=== PATIENT | female | born 1945 | race Caucasian/White ===

== ENCOUNTER 2018-11-01 23:31 | Emergency (ER) | payer MEDICARE, OTHER ==
[~2018-11-01] VITALS: Ht 154.9 cm; Wt 44.5 kg
[~2018-11-01 23:31] MED LIST: AMLO10TA6 PO; AMLO5TAB7 PO; ASPI-630 PO; ATEN25TA PO; ATOR20TA58 PO; CYAN10005 PO; HYDR-3164 PO; HYDR12.58 PO; LEVO75TA5 PO; LISI-130 PO; LISI10TA2 PO; MAGN400C PO; PANT40TA3 PO; PANT40TA5 PO; POTA10TA12 PO
[2018-11-01] MEDS ORDERED: METH4TAB2 PO (23:49)
--- NOTE | 2018-11-01 23:51 | PHYS DOC ---
Past Medical History Past Medical History: Hypertension Additional Past Medical Histor: "poor circulation" Past Surgical History: Other Additional Past Surgical Histo: stents placed in legs, knee surgery Alcohol Use: Occasionally Drug Use: None Adult General Chief Complaint Chief Complaint: SKIN RASH/ABSCESS [facility] Patient is a 73 year old female who presents with extremely itchy rash to her back, abdomen, arms and bilateral breasts. She states the rash has been ongoing for approximately 3 days. She has tried Benadryl with no relief. She states that she was seen in emergency department a week ago for a cough. She was given a codeine cough medicine and thinks that she might be having an allergic reaction to that medication. Review of Systems Review of Systems Constitutional: Denies fever or chills [] Eyes: Denies change in visual acuity, redness, or eye pain [] HENT: Denies nasal congestion or sore throat [] Respiratory: Denies cough or shortness of breath [] Cardiovascular: No additional information not addressed in HPI [] GI: Denies abdominal pain, nausea, vomiting, bloody stools or diarrhea [] : Denies dysuria or hematuria [] Musculoskeletal: Denies back pain or joint pain [] Integument: See history of present illness Neurologic: Denies headache, focal weakness or sensory changes [] Endocrine: Denies polyuria or polydipsia [] All other systems were reviewed and found to be within normal limits, except as documented in this note. Current Medications Current Medications Current Medications Medications (Trade) Dose Ordered Sig/Mathieu Start Time Stop Time Status Last Admin Dose Admin Clonidine HCl (Catapres) 0.1 mg 1X ONCE 11/02/18 00:30 11/02/18 00:31 DC 11/02/18 00:07 0.1 MG Prednisone (Prednisone) 50 mg 1X ONCE 11/02/18 00:00 11/02/18 00:01 DC 11/01/18 23:53 50 MG Allergies Allergies Allergies Coded Allergies Type Severity Reaction Last Updated Verified acetaminophen Allergy Intermediate 11/01/18 No codeine Allergy Intermediate hives 12/15/14 Yes ezetimibe Allergy Intermediate Rash 03/06/15 Yes hydrocodone Allergy Intermediate 11/01/18 No Physical Exam Physical Exam Constitutional: Well developed, well nourished, no acute distress, non-toxic appearance. [] HENT: Normocephalic, atraumatic, bilateral external ears normal, oropharynx moist, no oral exudates, nose normal. [] Eyes: PERRLA, EOMI, conjunctiva normal, no discharge. [] Neck: Normal range of motion, no tenderness, supple, no stridor. [] Cardiovascular:Heart rate regular rhythm, no murmur [] Lungs & Thorax: Bilateral breath sounds clear to auscultation [] Abdomen: Bowel sounds normal, soft, no tenderness, no masses, no pulsatile masses. [] Skin: Patient has an erythematous widespread rash to her back, bilateral arms, bilateral breasts and trunk. There is excoriation noted but no sign of secondary infection. Back: No tenderness, no CVA tenderness. [] Extremities: No tenderness, no cyanosis, no clubbing, ROM intact, no edema. [] Neurologic: Alert and oriented X 3, normal motor function, normal sensory function, no focal deficits noted. [] Psychologic: Affect normal, judgement normal, mood normal. [] Current Patient Data Vital Signs Vital Signs Date Time Temp Pulse Resp B/P (MAP) Pulse Ox O2 Delivery O2 Flow Rate FiO2 11/02/18 00:07 215 91/96 11/01/18 23:35 97.8 19 Room Air 97.8 EKG EKG [] Radiology/Procedures Radiology/Procedures [] Course & Med Decision Making Course & Med Decision Making Pertinent Labs and Imaging studies reviewed. (See chart for details) []The patient was given a dose of prednisone in the emergency department tonight. She is to start a Medrol Dosepak tomorrow. She is in agreement with this plan. Dragon Disclaimer Dragon Disclaimer This electronic medical record was generated, in whole or in part, using a voice recognition dictation system. Departure Departure Impression: Primary Impression: Skin rash Disposition: HOME, SELF-CARE Condition: STABLE Referrals: PARIS CASTILLO MD (PCP) Patient Instructions: Rash Additional Instructions: The medication as directed with food on your stomach. You're given a dose of prednisone in the emergency department for this evening so he will not need to start your medication until tomorrow. Follow-up with your primary care provider in 4 days if not improving or return to the emergency department if worsening. Scripts Methylprednisolone (MEDROL) 4 Mg Tab.ds.pk 1 PKG PO UD for rash, #1 PKG Prov: LUIS MCKINNON APRN 11/01/18 LUIS MCKINNON APRN Nov 01, 2018 23:51
[2018-11-01] MEDS: predniSONE 20 MG TABLET PO ONE (23:53)
[2018-11-02 00:07] VITALS: BP 91/96
[2018-11-02] MEDS: cloNIDine HCL 0.1 MG TABLET PO ONE (00:07)
== END 2018-11-02 | disposition home or self-care (01) ==
LOC: ER 23:31
DX: R21 Rash and other nonspecific skin eruption (principal); I10 Essential (primary) hypertension; Z88.6 Allergy status to analgesic agent; Z88.5 Allergy status to narcotic agent; Z88.8 Allergy status to other drugs, medicaments and biological substances
CPT/HCPCS: 99283; J7512

== ENCOUNTER 2019-01-07 15:13 | Inpatient (IN) | payer MEDICARE, OTHER ==
[~2019-01-07] VITALS: Ht 154.9 cm; Wt 44.5 kg
[~2019-01-07 15:13] MED LIST changes: -AMLO10TA6 PO; +AMLO10TA8 PO; +AMLO5TAB10 PO; -AMLO5TAB7 PO; +METH4TAB2 PO
[2019-01-07] MEDS ORDERED: KETOROLAC 30 MG/ML VIAL. IV ONE (16:00)
[2019-01-07] MEDS ORDERED: IV NORMAL SALINE 1000ML BAG 1,000 ML IV ONE (16:00)
[2019-01-07 16:04] LABS: BILIRUBIN,URINE NEGATIVE (NEG); CLARITY,URINE CLOUDY; COLOR,URINE YELLOW; NITRITE,URINE NEGATIVE (NEG); PROTEIN,URINE 100 mg/dL (NEG-TRACE); UROBILINOGEN,URINE 0.2 mg/dL (0.2 mg/dL)
--- NOTE | 2019-01-07 16:12 | PHYS DOC ---
Past Medical History Past Medical History: Hypertension Additional Past Medical Histor: "poor circulation" Past Surgical History: Other Additional Past Surgical Histo: stents placed in legs, knee surgery Additional Information: "I quit" when asked when she quit pt. adds, "I smoke one once in a while." Alcohol Use: Occasionally Drug Use: None Adult General Chief Complaint Chief Complaint: ABDOMINAL PAIN HPI HPI 73-year-old female presents with 3-4 day history of abdominal discomfort. The pain is partly in the left lower quadrant. She denies any fever chills or sweats. She's had no nausea or vomiting. She denies any radiation of the pain. She denies any dysuria or gross hematuria. She states there is nothing that will alleviate the pain at this point.] Review of Systems Review of Systems Constitutional: Denies fever or chills [] Eyes: Denies change in visual acuity, redness, or eye pain [] HENT: Denies nasal congestion or sore throat [] Respiratory: Denies cough or shortness of breath [] Cardiovascular: No additional information not addressed in HPI [] GI: Per history of present illness[] : Denies dysuria or hematuria [] Musculoskeletal: Denies back pain or joint pain [] Integument: Denies rash or skin lesions [] Neurologic: Denies headache, focal weakness or sensory changes [] Endocrine: Denies polyuria or polydipsia [] All other systems were reviewed and found to be within normal limits, except as documented in this note. Current Medications Current Medications Current Medications Medications (Trade) Dose Ordered Sig/Mathieu Start Time Stop Time Status Last Admin Dose Admin Ceftriaxone Sodium (Rocephin) 1 gm 1X ONCE 01/07/19 17:00 01/07/19 17:01 DC 01/07/19 18:23 1 GM Ketorolac Tromethamine (Toradol 30mg Vial) 15 mg 1X ONCE 01/07/19 16:00 01/07/19 16:01 DC 01/07/19 16:40 15 MG Sodium Chloride 1,000 ml @ 1,000 mls/hr 1X ONCE 01/07/19 16:00 01/07/19 16:59 DC 01/07/19 16:39 1,000 MLS/HR Allergies Allergies Allergies Coded Allergies Type Severity Reaction Last Updated Verified acetaminophen Allergy Intermediate 11/01/18 No codeine Allergy Intermediate hives 12/15/14 Yes ezetimibe Allergy Intermediate Rash 03/06/15 Yes hydrocodone Allergy Intermediate 11/01/18 No Physical Exam Physical Exam Constitutional: Well developed, well nourished, no acute distress, non-toxic appearance. [] HENT: Normocephalic, atraumatic, bilateral external ears normal, oropharynx moist, no oral exudates, nose normal. [] Eyes: PERRLA, EOMI, conjunctiva normal, no discharge. [] Neck: Normal range of motion, no tenderness, supple, no stridor. [] Cardiovascular:Heart rate regular rhythm, no murmur [] Lungs & Thorax: Bilateral breath sounds clear to auscultation [] Abdomen: Bowel sounds normal, soft, no tenderness, no masses, no pulsatile masses, her abdomen is really pretty benign. [] Skin: Warm, dry, no erythema, no rash. [] Back: No tenderness, no CVA tenderness. [] Extremities: No tenderness, no cyanosis, no clubbing, ROM intact, no edema. [] Neurologic: Alert and oriented X 3, normal motor function, normal sensory function, no focal deficits noted. [] Psychologic: Anxious. [] Current Patient Data Vital Signs Vital Signs Date Time Temp Pulse Resp B/P (MAP) Pulse Ox O2 Delivery O2 Flow Rate FiO2 01/07/19 17:00 64 18 192/84 (120) 91 Room Air 01/07/19 15:48 97.3 97.3 Lab Values Laboratory Tests Test 01/07/19 15:38 01/07/19 16:35 Urine Collection Type Unknown Urine Color Yellow Urine Clarity Cloudy Urine pH 8.0 Urine Specific Mitchell 1.010 Urine Protein 100 mg/dL (NEG-TRACE) Urine Glucose (UA) Negative mg/dL (NEG) Urine Ketones (Stick) Negative mg/dL (NEG) Urine Blood Moderate (NEG) Urine Nitrite Negative (NEG) Urine Bilirubin Negative (NEG) Urine Urobilinogen Dipstick 0.2 mg/dL (0.2 mg/dL) Urine Leukocyte Esterase Large (NEG) Urine RBC 6-10 /HPF (0-2) Urine WBC Tntc /HPF (0-4) Urine Bacteria Moderate /HPF (0-FEW) White Blood Count 10.0 x10^3/uL (4.0-11.0) Red Blood Count 3.32 x10^6/uL (3.50-5.40) L Hemoglobin 9.7 g/dL (12.0-15.5) L Hematocrit 29.6 % (36.0-47.0) L Mean Corpuscular Volume 89 fL (79-100) Mean Corpuscular Hemoglobin 29 pg (25-35) Mean Corpuscular Hemoglobin Concent 33 g/dL (31-37) Red Cell Distribution Width 13.8 % (11.5-14.5) Platelet Count 252 x10^3/uL (140-400) Neutrophils (%) (Auto) 76 % (31-73) H Lymphocytes (%) (Auto) 14 % (24-48) L Monocytes (%) (Auto) 7 % (0-9) Eosinophils (%) (Auto) 2 % (0-3) Basophils (%) (Auto) 1 % (0-3) Neutrophils # (Auto) 7.6 x10^3uL (1.8-7.7) Lymphocytes # (Auto) 1.4 x10^3/uL (1.0-4.8) Monocytes # (Auto) 0.7 x10^3/uL (0.0-1.1) Eosinophils # (Auto) 0.2 x10^3/uL (0.0-0.7) Basophils # (Auto) 0.1 x10^3/uL (0.0-0.2) Sodium Level 145 mmol/L (136-145) Potassium Level 3.8 mmol/L (3.5-5.1) Chloride Level 103 mmol/L (98-107) Carbon Dioxide Level 33 mmol/L (21-32) H Anion Gap 9 (6-14) Blood Urea Nitrogen 53 mg/dL (7-20) H Creatinine 7.1 mg/dL (0.6-1.0) H Estimated GFR (Cockcroft-Gault) 5.7 BUN/Creatinine Ratio 7 (6-20) Glucose Level 97 mg/dL (70-99) Calcium Level 6.4 mg/dL (8.5-10.1) L Total Bilirubin 0.2 mg/dL (0.2-1.0) Aspartate Amino Transferase (AST) 14 U/L (15-37) L Alanine Aminotransferase (ALT) 8 U/L (14-59) L Alkaline Phosphatase 120 U/L (46-116) H Total Protein 6.6 g/dL (6.4-8.2) Albumin 2.5 g/dL (3.4-5.0) L Albumin/Globulin Ratio 0.6 (1.0-1.7) L Lipase 138 U/L (73-393) Laboratory Tests 01/07/19 16:35 Laboratory Tests 01/07/19 16:35 EKG EKG [] Radiology/Procedures Radiology/Procedures [] Impressions: REASON: abd pain PROCEDURE: CT ABDOMEN PELVIS WO CONTRAST CT ABDOMEN PELVIS WO CONTRAST Indication: LLQ ABD PAIN, HX CERVICAL CA Exposure: One or more of the following individualized dose reduction techniques were utilized for this examination: 1. Automated exposure control 2. Adjustment of the mA and/or kV according to patient size 3. Use of iterative reconstruction technique. Comparison: July 20, 2013. Technique: No intravenous contrast given. No oral contrast per request. Findings: Evaluation of solid viscera, bowel and vasculature is compromised by the noncontrast technique. Atelectasis or infiltrate in the left lung base, mild. Small pericardial effusion. Coronary artery calcifications. Liver appears grossly unremarkable. Spleen not enlarged. Pancreatic head is difficult to distinguish from adjacent unopacified bowel. Pancreas otherwise appears grossly unremarkable. There are mild pancreatic calcifications, could indicate chronic pancreatitis. Adrenals are poorly defined, no definite mass. Severe atrophy and volume loss of the right kidney. No evidence of right renal calculus. There is dilatation of the right renal pelvis and proximal ureter with gradual tapering. Distal ureters are difficult to visualize. No definite ureteric calculus. Left kidney appears swollen with perinephric stranding. There is severe left hydronephrosis. Dilatation of the proximal left ureter. Ureteric stent extends from the left renal pelvis to the urinary bladder. Calcification and appears to be within the gallbladder neck, compatible with gallstone or gallstones. Aorta is calcified and ectatic. Aortoiliac stent is identified. No definite pathologic lymph node enlargement is identified. No evidence of pneumoperitoneum. Mild pelvic ascites. Gastric wall thickening likely due to nondistention. No evidence of small bowel dilatation. There is some density within the colon may be contrast from prior radiology procedure. Mild wall thickening of the sigmoid colon. Mild wall thickening of the rectum. The urinary bladder is not distended. Severe degenerative spondylosis of the lumbar spine with stenosis. Sagittal reconstructions are not available from the prior study for comparison. Degenerative changes at the skeletal pelvis. IMPRESSION: 1. Severe left hydronephrosis and dilatation of the proximal ureter, despite ureteric stent. There is also left renal swelling and perinephric stranding, could be postobstructive or due to pyelonephritis. 2. Small atrophic right kidney is again seen. Mild right hydronephrosis without definite obstructive calculus. 3. Mild atelectasis or infiltrate in the left lung base. Small pericardial effusion. 4. Limited evaluation of the pancreas. Calcifications likely due to chronic pancreatitis. 5. Cholelithiasis. 6. Mild rectosigmoid wall thickening, at least raising the question of mild colitis. 7. Lumbar spondylosis with stenosis. Electronically signed by: Luca Ness MD (01/07/2019 4:38 PM) [id number] Course & Med Decision Making Course & Med Decision Making Pertinent Labs and Imaging studies reviewed. (See chart for details) [ED course: Evaluation reveals 73-year-old female with some left flank and left lower quadrant pain. CT scan revealed a dilated proximal ureter consistent with an obstruction despite a stent in place. Her urine was infected. The patient was treated with IV fluids and Rocephin. I spoke with Dr. Castillo who agreed to accept the patient for admission. Patient was in agreement with this plan of action. Patient remained afebrile during her course she did not have an elevated white blood cell count and her pain did improve after fluids and Toradol.] Dragon Disclaimer Dragon Disclaimer This electronic medical record was generated, in whole or in part, using a voice recognition dictation system. Departure Departure Impression: Primary Impression: Ureteral obstruction Additional Impression: UTI (urinary tract infection) Disposition: 09 ADMITTED INPATIENT Admitting Physician: Paris Castillo Referrals: PARIS CASTILLO MD (PCP) Problem Qualifiers Primary Impression: Ureteral obstruction Laterality: left Qualified Codes: N13.5 - Crossing vessel and stricture of ureter without hydronephrosis Additional Impression: UTI (urinary tract infection) Urinary tract infection type: acute pyelonephritis Qualified Codes: N10 - Acute pyelonephritis KALYN DOMINGUEZ DO Jan 07, 2019 16:12
[2019-01-07 16:15] LABS: BACTERIA,URINE MODERATE /HPF (0-FEW); WBC,URINE TNTC /HPF (0-4)
--- NOTE | 2019-01-07 16:42 | RAD ---
CT ABDOMEN PELVIS WO CONTRAST Indication: LLQ ABD PAIN, HX CERVICAL CA Exposure: One or more of the following individualized dose reduction techniques were utilized for this examination: 1. Automated exposure control 2. Adjustment of the mA and/or kV according to patient size 3. Use of iterative reconstruction technique. Comparison: July 20, 2013. Technique: No intravenous contrast given. No oral contrast per request. Findings: Evaluation of solid viscera, bowel and vasculature is compromised by the noncontrast technique. Atelectasis or infiltrate in the left lung base, mild. Small pericardial effusion. Coronary artery calcifications. Liver appears grossly unremarkable. Spleen not enlarged. Pancreatic head is difficult to distinguish from adjacent unopacified bowel. Pancreas otherwise appears grossly unremarkable. There are mild pancreatic calcifications, could indicate chronic pancreatitis. Adrenals are poorly defined, no definite mass. Severe atrophy and volume loss of the right kidney. No evidence of right renal calculus. There is dilatation of the right renal pelvis and proximal ureter with gradual tapering. Distal ureters are difficult to visualize. No definite ureteric calculus. Left kidney appears swollen with perinephric stranding. There is severe left hydronephrosis. Dilatation of the proximal left ureter. Ureteric stent extends from the left renal pelvis to the urinary bladder. Calcification and appears to be within the gallbladder neck, compatible with gallstone or gallstones. Aorta is calcified and ectatic. Aortoiliac stent is identified. No definite pathologic lymph node enlargement is identified. No evidence of pneumoperitoneum. Mild pelvic ascites. Gastric wall thickening likely due to nondistention. No evidence of small bowel dilatation. There is some density within the colon may be contrast from prior radiology procedure. Mild wall thickening of the sigmoid colon. Mild wall thickening of the rectum. The urinary bladder is not distended. Severe degenerative spondylosis of the lumbar spine with stenosis. Sagittal reconstructions are not available from the prior study for comparison. Degenerative changes at the skeletal pelvis. IMPRESSION: 1. Severe left hydronephrosis and dilatation of the proximal ureter, despite ureteric stent. There is also left renal swelling and perinephric stranding, could be postobstructive or due to pyelonephritis. 2. Small atrophic right kidney is again seen. Mild right hydronephrosis without definite obstructive calculus. 3. Mild atelectasis or infiltrate in the left lung base. Small pericardial effusion. 4. Limited evaluation of the pancreas. Calcifications likely due to chronic pancreatitis. 5. Cholelithiasis. 6. Mild rectosigmoid wall thickening, at least raising the question of mild colitis. 7. Lumbar spondylosis with stenosis. Electronically signed by: Luca Ness MD (01/07/2019 4:38 PM) [facility]
[2019-01-07 16:51] LABS: BASO # 0.1 x10^3/uL (0.0-0.2); BASO % 1 % (0-3); EOS # 0.2 x10^3/uL (0.0-0.7); EOS % 2 % (0-3); HEMATOCRIT 29.6 % (36.0-47.0); HEMOGLOBIN 9.7 g/dL (12.0-15.5); LYMPH # 1.4 x10^3/uL (1.0-4.8); LYMPH % 14 % (24-48); MEAN CORPUSCULAR HEMOGLOBIN 29 pg (25-35); MEAN CORPUSCULAR HGB CONC 33 g/dL (31-37); MEAN CORPUSCULAR VOLUME 89 fL (79-100); MONO # 0.7 x10^3/uL (0.0-1.1); MONO % 7 % (0-9); NEUT # 7.6 x10^3uL (1.8-7.7); NEUT % 76 % (31-73); PLATELET COUNT 252 x10^3/uL (140-400); RED BLOOD COUNT 3.32 x10^6/uL (3.50-5.40); RED CELL DISTRIBUTION WIDTH 13.8 % (11.5-14.5)
[2019-01-07] MEDS ORDERED: cefTRIAXone IV Push 1 GM VIAL. IVP ONE (17:00)
[2019-01-07] MEDS: IV NORMAL SALINE 1000ML BAG 1,000 ML IV SCH ×2 (17:02→20:46)
[2019-01-07] MEDS ORDERED: ONDANSETRON PF 4 MG/2 ML VIAL. IV PRN (17:15)
[2019-01-07] MEDS ORDERED: fentaNYL PF VIAL 100 MCG/2 ML VIAL IV PRN (17:15)
[2019-01-07 17:17] LABS: CALCIUM 6.4 mg/dL (8.5-10.1); CREATININE 7.1 mg/dL (0.6-1.0); GFR 5.7; POTASSIUM 3.8 mmol/L (3.5-5.1)
[2019-01-07 17:23] LABS: ALBUMIN 2.5 g/dL (3.4-5.0); ALBUMIN/GLOBULIN RATIO 0.6 (1.0-1.7); TOTAL BILIRUBIN 0.2 mg/dL (0.2-1.0); TOTAL PROTEIN 6.6 g/dL (6.4-8.2)
[2019-01-07 19:00] VITALS: BP 205/89
[2019-01-07] MEDS: MAGNESIUM OXIDE 400 MG TABLET PO SCH (20:48)
[2019-01-07] MEDS: amLODIPine BESYLATE 10 MG TABLET PO SCH (20:48)
[2019-01-07] MEDS: ATENOLOL 25 MG TABLET. PO SCH (20:49)
[2019-01-07] MEDS: ATORVASTATIN CALCIUM 20 MG TABLET PO SCH (20:49)
--- NOTE | 2019-01-07 21:30 | NUR ---
The patient, EVIN GARCIA, 73 y/o, F admitted by PARIS CASTILLO MD, was given written information regarding hospital policies, unit procedures and contact persons. Belongings were checked and left in room with pt, admission assessment complete, admit packet reviewed, and plan of care discussed. Pt A&O, no c/o pain, afebrile, w/ elevated BP and lab values; MD notified and orders rcvd. Per MD, urinary catheter placed for obstruction and pt tolerated procedure well. Pt now resting, bed in lowest/locked position, and call light within reach, will continue to monitor.
[2019-01-07 23:00] VITALS: BP 185/85
[2019-01-08] MEDS: IV NORMAL SALINE 1000ML BAG 1,000 ML IV SCH ×4 (01:02→15:02)
[2019-01-08 03:00] VITALS: BP 162/77
[2019-01-08] MEDS: LEVOTHYROXINE 75 MCG TABLET PO SCH (06:31)
[2019-01-08] MEDS: PANTOPRAZOLE 40 MG TABLET.DR. PO SCH (06:31)
[2019-01-08 07:00] VITALS: BP 173/71
[2019-01-08 07:49] LABS: BASO # 0.1 x10^3/uL (0.0-0.2); BASO % 1 % (0-3); EOS # 0.3 x10^3/uL (0.0-0.7); EOS % 3 % (0-3); HEMATOCRIT 30.2 % (36.0-47.0); LYMPH # 1.5 x10^3/uL (1.0-4.8); LYMPH % 17 % (24-48); MEAN CORPUSCULAR HEMOGLOBIN 30 pg (25-35); MEAN CORPUSCULAR HGB CONC 33 g/dL (31-37); MEAN CORPUSCULAR VOLUME 89 fL (79-100); MONO # 0.6 x10^3/uL (0.0-1.1); MONO % 7 % (0-9); NEUT # 6.6 x10^3uL (1.8-7.7); NEUT % 72 % (31-73); PLATELET COUNT 237 x10^3/uL (140-400); RED BLOOD COUNT 3.39 x10^6/uL (3.50-5.40); WHITE BLOOD COUNT 9.1 x10^3/uL (4.0-11.0)
[2019-01-08] MEDS ORDERED: POTASSIUM CHLORIDE 10 MEQ TABLET.ER. PO SCH (08:00)
[2019-01-08 08:15] LABS: ALBUMIN 2.3 g/dL (3.4-5.0); ALBUMIN/GLOBULIN RATIO 0.6 (1.0-1.7); CALCIUM 6.3 mg/dL (8.5-10.1); CREATININE 6.8 mg/dL (0.6-1.0); POTASSIUM 4.3 mmol/L (3.5-5.1); TOTAL BILIRUBIN 0.2 mg/dL (0.2-1.0); TOTAL PROTEIN 6.4 g/dL (6.4-8.2)
[2019-01-08] MEDS: CYANOCOBALAMIN (VITAMIN B-12) 1,000 MCG TABLET. PO SCH (09:26)
[2019-01-08] MEDS: MAGNESIUM OXIDE 400 MG TABLET PO SCH ×3 (09:26→20:48)
[2019-01-08] MEDS: amLODIPine BESYLATE 10 MG TABLET PO SCH (09:27)
[2019-01-08] MEDS: ATENOLOL 25 MG TABLET. PO SCH (09:28)
[2019-01-08] MEDS: ASPIRIN CHEWABLE 81 MG TABLET. PO SCH (09:28)
[2019-01-08] MEDS: cloNIDine HCL 0.1 MG TABLET PO PRN (09:56)
[2019-01-08] MEDS ORDERED: ACETAMINOPHEN 325 MG TABLET. PO PRN (10:30)
[2019-01-08] MEDS ORDERED: traMADol 50 MG TABLET PO PRN (10:30)
[2019-01-08] MEDS ORDERED: fentaNYL PF VIAL 100 MCG/2 ML VIAL IV PRN (10:30)
--- NOTE | 2019-01-08 10:30 | PDOC ---
Provider Note Provider Note Patient seen. History and Physical dictated. See dictation#[id number] PARIS CASTILLO MD Jan 08, 2019 10:30
--- NOTE | 2019-01-08 10:40 | PDOC2 ---
UROLOGY CONSULT Date of Consult Date of Consult DATE: 01/08/19 TIME: 10:35 Identification/Chief Complaint Chief Complaint Hydronephrosis, indwelling left ureteral stent Source Source: Chart review, Patient History of Present Illness Reason for Visit: Patient is a 73 year old female who presented in through the ER last night with 3-4 day history of abdominal discomfort in the left lower quadrant. She had a stent inserted by Dr. Bryson last year, 05/18/19 at [facility] for a previous stent four months prior to hydronephrosis, but was unsure of the exact date during the interview; we got this information from [facility]'s clinic records system. She denies N/V, hematuria or dysuria and is actually in no pain this am. Past Medical History Cardiovascular: CHF, HTN, Hyperlipidemia, Pulmonary hypertension, Other Pulmonary: COPD, Other GI: Diverticulosis Heme/Onc: Anemia NOS, B12 deficiency Hepatobiliary: No pertinent hx Psych: No pertinent hx Musculoskeletal: No pain Rheumatologic: No pertinent hx Infectious disease: No pertinent hx Renal/: Chronic renal insuff Endocrine: Hyperthyroidism Past Surgical History Past Surgical History: Other Family History Family History: Heart Disease, Stroke Social History ALCOHOL: none Drugs: None Lives: with Family Domestic Violence: Neg Current Problem List Problems: (1) Ureteral obstruction Current Medications Current Medications Current Medications Acetaminophen (Tylenol) 650 mg PRN Q6HRS PRN PO MILD PAIN / TEMP; Start at 10:30; Status UNV Amlodipine Besylate (Norvasc) 10 mg DAILY PO Last administered on 01/08/19at 09: 27; Start 01/07/19 at 21:00 Aspirin (Children'S Aspirin) 81 mg DAILYWBKFT PO Last administered on at 09:28; Start 01/08/19 at 08:00 Atenolol (Tenormin) 25 mg DAILY PO Last administered on 01/08/19at 09:28; Start 01/07/19 at 21:00 Atorvastatin Calcium (Lipitor) 20 mg QHS PO Last administered on 01/07/19at 20: 49; Start 01/07/19 at 21:00 Ceftriaxone Sodium (Rocephin) 1 gm 1X ONCE IVP Last administered on 01/07/19at 18:23; Start 01/07/19 at 17:00; Stop 01/07/19 at 17:01; Status DC Ceftriaxone Sodium (Rocephin) 1 gm Q24H IVP ; Start 01/08/19 at 18:00 Clonidine HCl (Catapres) 0.1 mg PRN Q6HRS PRN PO HYPERTENSION, SEE COMMENTS Last administered on 01/08/19at 09:56; Start 01/07/19 at 19:30 Cyanocobalamin (Vitamin B-12) 1,000 mcg DAILY PO Last administered on at 09:26; Start 01/08/19 at 09:00 Fentanyl Citrate (Fentanyl 2ml Vial) 50 mcg PRN Q1HR PRN IV PAIN; Start at 17:15; Stop 01/08/19 at 17:14 Fentanyl Citrate (Fentanyl 2ml Vial) 50 mcg PRN Q4HRS PRN IV PAIN; Start at 10:30; Status UNV Ketorolac Tromethamine (Toradol 30mg Vial) 15 mg 1X ONCE IV Last administered on 01/07/19at 16:40; Start 01/07/19 at 16:00; Stop 01/07/19 at 16:01; Status DC Levothyroxine Sodium (Synthroid) 75 mcg DAILY06 PO Last administered on at 06:31; Start 01/08/19 at 06:00 Magnesium Oxide (Magnesium Oxide) 400 mg TID PO Last administered on 01/08/19 09:26; Start 01/07/19 at 21:00 Ondansetron HCl (Zofran) 4 mg PRN Q8HRS PRN IV NAUSEA/VOMITING; Start 01/07/19 at 17:15; Stop 01/08/19 at 17:14 Pantoprazole Sodium (Protonix) 40 mg DAILYAC PO Last administered on 01/08/19at 06:31; Start 01/08/19 at 07:30 Potassium Chloride (Klor-Con) 10 meq DAILYWBKFT PO Last administered on at 09:26; Start 01/08/19 at 08:00; Stop 01/08/19 at 10:33; Status DC Sodium Chloride 1,000 ml @ 100 mls/hr Q10H IV Last administered on 01/08/19at 06:31; Start 01/07/19 at 20:00 Sodium Chloride 1,000 ml @ 125 mls/hr Q8H IV ; Start 01/07/19 at 17:02; Stop at 17:01 Sodium Chloride 1,000 ml @ 1,000 mls/hr 1X ONCE IV Last administered on at 16:39; Start 01/07/19 at 16:00; Stop 01/07/19 at 16:59; Status DC Tramadol HCl (Ultram) 50 mg PRN Q6HRS PRN PO PAIN; Start 01/08/19 at 10:30; Status UNV Allergies Allergies: Coded Allergies: acetaminophen (Unverified Allergy, Intermediate, 11/01/18) codeine (Verified Allergy, Intermediate, hives, 12/15/14) ezetimibe (Verified Allergy, Intermediate, Rash, 03/06/15) hydrocodone (Unverified Allergy, Intermediate, 11/01/18) ROS Review Of Systems: CONSTITUTIONAL: No fever or chills EYES: No recent changes SKIN: No rash or itching CARDIOVASCULAR: No chest pain, syncope, palpitations, or edema RESPIRATORY: No SOB or cough GASTROINTESTINAL: No nausea, vomiting or abdominal pain NEUROLOGICAL: No headaches or weakness ENDOCRINE: No cold or heat intolerance GENITOURINARY: No urgency or frequency of urination MUSCULOSKELETAL: No back pain or joint pain LYMPHATICS: No enlarged lymph nodes PSYCHIATRIC: No anxiety or depression Physical Exam Physical Exam: General: Pleasant, no acute distress, well groomed Eyes: conjunctiva anicteric, eyes full range of motion ENT: moist oral mucosa, normal dentition Neck: Trachea midline, no masses Respiratory: unlabored breathing, not using accessory muscles Skin: no rashes or skin lesions on visualized skin Psych: normal mood, affect. Alert and oriented x 3. Vitals VITALS Vital Signs Date Time Temp Pulse Resp B/P (MAP) Pulse Ox O2 Delivery O2 Flow Rate FiO2 01/08/19 09:56 66 173/71 01/08/19 07:00 97.9 16 90 Room Air 97.9 Labs Labs Laboratory Tests Test 01/07/19 15:38 01/07/19 16:35 01/08/19 07:05 Urine Collection Type Unknown Urine Color Yellow Urine Clarity Cloudy Urine pH 8.0 Urine Specific [place] 1.010 Urine Protein 100 mg/dL (NEG-TRACE) Urine Glucose (UA) Negative mg/dL (NEG) Urine Ketones (Stick) Negative mg/dL (NEG) Urine Blood Moderate (NEG) Urine Nitrite Negative (NEG) Urine Bilirubin Negative (NEG) Urine Urobilinogen Dipstick 0.2 mg/dL (0.2 mg/dL) Urine Leukocyte Esterase Large (NEG) Urine RBC 6-10 /HPF (0-2) Urine WBC Tntc /HPF (0-4) Urine Bacteria Moderate /HPF (0-FEW) White Blood Count 10.0 x10^3/uL (4.0-11.0) 9.1 x10^3/uL (4.0-11.0) Red Blood Count 3.32 x10^6/uL (3.50-5.40) 3.39 x10^6/uL (3.50-5.40) Hemoglobin 9.7 g/dL (12.0-15.5) 10.0 g/dL (12.0-15.5) Hematocrit 29.6 % (36.0-47.0) 30.2 % (36.0-47.0) Mean Corpuscular Volume 89 fL (79-100) 89 fL (79-100) Mean Corpuscular Hemoglobin 29 pg (25-35) 30 pg (25-35) Mean Corpuscular Hemoglobin Concent 33 g/dL (31-37) 33 g/dL (31-37) Red Cell Distribution Width 13.8 % (11.5-14.5) 14.0 % (11.5-14.5) Platelet Count 252 x10^3/uL (140-400) 237 x10^3/uL (140-400) Neutrophils (%) (Auto) 76 % (31-73) 72 % (31-73) Lymphocytes (%) (Auto) 14 % (24-48) 17 % (24-48) Monocytes (%) (Auto) 7 % (0-9) 7 % (0-9) Eosinophils (%) (Auto) 2 % (0-3) 3 % (0-3) Basophils (%) (Auto) 1 % (0-3) 1 % (0-3) Neutrophils # (Auto) 7.6 x10^3uL (1.8-7.7) 6.6 x10^3uL (1.8-7.7) Lymphocytes # (Auto) 1.4 x10^3/uL (1.0-4.8) 1.5 x10^3/uL (1.0-4.8) Monocytes # (Auto) 0.7 x10^3/uL (0.0-1.1) 0.6 x10^3/uL (0.0-1.1) Eosinophils # (Auto) 0.2 x10^3/uL (0.0-0.7) 0.3 x10^3/uL (0.0-0.7) Basophils # (Auto) 0.1 x10^3/uL (0.0-0.2) 0.1 x10^3/uL (0.0-0.2) Sodium Level 145 mmol/L (136-145) 146 mmol/L (136-145) Potassium Level 3.8 mmol/L (3.5-5.1) 4.3 mmol/L (3.5-5.1) Chloride Level 103 mmol/L (98-107) 105 mmol/L (98-107) Carbon Dioxide Level 33 mmol/L (21-32) 29 mmol/L (21-32) Anion Gap 9 (6-14) 12 (6-14) Blood Urea Nitrogen 53 mg/dL (7-20) 48 mg/dL (7-20) Creatinine 7.1 mg/dL (0.6-1.0) 6.8 mg/dL (0.6-1.0) Estimated GFR (Cockcroft-Gault) 5.7 6.0 BUN/Creatinine Ratio 7 (6-20) 7 (6-20) Glucose Level 97 mg/dL (70-99) 82 mg/dL (70-99) Calcium Level 6.4 mg/dL (8.5-10.1) 6.3 mg/dL (8.5-10.1) Total Bilirubin 0.2 mg/dL (0.2-1.0) 0.2 mg/dL (0.2-1.0) Aspartate Amino Transf (AST/SGOT) 14 U/L (15-37) 16 U/L (15-37) Alanine Aminotransferase (ALT/SGPT) 8 U/L (14-59) 7 U/L (14-59) Alkaline Phosphatase 120 U/L (46-116) 117 U/L (46-116) Total Protein 6.6 g/dL (6.4-8.2) 6.4 g/dL (6.4-8.2) Albumin 2.5 g/dL (3.4-5.0) 2.3 g/dL (3.4-5.0) Albumin/Globulin Ratio 0.6 (1.0-1.7) 0.6 (1.0-1.7) Lipase 138 U/L (73-393) Laboratory Tests Test 01/07/19 15:38 01/07/19 16:35 01/08/19 07:05 Urine Collection Type Unknown Urine Color Yellow Urine Clarity Cloudy Urine pH 8.0 Urine Specific [place] 1.010 Urine Protein 100 mg/dL (NEG-TRACE) Urine Glucose (UA) Negative mg/dL (NEG) Urine Ketones (Stick) Negative mg/dL (NEG) Urine Blood Moderate (NEG) Urine Nitrite Negative (NEG) Urine Bilirubin Negative (NEG) Urine Urobilinogen Dipstick 0.2 mg/dL (0.2 mg/dL) Urine Leukocyte Esterase Large (NEG) Urine RBC 6-10 /HPF (0-2) Urine WBC Tntc /HPF (0-4) Urine Bacteria Moderate /HPF (0-FEW) White Blood Count 10.0 x10^3/uL (4.0-11.0) 9.1 x10^3/uL (4.0-11.0) Red Blood Count 3.32 x10^6/uL (3.50-5.40) 3.39 x10^6/uL (3.50-5.40) Hemoglobin 9.7 g/dL (12.0-15.5) 10.0 g/dL (12.0-15.5) Hematocrit 29.6 % (36.0-47.0) 30.2 % (36.0-47.0) Mean Corpuscular Volume 89 fL (79-100) 89 fL (79-100) Mean Corpuscular Hemoglobin 29 pg (25-35) 30 pg (25-35) Mean Corpuscular Hemoglobin Concent 33 g/dL (31-37) 33 g/dL (31-37) Red Cell Distribution Width 13.8 % (11.5-14.5) 14.0 % (11.5-14.5) Platelet Count 252 x10^3/uL (140-400) 237 x10^3/uL (140-400) Neutrophils (%) (Auto) 76 % (31-73) 72 % (31-73) Lymphocytes (%) (Auto) 14 % (24-48) 17 % (24-48) Monocytes (%) (Auto) 7 % (0-9) 7 % (0-9) Eosinophils (%) (Auto) 2 % (0-3) 3 % (0-3) Basophils (%) (Auto) 1 % (0-3) 1 % (0-3) Neutrophils # (Auto) 7.6 x10^3uL (1.8-7.7) 6.6 x10^3uL (1.8-7.7) Lymphocytes # (Auto) 1.4 x10^3/uL (1.0-4.8) 1.5 x10^3/uL (1.0-4.8) Monocytes # (Auto) 0.7 x10^3/uL (0.0-1.1) 0.6 x10^3/uL (0.0-1.1) Eosinophils # (Auto) 0.2 x10^3/uL (0.0-0.7) 0.3 x10^3/uL (0.0-0.7) Basophils # (Auto) 0.1 x10^3/uL (0.0-0.2) 0.1 x10^3/uL (0.0-0.2) Sodium Level 145 mmol/L (136-145) 146 mmol/L (136-145) Potassium Level 3.8 mmol/L (3.5-5.1) 4.3 mmol/L (3.5-5.1) Chloride Level 103 mmol/L (98-107) 105 mmol/L (98-107) Carbon Dioxide Level 33 mmol/L (21-32) 29 mmol/L (21-32) Anion Gap 9 (6-14) 12 (6-14) Blood Urea Nitrogen 53 mg/dL (7-20) 48 mg/dL (7-20) Creatinine 7.1 mg/dL (0.6-1.0) 6.8 mg/dL (0.6-1.0) Estimated GFR (Cockcroft-Gault) 5.7 6.0 BUN/Creatinine Ratio 7 (6-20) 7 (6-20) Glucose Level 97 mg/dL (70-99) 82 mg/dL (70-99) Calcium Level 6.4 mg/dL (8.5-10.1) 6.3 mg/dL (8.5-10.1) Total Bilirubin 0.2 mg/dL (0.2-1.0) 0.2 mg/dL (0.2-1.0) Aspartate Amino Transf (AST/SGOT) 14 U/L (15-37) 16 U/L (15-37) Alanine Aminotransferase (ALT/SGPT) 8 U/L (14-59) 7 U/L (14-59) Alkaline Phosphatase 120 U/L (46-116) 117 U/L (46-116) Total Protein 6.6 g/dL (6.4-8.2) 6.4 g/dL (6.4-8.2) Albumin 2.5 g/dL (3.4-5.0) 2.3 g/dL (3.4-5.0) Albumin/Globulin Ratio 0.6 (1.0-1.7) 0.6 (1.0-1.7) Lipase 138 U/L (73-393) Assessment/Plan Assessment/Plan Patient will be NPO at midnight for stent exchange in the morning with Dr. Bryson of [facility]. Consents entered, all questions answered. Discussed with nursing staff Will follow PROSPER MORALES APRN Jan 08, 2019 10:40
[2019-01-08 11:00] VITALS: BP 153/67
--- NOTE | 2019-01-08 11:43 | HP ---
ADMIT DATE: 01/07/2019 ADMITTING PHYSICIAN: Paris Henderson MD. HISTORY OF PRESENT ILLNESS: This 73-year-old female started having pain in the left flank 3-4 days ago. The pain continued to gradually get worse. She has had some nausea, but no vomiting. She denied any fevers, chills, diarrhea, but because the pain continued to increase in severity, she came to the Emergency Room. In the Emergency Room, the patient was noted to have an obstructive uropathy with severe left hydronephrosis and dilatation of the proximal ureter despite stenting the ureter. There is also a left renal swelling and perinephric stranding and could be postobstructive or due to pyelonephritis on the CT of the abdomen and pelvis. The patient also has a small atrophic right kidney since 2008 and also had mild right hydronephrosis without definite obstructing calculus. The patient also had chronic calcifications of the pancreas, cholelithiasis and mild rectosigmoid wall thickening and lumbar spondylosis with stenosis on CT scan. The patient's creatinine was noted to be 7.1, her baseline is 1.4-2. LABORATORY DATA: Sodium was 145, potassium 3.8, CO2 of 33, BUN 53, creatinine 7.1. Yesterday, calcium 6.4, albumin was 2.5 yesterday, albumin is 2.3 today and calcium is 6.3 today. Lipase 138. Glucose is 82. WBC count yesterday was 10, with hemoglobin of 9.7. Today, WBC count is 9.1, hemoglobin 10. Urinalysis shows large leukocyte esterase, 6-10 rbc's, and wbc's too numerous to count, moderate bacteria. Because of the obstructive uropathy and possible urinary tract infection and acute renal failure with chronic kidney disease, the patient was admitted for further evaluation and management. PAST MEDICAL HISTORY: The patient was last admitted here in 02/2015 for near syncope and SVT and left-sided ischemic colitis. She also has systolic congestive heart failure with ejection fraction of 30%, hypertension, hyperlipidemia, valve insufficiency, moderate aortic regurgitation, pulmonary hypertension, peripheral vascular disease with history of multiple stents, COPD, has a history of 1.5 cm right upper lung nodule, has diverticulosis, hemorrhoids, anemia, B12 deficiency, cholelithiasis, chronic renal insufficiency with right atrophic kidney since 2008 CKD 3. Left adrenal fullness, suspect adenoma. Hypothyroidism. PAST SURGICAL HISTORY: PVD with multiple stent placements, cholecystectomy. PAST FAMILY HISTORY: Includes coronary artery disease and stroke in maternal grandmother. SOCIAL HISTORY: The patient is , has a history of smoking, continues to smoke. No history of alcoholism or drug abuse. ALLERGIES: THE PATIENT IS ALLERGIC TO CODEINE. MEDICATIONS: Reviewed and reconciled. PHYSICAL EXAMINATION: VITAL SIGNS: Temperature 98.1, pulse 68 per minute, blood pressure 205/89 mmHg, respirations 18 per minute, blood pressure today is 173/71 mmHg. GENERAL: The patient is alert, oriented, not in acute distress. EYES: Pupils equal, reacting to light. Conjunctivae pale. Sclerae muddy. HEENT: Unremarkable. LUNGS: Decreased breath sounds at bases. CARDIOVASCULAR: S1, S2 regular. ABDOMEN: Soft, nontender, no guarding, no rigidity. Bowel sounds present. The patient does not have any left flank or left-sided tenderness, no guarding, no rigidity. Bowel sounds present. EXTREMITIES: No edema. NERVOUS SYSTEM: Alert and oriented, moves extremities. No acute changes. LABORATORY FINDINGS: As noted earlier. IMAGING: CT scan of abdomen and pelvis as noted earlier. IMPRESSION: 1. Acute renal failure with chronic kidney disease stage 3 secondary to obstructive uropathy. The patient had a left ureteral stent that was changed in July, but since then she has not followed with the urologist. I have discussed with Dr. Lozano, and they will replace a stent tomorrow. The patient is putting out good pale yellow urine last night. Her output was 800 mL. Her baseline creatinine is 1.4-2. 2. The patient has acute hypertensive crisis that is improving. 3. Chronic obstructive pulmonary disease. 4. Systolic congestive heart failure with ejection fraction of 30%. 5. Left hydronephrosis, severe. 6. Right atrophic kidney. 7. Anemia, B12 deficiency. 8. Diverticulosis. 9. History of left-sided ischemic colitis. 10. Diverticulosis. 11. Chronic obstructive pulmonary disease. 12. Peripheral vascular disease with history of multiple stents. 13. Right upper lobe nodule 1.5 cm. 14. Hyperlipidemia. 15. Moderate aortic regurgitation. 16. Pulmonary hypertension. 17. Chronic hypomagnesemia. 18. Hypothyroidism. PLAN: Continue IV fluids, hold lisinopril and also hold potassium chloride today. Consult Dr. Bryson for urology evaluation and management and Dr. Jacome for nephrology evaluation and management. We will recheck labs in a.m. For details, please refer to the orders. Condition and treatment options discussed with the patient. PARIS HENDERSON MD DR: KALANI/deepika JOB#: [id number] / [id number] GORDO
--- NOTE | 2019-01-08 12:26 | NUR ---
SW following. Discussed with RN, pt from home with . Pt having a procedure tomorrow, and having stent replaced. No SW needs at this time. SW will continue to follow.
--- NOTE | 2019-01-08 12:44 | PDOC2 ---
CONSULT Date of Consult Date of Consult DATE: 01/08/19 TIME: 12:36 Reason for Consult Reason for Consult: ALESSIA Referring Physician Referring Physician: JONATHAN Identification/Chief Complaint Chief Complaint ABD PAIN Source Source: Chart review, Patient History of Present Illness Reason for Visit: THIS IS A 73 YR OLD WITH ABD PAIN. IMAGING POS FOR SEVERE LEFT SIDED HYDRONEPHROSIS. HX OF THIS FOR WHICH SHE HAS HAD A LEFT URETERAL STENT IN THE PAST. SHE ALSO HAS A CR OF 7.1 WITH STABLE LYTES AND ACID BASE BALANCE. HER BASELINE CR IS ABOUT 1.4-2.0 C/W STAGE 3 CKD. 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 NO HX OTHER HX. HAS OCC PROBLEMS WITH BLADDER EMPTYING BUT THIS IS NOT NEW. BLADDER SCAN HERE WAS NEG. NO NEPHROTOXINS NOTED AT HOME. ALSO NOTED SOME ANEMIA WITH NO LEUCOCYTOSIS BUT UA IS POS FOR AN UTI Past Medical History Cardiovascular: CHF, HTN, Hyperlipidemia, Pulmonary hypertension, Other Pulmonary: COPD, Other GI: Diverticulosis Heme/Onc: Anemia NOS, B12 deficiency Hepatobiliary: No pertinent hx Psych: No pertinent hx Musculoskeletal: No pain Rheumatologic: No pertinent hx Infectious disease: No pertinent hx Renal/: Chronic renal insuff Endocrine: Hyperthyroidism Past Surgical History Past Surgical History: Other Family History Family History: Heart Disease, Stroke Social History ALCOHOL: none Drugs: None Lives: with Family Domestic Violence: Neg Current Problem List Problem List Problems Medical Problems: (1) Pyelonephritis Status: Acute (2) Ureteral obstruction Status: Acute (3) UTI (urinary tract infection) Status: Acute Current Medications Current Medications Current Medications Sodium Chloride 1,000 ml @ 1,000 mls/hr 1X ONCE IV Last administered on at 16:39; Start 01/07/19 at 16:00; Stop 01/07/19 at 16:59; Status DC Ketorolac Tromethamine (Toradol 30mg Vial) 15 mg 1X ONCE IV Last administered on 01/07/19at 16:40; Start 01/07/19 at 16:00; Stop 01/07/19 at 16:01; Status DC Ceftriaxone Sodium (Rocephin) 1 gm 1X ONCE IVP Last administered on 01/07/19at 18:23; Start 01/07/19 at 17:00; Stop 01/07/19 at 17:01; Status DC Ondansetron HCl (Zofran) 4 mg PRN Q8HRS PRN IV NAUSEA/VOMITING; Start 01/07/19 at 17:15; Stop 01/08/19 at 17:14 Fentanyl Citrate (Fentanyl 2ml Vial) 50 mcg PRN Q1HR PRN IV PAIN; Start at 17:15; Stop 01/08/19 at 17:14 Sodium Chloride 1,000 ml @ 125 mls/hr Q8H IV ; Start 01/07/19 at 17:02; Stop at 17:01 Clonidine HCl (Catapres) 0.1 mg PRN Q6HRS PRN PO HYPERTENSION, SEE COMMENTS Last administered on 01/08/19 09:56; Start 01/07/19 at 19:30 Atorvastatin Calcium (Lipitor) 20 mg QHS PO Last administered on 01/07/19 20: 49; Start 01/07/19 at 21:00 Atenolol (Tenormin) 25 mg DAILY PO Last administered on 01/08/19 09:28; Start 01/07/19 at 21:00 Amlodipine Besylate (Norvasc) 10 mg DAILY PO Last administered on 01/08/19 09: 27; Start 01/07/19 at 21:00 Aspirin (Children'S Aspirin) 81 mg DAILYWBKFT PO Last administered on 09:28; Start 01/08/19 at 08:00 Potassium Chloride (Klor-Con) 10 meq DAILYWBKFT PO Last administered on 09:26; Start 01/08/19 at 08:00; Stop 01/08/19 at 10:33; Status DC Magnesium Oxide (Magnesium Oxide) 400 mg TID PO Last administered on 01/08/19 09:26; Start 01/07/19 at 21:00 Pantoprazole Sodium (Protonix) 40 mg DAILYAC PO Last administered on 01/08/19 06:31; Start 01/08/19 at 07:30 Levothyroxine Sodium (Synthroid) 75 mcg DAILY06 PO Last administered on 06:31; Start 01/08/19 at 06:00 Cyanocobalamin (Vitamin B-12) 1,000 mcg DAILY PO Last administered on 3/26/ 19at 09:26; Start 01/08/19 at 09:00 Sodium Chloride 1,000 ml @ 100 mls/hr Q10H IV Last administered on 01/08/19at 06:31; Start 01/07/19 at 20:00 Ceftriaxone Sodium (Rocephin) 1 gm Q24H IVP ; Start 01/08/19 at 18:00 Acetaminophen (Tylenol) 650 mg PRN Q6HRS PRN PO MILD PAIN / TEMP; Start at 10:30 Fentanyl Citrate (Fentanyl 2ml Vial) 50 mcg PRN Q4HRS PRN IV PAIN; Start at 10:30 Tramadol HCl (Ultram) 50 mg PRN Q6HRS PRN PO MODERATE PAIN; Start 01/08/19 at 10:30 Active Scripts Active Medrol (Methylprednisolone) 4 Mg Tab.ds.pk 1 Pkg PO UD [place] 5-325 Tablet (Acetaminophen/Hydrocodone Bitart) 1 Each Tablet 1 Tab PO PRN Q6HRS PRN Reported Protonix (Pantoprazole Sodium) 40 Mg Tablet.dr 40 Mg PO DAILY Atorvastatin Calcium 20 Mg Tablet 20 Mg PO HS Aspirin 81 Mg Tab.chew 1 Tab PO DAILY Klor-Con 10 (Potassium Chloride) 10 Meq Tablet.er 1 Tab PO BID Magnesium (Magnesium Oxide) 400 Mg Capsule 1 Cap PO TID Amlodipine Besylate 10 Mg Tablet 1 Tab PO DAILY Vitamin B-12 (Cyanocobalamin (Vitamin B-12)) 1,000 Mcg Tablet 1 Tab PO DAILY Atenolol 25 Mg Tablet 1 Tab PO DAILY Levothyroxine Sodium 75 Mcg Tablet 1 Tab PO DAILY Lisinopril 40 Mg Tablet 40 Mg PO BID Allergies Allergies: Coded Allergies: acetaminophen (Unverified Allergy, Intermediate, 11/01/18) codeine (Verified Allergy, Intermediate, hives, 12/15/14) ezetimibe (Verified Allergy, Intermediate, Rash, 03/06/15) hydrocodone (Unverified Allergy, Intermediate, 11/01/18) ROS General: YES: Fatigue, Appetite PSYCHOLOGICAL ROS: YES: Anxiety, Depression Eyes: Yes Decreased vision HEENT: YES: Heacaches ALLERGY AND IMMUNOLOGY: YES: Seasonal Allergies Cardiovascular: yes Lt [place]ness Gastrointestinal: Yes Nausea, Yes Constipation Genitourinary: YES Retention Musculoskeletal: Yes Muscular Weakness Neurological: Yes Weakness Skin: Yes Dry Skin Physical Exam General: Alert, Oriented X3, Cooperative, No acute distress HEENT: Atraumatic, PERRLA, EOMI, Mucous membr. moist/pink Lungs: Clear to auscultation, Normal air movement Heart: Regular rate, Normal S1 Abdomen: Normal bowel sounds, Soft, No tenderness, No hepatosplenomegaly Extremities: No clubbing, No cyanosis, No edema Skin: No rashes, No breakdown Neuro: Normal speech, Sensation intact Psych/Mental Status: Mental status NL, Mood NL MUSCULOSKELETAL: No joint tenderness, No deformity, No swelling Vitals VITALS Vital Signs Date Time Temp Pulse Resp B/P (MAP) Pulse Ox O2 Delivery O2 Flow Rate FiO2 01/08/19 11:00 98.1 60 16 153/67 (95) 90 Room Air 98.1 Labs Labs Laboratory Tests Test 01/07/19 15:38 01/07/19 16:35 01/08/19 07:05 Urine Collection Type Unknown Urine Color Yellow Urine Clarity Cloudy Urine pH 8.0 Urine Specific [place] 1.010 Urine Protein 100 mg/dL (NEG-TRACE) Urine Glucose (UA) Negative mg/dL (NEG) Urine Ketones (Stick) Negative mg/dL (NEG) Urine Blood Moderate (NEG) Urine Nitrite Negative (NEG) Urine Bilirubin Negative (NEG) Urine Urobilinogen Dipstick 0.2 mg/dL (0.2 mg/dL) Urine Leukocyte Esterase Large (NEG) Urine RBC 6-10 /HPF (0-2) Urine WBC Tntc /HPF (0-4) Urine Bacteria Moderate /HPF (0-FEW) White Blood Count 10.0 x10^3/uL (4.0-11.0) 9.1 x10^3/uL (4.0-11.0) Red Blood Count 3.32 x10^6/uL (3.50-5.40) 3.39 x10^6/uL (3.50-5.40) Hemoglobin 9.7 g/dL (12.0-15.5) 10.0 g/dL (12.0-15.5) Hematocrit 29.6 % (36.0-47.0) 30.2 % (36.0-47.0) Mean Corpuscular Volume 89 fL (79-100) 89 fL (79-100) Mean Corpuscular Hemoglobin 29 pg (25-35) 30 pg (25-35) Mean Corpuscular Hemoglobin Concent 33 g/dL (31-37) 33 g/dL (31-37) Red Cell Distribution Width 13.8 % (11.5-14.5) 14.0 % (11.5-14.5) Platelet Count 252 x10^3/uL (140-400) 237 x10^3/uL (140-400) Neutrophils (%) (Auto) 76 % (31-73) 72 % (31-73) Lymphocytes (%) (Auto) 14 % (24-48) 17 % (24-48) Monocytes (%) (Auto) 7 % (0-9) 7 % (0-9) Eosinophils (%) (Auto) 2 % (0-3) 3 % (0-3) Basophils (%) (Auto) 1 % (0-3) 1 % (0-3) Neutrophils # (Auto) 7.6 x10^3uL (1.8-7.7) 6.6 x10^3uL (1.8-7.7) Lymphocytes # (Auto) 1.4 x10^3/uL (1.0-4.8) 1.5 x10^3/uL (1.0-4.8) Monocytes # (Auto) 0.7 x10^3/uL (0.0-1.1) 0.6 x10^3/uL (0.0-1.1) Eosinophils # (Auto) 0.2 x10^3/uL (0.0-0.7) 0.3 x10^3/uL (0.0-0.7) Basophils # (Auto) 0.1 x10^3/uL (0.0-0.2) 0.1 x10^3/uL (0.0-0.2) Sodium Level 145 mmol/L (136-145) 146 mmol/L (136-145) Potassium Level 3.8 mmol/L (3.5-5.1) 4.3 mmol/L (3.5-5.1) Chloride Level 103 mmol/L (98-107) 105 mmol/L (98-107) Carbon Dioxide Level 33 mmol/L (21-32) 29 mmol/L (21-32) Anion Gap 9 (6-14) 12 (6-14) Blood Urea Nitrogen 53 mg/dL (7-20) 48 mg/dL (7-20) Creatinine 7.1 mg/dL (0.6-1.0) 6.8 mg/dL (0.6-1.0) Estimated GFR (Cockcroft-Gault) 5.7 6.0 BUN/Creatinine Ratio 7 (6-20) 7 (6-20) Glucose Level 97 mg/dL (70-99) 82 mg/dL (70-99) Calcium Level 6.4 mg/dL (8.5-10.1) 6.3 mg/dL (8.5-10.1) Total Bilirubin 0.2 mg/dL (0.2-1.0) 0.2 mg/dL (0.2-1.0) Aspartate Amino Transf (AST/SGOT) 14 U/L (15-37) 16 U/L (15-37) Alanine Aminotransferase (ALT/SGPT) 8 U/L (14-59) 7 U/L (14-59) Alkaline Phosphatase 120 U/L (46-116) 117 U/L (46-116) Total Protein 6.6 g/dL (6.4-8.2) 6.4 g/dL (6.4-8.2) Albumin 2.5 g/dL (3.4-5.0) 2.3 g/dL (3.4-5.0) Albumin/Globulin Ratio 0.6 (1.0-1.7) 0.6 (1.0-1.7) Lipase 138 U/L (73-393) Laboratory Tests Test 01/07/19 15:38 01/07/19 16:35 01/08/19 07:05 Urine Collection Type Unknown Urine Color Yellow Urine Clarity Cloudy Urine pH 8.0 Urine Specific [place] 1.010 Urine Protein 100 mg/dL (NEG-TRACE) Urine Glucose (UA) Negative mg/dL (NEG) Urine Ketones (Stick) Negative mg/dL (NEG) Urine Blood Moderate (NEG) Urine Nitrite Negative (NEG) Urine Bilirubin Negative (NEG) Urine Urobilinogen Dipstick 0.2 mg/dL (0.2 mg/dL) Urine Leukocyte Esterase Large (NEG) Urine RBC 6-10 /HPF (0-2) Urine WBC Tntc /HPF (0-4) Urine Bacteria Moderate /HPF (0-FEW) White Blood Count 10.0 x10^3/uL (4.0-11.0) 9.1 x10^3/uL (4.0-11.0) Red Blood Count 3.32 x10^6/uL (3.50-5.40) 3.39 x10^6/uL (3.50-5.40) Hemoglobin 9.7 g/dL (12.0-15.5) 10.0 g/dL (12.0-15.5) Hematocrit 29.6 % (36.0-47.0) 30.2 % (36.0-47.0) Mean Corpuscular Volume 89 fL (79-100) 89 fL (79-100) Mean Corpuscular Hemoglobin 29 pg (25-35) 30 pg (25-35) Mean Corpuscular Hemoglobin Concent 33 g/dL (31-37) 33 g/dL (31-37) Red Cell Distribution Width 13.8 % (11.5-14.5) 14.0 % (11.5-14.5) Platelet Count 252 x10^3/uL (140-400) 237 x10^3/uL (140-400) Neutrophils (%) (Auto) 76 % (31-73) 72 % (31-73) Lymphocytes (%) (Auto) 14 % (24-48) 17 % (24-48) Monocytes (%) (Auto) 7 % (0-9) 7 % (0-9) Eosinophils (%) (Auto) 2 % (0-3) 3 % (0-3) Basophils (%) (Auto) 1 % (0-3) 1 % (0-3) Neutrophils # (Auto) 7.6 x10^3uL (1.8-7.7) 6.6 x10^3uL (1.8-7.7) Lymphocytes # (Auto) 1.4 x10^3/uL (1.0-4.8) 1.5 x10^3/uL (1.0-4.8) Monocytes # (Auto) 0.7 x10^3/uL (0.0-1.1) 0.6 x10^3/uL (0.0-1.1) Eosinophils # (Auto) 0.2 x10^3/uL (0.0-0.7) 0.3 x10^3/uL (0.0-0.7) Basophils # (Auto) 0.1 x10^3/uL (0.0-0.2) 0.1 x10^3/uL (0.0-0.2) Sodium Level 145 mmol/L (136-145) 146 mmol/L (136-145) Potassium Level 3.8 mmol/L (3.5-5.1) 4.3 mmol/L (3.5-5.1) Chloride Level 103 mmol/L (98-107) 105 mmol/L (98-107) Carbon Dioxide Level 33 mmol/L (21-32) 29 mmol/L (21-32) Anion Gap 9 (6-14) 12 (6-14) Blood Urea Nitrogen 53 mg/dL (7-20) 48 mg/dL (7-20) Creatinine 7.1 mg/dL (0.6-1.0) 6.8 mg/dL (0.6-1.0) Estimated GFR (Cockcroft-Gault) 5.7 6.0 BUN/Creatinine Ratio 7 (6-20) 7 (6-20) Glucose Level 97 mg/dL (70-99) 82 mg/dL (70-99) Calcium Level 6.4 mg/dL (8.5-10.1) 6.3 mg/dL (8.5-10.1) Total Bilirubin 0.2 mg/dL (0.2-1.0) 0.2 mg/dL (0.2-1.0) Aspartate Amino Transf (AST/SGOT) 14 U/L (15-37) 16 U/L (15-37) Alanine Aminotransferase (ALT/SGPT) 8 U/L (14-59) 7 U/L (14-59) Alkaline Phosphatase 120 U/L (46-116) 117 U/L (46-116) Total Protein 6.6 g/dL (6.4-8.2) 6.4 g/dL (6.4-8.2) Albumin 2.5 g/dL (3.4-5.0) 2.3 g/dL (3.4-5.0) Albumin/Globulin Ratio 0.6 (1.0-1.7) 0.6 (1.0-1.7) Lipase 138 U/L (73-393) Assessment/Plan Assessment/Plan IMP ALESSIA WITH CR OF 7.1 SEVERE LEFT HYDRONEPHROSIS HX OF LEFT URETERAL STENT CKD STAGE 3 WITH CR OF 1.4-2.0 AT BASELINE NON FUNCTIONING ATROPHIED RIGHT KIDNEY HX OF CM WITH EF OF 30%-COMPENSATED HD OF HTN PLAN HYDRATION ANTIBIOTICS AVOID NEPHROTOXINS UROLOGY EVAL MAINTAIN BEDOYA WILL NEED NEW LEFT URETERAL STENT D/W ATTENDING WILL FOLLOW ALFREDITO JOHNSON MD Jan 08, 2019 12:44
[2019-01-08 15:00] VITALS: BP 125/81
[2019-01-08] MEDS: cefTRIAXone IV Push 1 GM VIAL. IVP SCH (18:40)
[2019-01-08 19:00] VITALS: BP 116/65
[2019-01-08] MEDS: ATORVASTATIN CALCIUM 20 MG TABLET PO SCH (20:48)
[2019-01-08 23:00] VITALS: BP 159/84
[2019-01-09] VITALS (13 sets, daily range): BP systolic 122–176; BP diastolic 54–84
[2019-01-09] MEDS: IV NORMAL SALINE 1000ML BAG 1,000 ML IV SCH ×3 (02:26→21:15)
[2019-01-09] MEDS: cloNIDine HCL 0.1 MG TABLET PO PRN ×2 (03:30→11:46)
[2019-01-09 04:59] LABS: BASO # 0.1 x10^3/uL (0.0-0.2); BASO % 1 % (0-3); EOS # 0.3 x10^3/uL (0.0-0.7); EOS % 4 % (0-3); HEMOGLOBIN 9.3 g/dL (12.0-15.5); LYMPH # 1.7 x10^3/uL (1.0-4.8); LYMPH % 20 % (24-48); MEAN CORPUSCULAR HEMOGLOBIN 29 pg (25-35); MEAN CORPUSCULAR HGB CONC 32 g/dL (31-37); MEAN CORPUSCULAR VOLUME 90 fL (79-100); MONO # 0.6 x10^3/uL (0.0-1.1); MONO % 7 % (0-9); NEUT # 5.9 x10^3uL (1.8-7.7); NEUT % 68 % (31-73); PLATELET COUNT 228 x10^3/uL (140-400); RED BLOOD COUNT 3.23 x10^6/uL (3.50-5.40); RED CELL DISTRIBUTION WIDTH 14.1 % (11.5-14.5); WHITE BLOOD COUNT 8.6 x10^3/uL (4.0-11.0)
[2019-01-09 05:37] LABS: ALBUMIN 2.3 g/dL (3.4-5.0); ALBUMIN/GLOBULIN RATIO 0.6 (1.0-1.7); CALCIUM 6.3 mg/dL (8.5-10.1); CREATININE 6.3 mg/dL (0.6-1.0); GFR 6.5; MAGNESIUM 1.6 mg/dL (1.8-2.4); PHOSPHORUS 3.9 mg/dL (2.6-4.7); POTASSIUM 4.5 mmol/L (3.5-5.1); TOTAL BILIRUBIN 0.2 mg/dL (0.2-1.0); TOTAL PROTEIN 6.3 g/dL (6.4-8.2)
[2019-01-09] MEDS: LEVOTHYROXINE 75 MCG TABLET PO SCH (06:00)
[2019-01-09] MEDS: PANTOPRAZOLE 40 MG TABLET.DR. PO SCH (06:30)
[2019-01-09] MEDS ORDERED: PROCHLORPERAZINE 10 MG/2 ML VIAL. IV PRN (07:00)
[2019-01-09] MEDS ORDERED: fentaNYL PF VIAL 100 MCG/2 ML VIAL IV PRN ×2 (07:00)
[2019-01-09] MEDS ORDERED: ONDANSETRON PF 4 MG/2 ML VIAL. IV PRN (07:00)
[2019-01-09] MEDS ORDERED: IV RINGERS,LACTATED 1000ML 1,000 ML IV SCH (07:00)
[2019-01-09] MEDS: ATENOLOL 25 MG TABLET. PO SCH (08:03)
[2019-01-09] MEDS ORDERED: PROPOFOL 20 ML IV ONE (08:45)
[2019-01-09] MEDS ORDERED: fentaNYL PF VIAL 100 MCG/2 ML VIAL ONE (08:45)
[2019-01-09] MEDS ORDERED: LIDOCAINE 2% PF 5 ML VIAL. ONE (08:45)
[2019-01-09] MEDS ORDERED: DEXAMETHASONE SOD PHOS 20 MG/5 ML VIAL. ONE (08:45)
[2019-01-09] MEDS ORDERED: ONDANSETRON PF 4 MG/2 ML VIAL. ONE (08:45)
[2019-01-09] MEDS: MAGNESIUM OXIDE 400 MG TABLET PO SCH ×3 (09:00→21:15)
[2019-01-09] MEDS ORDERED: ePHEDrine PF IN SALINE 50 MG/10 ML SYRINGE. IV ONE (09:11)
[2019-01-09] MEDS ORDERED: GLYCOPYRROLATE 1 MG/5 ML VIAL. ONE (09:11)
--- NOTE | 2019-01-09 09:18 | NUR ---
SW following. Discussed with RN, pt is from home with and gets around fine. Pt having a procedure this morning. RN advised no SW needs at this time. SW will continue to follow.
--- NOTE | 2019-01-09 09:59 | PDOC4 ---
OPERATIVE NOTE Date: Date: Jan 09, 2019 Pre-Op Diagnosis: L hydro Post-Op Diagnosis: same Procedure Performed: cysto, re-placemt of L dbl J stent Anesthesia Type: Gen Blood Loss: min Specimans Obtained: none Findings: nl bladder, encrusted stent Complications: none Operative Note: pt admin'd GA, placed in lithotomy pos'n, prepped and draped in usual fashion cysto performed and end of stent grasped and pulled through the urethral meatus. A Zip wire was placed with the rigid end first through the end of stent and pushed into the regin of the renal pelvis under fluoroscopic cx. The stent was then removed. The wire was backloaded thru the scope working port in usual fashion. A fresh 6 x 24 cm stent (Percuflex) was then passed over the wire into the renal maria alejandra system. The wire was removed and both ends of stent coiled in good pos'n. Efflux of urine was seen exiting the distal side-ports of stent. The scope was removed. A 14-Fr whitley was placed and left to drainage. The patient was then awakened and transferred to . There were no complications. PATRICIA MERIDA MD Jan 09, 2019 09:59
--- NOTE | 2019-01-09 10:13 | PDOC ---
IM PROGRESS NOTES- Subjective Subjective Patient is sedated after exchange of the ureteral stent Objective Vitals Vital Signs Date Time Temp Pulse Resp B/P (MAP) Pulse Ox O2 Delivery O2 Flow Rate FiO2 01/09/19 08:26 97.7 62 15 203/95 90 Room Air 97.7 Input & Output Intake and Output 01/09/19 07:00 Intake Total 500 ml Output Total 3050 ml Balance -2550 ml Intake Oral 500 ml Output Urine Total 3050 ml # Bowel Movements 4 Physical Exam Physical Exam General appearance -sedated in the recovery room. Mental Status -sedated Head - normal Chest -decreased breath sounds at bases Heart - S1 and S2 normal Abdomen - soft Musculoskeletal - no muscular tenderness noted Extremities - no pedal edema Skin - warm and dry Labs Laboratory Tests Test 01/07/19 15:38 01/07/19 16:35 01/08/19 07:05 01/09/19 03:55 Urine Collection Type Unknown Urine Color Yellow Urine Clarity Cloudy Urine pH 8.0 Urine Specific [place] 1.010 Urine Protein 100 mg/dL (NEG-TRACE) Urine Glucose (UA) Negative mg/dL (NEG) Urine Ketones (Stick) Negative mg/dL (NEG) Urine Blood Moderate (NEG) Urine Nitrite Negative (NEG) Urine Bilirubin Negative (NEG) Urine Urobilinogen Dipstick 0.2 mg/dL (0.2 mg/dL) Urine Leukocyte Esterase Large (NEG) Urine RBC 6-10 /HPF (0-2) Urine WBC Tntc /HPF (0-4) Urine Bacteria Moderate /HPF (0-FEW) White Blood Count 10.0 x10^3/uL (4.0-11.0) 9.1 x10^3/uL (4.0-11.0) 8.6 x10^3/uL (4.0-11.0) Red Blood Count 3.32 x10^6/uL (3.50-5.40) 3.39 x10^6/uL (3.50-5.40) 3.23 x10^6/uL (3.50-5.40) Hemoglobin 9.7 g/dL (12.0-15.5) 10.0 g/dL (12.0-15.5) 9.3 g/dL (12.0-15.5) Hematocrit 29.6 % (36.0-47.0) 30.2 % (36.0-47.0) 29.0 % (36.0-47.0) Mean Corpuscular Volume 89 fL (79-100) 89 fL (79-100) 90 fL (79-100) Mean Corpuscular Hemoglobin 29 pg (25-35) 30 pg (25-35) 29 pg (25-35) Mean Corpuscular Hemoglobin Concent 33 g/dL (31-37) 33 g/dL (31-37) 32 g/dL (31-37) Red Cell Distribution Width 13.8 % (11.5-14.5) 14.0 % (11.5-14.5) 14.1 % (11.5-14.5) Platelet Count 252 x10^3/uL (140-400) 237 x10^3/uL (140-400) 228 x10^3/uL (140-400) Neutrophils (%) (Auto) 76 % (31-73) 72 % (31-73) 68 % (31-73) Lymphocytes (%) (Auto) 14 % (24-48) 17 % (24-48) 20 % (24-48) Monocytes (%) (Auto) 7 % (0-9) 7 % (0-9) 7 % (0-9) Eosinophils (%) (Auto) 2 % (0-3) 3 % (0-3) 4 % (0-3) Basophils (%) (Auto) 1 % (0-3) 1 % (0-3) 1 % (0-3) Neutrophils # (Auto) 7.6 x10^3uL (1.8-7.7) 6.6 x10^3uL (1.8-7.7) 5.9 x10^3uL (1.8-7.7) Lymphocytes # (Auto) 1.4 x10^3/uL (1.0-4.8) 1.5 x10^3/uL (1.0-4.8) 1.7 x10^3/uL (1.0-4.8) Monocytes # (Auto) 0.7 x10^3/uL (0.0-1.1) 0.6 x10^3/uL (0.0-1.1) 0.6 x10^3/uL (0.0-1.1) Eosinophils # (Auto) 0.2 x10^3/uL (0.0-0.7) 0.3 x10^3/uL (0.0-0.7) 0.3 x10^3/uL (0.0-0.7) Basophils # (Auto) 0.1 x10^3/uL (0.0-0.2) 0.1 x10^3/uL (0.0-0.2) 0.1 x10^3/uL (0.0-0.2) Sodium Level 145 mmol/L (136-145) 146 mmol/L (136-145) 146 mmol/L (136-145) Potassium Level 3.8 mmol/L (3.5-5.1) 4.3 mmol/L (3.5-5.1) 4.5 mmol/L (3.5-5.1) Chloride Level 103 mmol/L (98-107) 105 mmol/L (98-107) 108 mmol/L (98-107) Carbon Dioxide Level 33 mmol/L (21-32) 29 mmol/L (21-32) 27 mmol/L (21-32) Anion Gap 9 (6-14) 12 (6-14) 11 (6-14) Blood Urea Nitrogen 53 mg/dL (7-20) 48 mg/dL (7-20) 45 mg/dL (7-20) Creatinine 7.1 mg/dL (0.6-1.0) 6.8 mg/dL (0.6-1.0) 6.3 mg/dL (0.6-1.0) Estimated GFR (Cockcroft-Gault) 5.7 6.0 6.5 BUN/Creatinine Ratio 7 (6-20) 7 (6-20) 7 (6-20) Glucose Level 97 mg/dL (70-99) 82 mg/dL (70-99) 79 mg/dL (70-99) Calcium Level 6.4 mg/dL (8.5-10.1) 6.3 mg/dL (8.5-10.1) 6.3 mg/dL (8.5-10.1) Total Bilirubin 0.2 mg/dL (0.2-1.0) 0.2 mg/dL (0.2-1.0) 0.2 mg/dL (0.2-1.0) Aspartate Amino Transf (AST/SGOT) 14 U/L (15-37) 16 U/L (15-37) 12 U/L (15-37) Alanine Aminotransferase (ALT/SGPT) 8 U/L (14-59) 7 U/L (14-59) 8 U/L (14-59) Alkaline Phosphatase 120 U/L (46-116) 117 U/L (46-116) 116 U/L (46-116) Total Protein 6.6 g/dL (6.4-8.2) 6.4 g/dL (6.4-8.2) 6.3 g/dL (6.4-8.2) Albumin 2.5 g/dL (3.4-5.0) 2.3 g/dL (3.4-5.0) 2.3 g/dL (3.4-5.0) Albumin/Globulin Ratio 0.6 (1.0-1.7) 0.6 (1.0-1.7) 0.6 (1.0-1.7) Lipase 138 U/L (73-393) Phosphorus Level 3.9 mg/dL (2.6-4.7) Magnesium Level 1.6 mg/dL (1.8-2.4) Laboratory Tests Test 01/09/19 03:55 White Blood Count 8.6 x10^3/uL (4.0-11.0) Red Blood Count 3.23 x10^6/uL (3.50-5.40) Hemoglobin 9.3 g/dL (12.0-15.5) Hematocrit 29.0 % (36.0-47.0) Mean Corpuscular Volume 90 fL (79-100) Mean Corpuscular Hemoglobin 29 pg (25-35) Mean Corpuscular Hemoglobin Concent 32 g/dL (31-37) Red Cell Distribution Width 14.1 % (11.5-14.5) Platelet Count 228 x10^3/uL (140-400) Neutrophils (%) (Auto) 68 % (31-73) Lymphocytes (%) (Auto) 20 % (24-48) Monocytes (%) (Auto) 7 % (0-9) Eosinophils (%) (Auto) 4 % (0-3) Basophils (%) (Auto) 1 % (0-3) Neutrophils # (Auto) 5.9 x10^3uL (1.8-7.7) Lymphocytes # (Auto) 1.7 x10^3/uL (1.0-4.8) Monocytes # (Auto) 0.6 x10^3/uL (0.0-1.1) Eosinophils # (Auto) 0.3 x10^3/uL (0.0-0.7) Basophils # (Auto) 0.1 x10^3/uL (0.0-0.2) Sodium Level 146 mmol/L (136-145) Potassium Level 4.5 mmol/L (3.5-5.1) Chloride Level 108 mmol/L (98-107) Carbon Dioxide Level 27 mmol/L (21-32) Anion Gap 11 (6-14) Blood Urea Nitrogen 45 mg/dL (7-20) Creatinine 6.3 mg/dL (0.6-1.0) Estimated GFR (Cockcroft-Gault) 6.5 BUN/Creatinine Ratio 7 (6-20) Glucose Level 79 mg/dL (70-99) Calcium Level 6.3 mg/dL (8.5-10.1) Phosphorus Level 3.9 mg/dL (2.6-4.7) Magnesium Level 1.6 mg/dL (1.8-2.4) Total Bilirubin 0.2 mg/dL (0.2-1.0) Aspartate Amino Transf (AST/SGOT) 12 U/L (15-37) Alanine Aminotransferase (ALT/SGPT) 8 U/L (14-59) Alkaline Phosphatase 116 U/L (46-116) Total Protein 6.3 g/dL (6.4-8.2) Albumin 2.3 g/dL (3.4-5.0) Albumin/Globulin Ratio 0.6 (1.0-1.7) Meds Current Medications Acetaminophen (Tylenol) 650 mg PRN Q6HRS PRN PO MILD PAIN / TEMP; Start at 10:30 Ceftriaxone Sodium (Rocephin) 1 gm Q24H IVP Last administered on 01/08/19at 18: 40; Start 01/08/19 at 18:00 Dexamethasone Sodium Phosphate (Decadron) 20 mg STK-MED ONCE .ROUTE ; Start at 08:45; Stop 01/09/19 at 08:46; Status DC Ephedrine Sulfate (ePHEDrine PF IN SALINE SYRINGE) 50 mg STK-MED ONCE IV ; Start 01/09/19 at 09:11; Stop 01/09/19 at 09:12; Status DC Fentanyl Citrate (Fentanyl 2ml Vial) 25 mcg PRN Q5MIN PRN IV MILD PAIN; Start 01/09/19 at 07:00; Stop 01/09/19 at 19:00 Fentanyl Citrate (Fentanyl 2ml Vial) 50 mcg PRN Q4HRS PRN IV PAIN; Start at 10:30 Fentanyl Citrate (Fentanyl 2ml Vial) 50 mcg PRN Q5MIN PRN IV MODERATE TO SEVERE PAIN; Start 01/09/19 at 07:00; Stop 01/09/19 at 19:00 Fentanyl Citrate (Fentanyl 2ml Vial) 100 mcg STK-MED ONCE .ROUTE ; Start at 08:45; Stop 01/09/19 at 08:46; Status DC Glycopyrrolate (Robinul) 1 mg STK-MED ONCE .ROUTE ; Start 01/09/19 at 09:11; Stop 01/09/19 at 09:12; Status DC Lidocaine HCl (Lidocaine Pf 2% Vial) 5 ml STK-MED ONCE .ROUTE ; Start 01/09/19 at 08:45; Stop 01/09/19 at 08:46; Status DC Ondansetron HCl (Zofran) 4 mg PRN Q6HRS PRN IV NAUSEA/VOMITING; Start 01/09/19 at 07:00; Stop 01/09/19 at 19:00 Ondansetron HCl (Zofran) 4 mg STK-MED ONCE .ROUTE ; Start 01/09/19 at 08:45; Stop 01/09/19 at 08:46; Status DC Prochlorperazine Edisylate (Compazine) 5 mg PACU PRN PRN IV NAUSEA, MRX1; Start 01/09/19 at 07:00; Stop 01/09/19 at 19:00 Propofol 20 ml @ As Directed STK-MED ONCE IV ; Start 01/09/19 at 08:45; Stop at 08:46; Status DC Ringer's Solution 1,000 ml @ 30 mls/hr Q24H IV ; Start 01/09/19 at 07:00; Stop 01/09/19 at 18:59 Tramadol HCl (Ultram) 50 mg PRN Q6HRS PRN PO MODERATE PAIN; Start 01/08/19 at 10:30 Assessment Assessment 1. Acute renal failure with chronic kidney disease stage 3 secondary to obstructive uropathy. The patient had a left ureteral stent that was changed in July, but since then she has not followed with the urologist. I have discussed with Dr. Lozano, and they will replace a stent tomorrow. The patient is putting out good pale yellow urine last night. Her output was 800 mL. Her baseline creatinine is 1.4-2. 2. The patient has acute hypertensive crisis that is improving. 3. Chronic obstructive pulmonary disease. 4. Systolic congestive heart failure with ejection fraction of 30%. 5. Left hydronephrosis, severe. 6. Right atrophic kidney. 7. Anemia, B12 deficiency. 8. Diverticulosis. 9. History of left-sided ischemic colitis. 10. Diverticulosis. 11. Chronic obstructive pulmonary disease. 12. Peripheral vascular disease with history of multiple stents. 13. Right upper lobe nodule 1.5 cm. 14. Hyperlipidemia. 15. Moderate aortic regurgitation. 16. Pulmonary hypertension. 17. Chronic hypomagnesemia. 18. Hypothyroidism. PLAN: Continue IV fluids, hold lisinopril and also hold potassium chloride today. Consult for urology evaluation and management and Dr. Jacome for nephrology evaluation and management. We will recheck labs in a.m. For details, please refer to the orders. Condition and treatment options discussed with the patient. Accelerated hypertension- systolic blood pressure was 202 this morning and she was only given 1 dose of beta lópez prior to surgery. I'll order hydralazine 10 mg IV every 4 hours when necessary for systolic blood pressure over 160. Continue when necessary clonidine and other medications. Acute renal failure with chronic kidney disease. Creatinine is still elevated. Discussed with will see if the creatinine improves after the procedure. Plan Plan For more details regarding further plans, please refer to the orders. PARIS CASTILLO MD Jan 09, 2019 10:13
[2019-01-09] MEDS ORDERED: hydrALAZINE 20 MG/ML VIAL. IVP PRN (10:15)
[2019-01-09] MEDS ORDERED: SEVOFLURANE 31 TO 60 MINUTES. IH ONE (10:18)
[2019-01-09] MEDS: ASPIRIN CHEWABLE 81 MG TABLET. PO SCH (11:38)
[2019-01-09] MEDS: CYANOCOBALAMIN (VITAMIN B-12) 1,000 MCG TABLET. PO SCH (11:39)
[2019-01-09] MEDS: amLODIPine BESYLATE 10 MG TABLET PO SCH (11:47)
--- NOTE | 2019-01-09 14:40 | PDOC ---
Renal-Progress Notes Subjective Notes Notes NONE History of Present Illness Hx of present illness STABLE Vitals Vitals Vital Signs Date Time Temp Pulse Resp B/P (MAP) Pulse Ox O2 Delivery O2 Flow Rate FiO2 01/09/19 11:47 61 147/71 01/09/19 11:15 97.7 18 98 Nasal Cannula 2.0 97.7 Weight Weight [ ] I.O. Intake and Output Intake and Output 01/09/19 07:00 Intake Total 500 ml Output Total 3050 ml Balance -2550 ml Intake Oral 500 ml Output Urine Total 3050 ml # Bowel Movements 4 Labs Labs Laboratory Tests Test 01/09/19 03:55 White Blood Count 8.6 x10^3/uL (4.0-11.0) Red Blood Count 3.23 x10^6/uL (3.50-5.40) Hemoglobin 9.3 g/dL (12.0-15.5) Hematocrit 29.0 % (36.0-47.0) Mean Corpuscular Volume 90 fL (79-100) Mean Corpuscular Hemoglobin 29 pg (25-35) Mean Corpuscular Hemoglobin Concent 32 g/dL (31-37) Red Cell Distribution Width 14.1 % (11.5-14.5) Platelet Count 228 x10^3/uL (140-400) Neutrophils (%) (Auto) 68 % (31-73) Lymphocytes (%) (Auto) 20 % (24-48) Monocytes (%) (Auto) 7 % (0-9) Eosinophils (%) (Auto) 4 % (0-3) Basophils (%) (Auto) 1 % (0-3) Neutrophils # (Auto) 5.9 x10^3uL (1.8-7.7) Lymphocytes # (Auto) 1.7 x10^3/uL (1.0-4.8) Monocytes # (Auto) 0.6 x10^3/uL (0.0-1.1) Eosinophils # (Auto) 0.3 x10^3/uL (0.0-0.7) Basophils # (Auto) 0.1 x10^3/uL (0.0-0.2) Sodium Level 146 mmol/L (136-145) Potassium Level 4.5 mmol/L (3.5-5.1) Chloride Level 108 mmol/L (98-107) Carbon Dioxide Level 27 mmol/L (21-32) Anion Gap 11 (6-14) Blood Urea Nitrogen 45 mg/dL (7-20) Creatinine 6.3 mg/dL (0.6-1.0) Estimated GFR (Cockcroft-Gault) 6.5 BUN/Creatinine Ratio 7 (6-20) Glucose Level 79 mg/dL (70-99) Calcium Level 6.3 mg/dL (8.5-10.1) Phosphorus Level 3.9 mg/dL (2.6-4.7) Magnesium Level 1.6 mg/dL (1.8-2.4) Total Bilirubin 0.2 mg/dL (0.2-1.0) Aspartate Amino Transf (AST/SGOT) 12 U/L (15-37) Alanine Aminotransferase (ALT/SGPT) 8 U/L (14-59) Alkaline Phosphatase 116 U/L (46-116) Total Protein 6.3 g/dL (6.4-8.2) Albumin 2.3 g/dL (3.4-5.0) Albumin/Globulin Ratio 0.6 (1.0-1.7) Micro Micro Microbiology 01/07/19 Urine Culture - Preliminary, Resulted 01/07/19 Urine Culture Result 1 (SCOTT) - Preliminary, Resulted Review of Systems Constitutional: yes: alert, oriented Ears/Nose/Throat: Yes: no symptom reported Eyes: Yes: no symptom reported Pulmonary: Yes no symptom reported Cardiovascular: Yes no symptom reported Gastrointestional: Yes: no symptom reported Genitourinary: Yes: no symptom reported Musculoskeletal: Yes: no symptom reported Skin: Yes no symptom reported Psychiatric/Neurological: Yes: no symptom reported Endocrine: Yes: no symptom reported Physical Exam General Appearance: no apparent distress Skin: warm Heart: S1S2 Abdomen: soft, bowel sounds present Genitourinary: bladder flat Extremities: pulses present Neurology: alert, oriented Musculoskeletal: No pain Assessment Assessment IMP ALESSIA WITH CR OF 6.3 SEVERE LEFT HYDRONEPHROSIS HX OF LEFT URETERAL STENT CKD STAGE 3 WITH CR OF 1.4-2.0 AT BASELINE NON FUNCTIONING ATROPHIED RIGHT KIDNEY HX OF CM WITH EF OF 30%-COMPENSATED HD OF HTN PLAN HYDRATION ANTIBIOTICS AVOID NEPHROTOXINS URETERAL STENT WITH CYSTO TODAY MAINTAIN BEDOYA START ARANESP LABS IN AM D/W ATTENDING ALFREDITO JOHNSON MD Jan 09, 2019 14:40
[2019-01-09] MEDS: cefTRIAXone IV Push 1 GM VIAL. IVP SCH (18:57)
[2019-01-09] MEDS: ATORVASTATIN CALCIUM 20 MG TABLET PO SCH (21:15)
[2019-01-10 03:00] VITALS: BP 144/64
[2019-01-10 04:28] LABS: BASO % 0 % (0-3); EOS % 0 % (0-3); HEMATOCRIT 29.1 % (36.0-47.0); HEMOGLOBIN 9.5 g/dL (12.0-15.5); LYMPH # 0.6 x10^3/uL (1.0-4.8); LYMPH % 8 % (24-48); MEAN CORPUSCULAR HEMOGLOBIN 30 pg (25-35); MEAN CORPUSCULAR HGB CONC 33 g/dL (31-37); MEAN CORPUSCULAR VOLUME 90 fL (79-100); MONO # 0.1 x10^3/uL (0.0-1.1); MONO % 1 % (0-9); NEUT # 7.1 x10^3uL (1.8-7.7); NEUT % 91 % (31-73); PLATELET COUNT 256 x10^3/uL (140-400); RED BLOOD COUNT 3.24 x10^6/uL (3.50-5.40); RED CELL DISTRIBUTION WIDTH 13.9 % (11.5-14.5); WHITE BLOOD COUNT 7.8 x10^3/uL (4.0-11.0)
[2019-01-10 05:05] LABS: ALBUMIN 2.2 g/dL (3.4-5.0); ALBUMIN/GLOBULIN RATIO 0.6 (1.0-1.7); CALCIUM 6.5 mg/dL (8.5-10.1); CREATININE 5.8 mg/dL (0.6-1.0); GFR 7.2; POTASSIUM 5.1 mmol/L (3.5-5.1); TOTAL BILIRUBIN 0.1 mg/dL (0.2-1.0); TOTAL PROTEIN 6.2 g/dL (6.4-8.2)
[2019-01-10] MEDS: PANTOPRAZOLE 40 MG TABLET.DR. PO SCH (05:59)
[2019-01-10] MEDS: LEVOTHYROXINE 75 MCG TABLET PO SCH (05:59)
[2019-01-10 07:00] VITALS: BP 146/64
[2019-01-10] MEDS: IV NORMAL SALINE 1000ML BAG 1,000 ML IV SCH ×3 (08:35→22:37)
[2019-01-10] MEDS: CYANOCOBALAMIN (VITAMIN B-12) 1,000 MCG TABLET. PO SCH (08:36)
[2019-01-10] MEDS: MAGNESIUM OXIDE 400 MG TABLET PO SCH ×3 (08:37→22:23)
[2019-01-10] MEDS: amLODIPine BESYLATE 10 MG TABLET PO SCH (08:37)
[2019-01-10] MEDS: ATENOLOL 25 MG TABLET. PO SCH (08:37)
[2019-01-10] MEDS: ASPIRIN CHEWABLE 81 MG TABLET. PO SCH (08:38)
--- NOTE | 2019-01-10 09:15 | PDOC ---
SUBJECTIVE Subjective Pt doing well this am. Catheter not bothering her. She is walking around but no BM yet. OBJECTIVE Objective Physical Exam: General appearance: Alert and Oriented Head: Normocephalic, without obvious abnormality Eyes: conjunctivae/corneas clear. PERRL, EOM's intact. Fundi benign Back: no flank pain bilaterally Lungs: Regular respirations, non labored breathing Abdomen: soft, non-tender No masses, no organomegaly Pelvic: + Blair catheter in place draining clear, yellow urine. Device in good working order. Vital Signs Vital Signs Date Time Temp Pulse Resp B/P (MAP) Pulse Ox O2 Delivery O2 Flow Rate FiO2 01/10/19 08:37 61 146/64 01/10/19 08:37 61 146/64 01/10/19 07:00 99.3 61 18 146/64 (91) 94 Room Air 99.3 01/10/19 03:00 98.6 70 18 144/64 (90) 93 Room Air 98.6 01/09/19 23:00 98.1 61 18 130/60 (83) 91 Room Air 98.1 01/09/19 20:30 Room Air 01/09/19 19:00 98.6 57 18 140/55 (83) 97 Room Air 98.6 01/09/19 15:00 60 18 122/54 (76) 99 Room Air 01/09/19 14:00 54 18 133/61 (85) 99 Room Air 01/09/19 13:31 57 18 137/59 (85) 96 Room Air 01/09/19 13:00 56 18 140/58 (85) 97 Room Air 01/09/19 12:30 58 18 153/69 (97) 98 Room Air 01/09/19 12:15 60 18 151/84 (106) 96 01/09/19 12:00 57 18 176/71 (106) 98 Room Air 01/09/19 11:47 61 147/71 01/09/19 11:46 59 172/74 01/09/19 11:45 59 18 168/67 (100) 99 Nasal Cannula 01/09/19 11:15 97.7 59 18 172/74 (106) 98 Nasal Cannula 2.0 97.7 01/09/19 11:13 98.1 61 17 147/71 96 Nasal Cannula 2 98.1 01/09/19 10:59 Nasal Cannula 2 3/27/19 10:58 98.1 58 18 155/76 96 Nasal Cannula 2 98.1 01/09/19 10:43 98.1 60 24 150/68 96 Nasal Cannula 2 98.1 01/09/19 10:28 97.9 62 24 129/57 100 Simple Mask 10 97.9 01/09/19 10:13 97.9 63 17 136/54 100 Simple Mask 10 97.9 01/09/19 09:58 97.9 67 16 140/57 100 Simple Mask 10 97.9 01/09/19 09:58 Mask 10 I & O Intake and Output 01/10/19 07:00 Intake Total 900 ml Output Total 1355 ml Balance -455 ml Intake Oral 450 ml IV Total 450 ml Output Urine Total 1350 ml Estimated Blood Loss 5 ml PHYSICAL EXAM Physical Exam General appearance: Alert and Oriented Head: Normocephalic, without obvious abnormality Eyes: conjunctivae/corneas clear. PERRL, EOM's intact. Fundi benign Back: no flank pain bilaterally Lungs: Regular respirations, non labored breathing Abdomen: soft, non-tender No masses, no organomegaly Pelvic: + Blair catheter in place draining clear, yellow urine. Device in good working order. ASSESSMENT/PLAN Assessment/Plan Encouraged movement, good bowel program. If she is having bowel movements, this will increase her chances for success with a voiding trial when it does take place. CORPORATE TRAVEL COORDINATOR does show some decrease with stent insertion, but still not down to NL at 5.8. Recommend keeping catheter for a few more days for max drainage. Will follow Computer Systems Administrator trend, if not significantly better will get renal ultrasound to evaluate further. COMMENT Lab Laboratory Tests Test 01/10/19 03:30 White Blood Count 7.8 x10^3/uL (4.0-11.0) Red Blood Count 3.24 x10^6/uL (3.50-5.40) Hemoglobin 9.5 g/dL (12.0-15.5) Hematocrit 29.1 % (36.0-47.0) Mean Corpuscular Volume 90 fL (79-100) Mean Corpuscular Hemoglobin 30 pg (25-35) Mean Corpuscular Hemoglobin Concent 33 g/dL (31-37) Red Cell Distribution Width 13.9 % (11.5-14.5) Platelet Count 256 x10^3/uL (140-400) Neutrophils (%) (Auto) 91 % (31-73) Lymphocytes (%) (Auto) 8 % (24-48) Monocytes (%) (Auto) 1 % (0-9) Eosinophils (%) (Auto) 0 % (0-3) Basophils (%) (Auto) 0 % (0-3) Neutrophils # (Auto) 7.1 x10^3uL (1.8-7.7) Lymphocytes # (Auto) 0.6 x10^3/uL (1.0-4.8) Monocytes # (Auto) 0.1 x10^3/uL (0.0-1.1) Eosinophils # (Auto) 0.0 x10^3/uL (0.0-0.7) Basophils # (Auto) 0.0 x10^3/uL (0.0-0.2) Sodium Level 140 mmol/L (136-145) Potassium Level 5.1 mmol/L (3.5-5.1) Chloride Level 106 mmol/L (98-107) Carbon Dioxide Level 22 mmol/L (21-32) Anion Gap 12 (6-14) Blood Urea Nitrogen 45 mg/dL (7-20) Creatinine 5.8 mg/dL (0.6-1.0) Estimated GFR (Cockcroft-Gault) 7.2 BUN/Creatinine Ratio 8 (6-20) Glucose Level 198 mg/dL (70-99) Calcium Level 6.5 mg/dL (8.5-10.1) Total Bilirubin 0.1 mg/dL (0.2-1.0) Aspartate Amino Transf (AST/SGOT) 14 U/L (15-37) Alanine Aminotransferase (ALT/SGPT) 7 U/L (14-59) Alkaline Phosphatase 116 U/L (46-116) Total Protein 6.2 g/dL (6.4-8.2) Albumin 2.2 g/dL (3.4-5.0) Albumin/Globulin Ratio 0.6 (1.0-1.7) PROSPER MORALES APRN Jan 10, 2019 09:15
[2019-01-10 11:00] VITALS: BP 121/55
--- NOTE | 2019-01-10 11:25 | PDOC ---
IM PROGRESS NOTES- Subjective Subjective Patient is sedated after exchange of the ureteral stent Objective Vitals Vital Signs Date Time Temp Pulse Resp B/P (MAP) Pulse Ox O2 Delivery O2 Flow Rate FiO2 01/10/19 08:37 61 146/64 01/10/19 07:00 99.3 18 94 Room Air 99.3 01/09/19 11:15 2.0 Input & Output Intake and Output 01/10/19 07:00 Intake Total 900 ml Output Total 1355 ml Balance -455 ml Intake Oral 450 ml IV Total 450 ml Output Urine Total 1350 ml Estimated Blood Loss 5 ml Physical Exam Physical Exam General appearance -sedated in the recovery room. Mental Status -sedated Head - normal Chest -decreased breath sounds at bases Heart - S1 and S2 normal Abdomen - soft Musculoskeletal - no muscular tenderness noted Extremities - no pedal edema Skin - warm and dry Labs Laboratory Tests Test 01/09/19 03:55 01/10/19 03:30 White Blood Count 8.6 x10^3/uL (4.0-11.0) 7.8 x10^3/uL (4.0-11.0) Red Blood Count 3.23 x10^6/uL (3.50-5.40) 3.24 x10^6/uL (3.50-5.40) Hemoglobin 9.3 g/dL (12.0-15.5) 9.5 g/dL (12.0-15.5) Hematocrit 29.0 % (36.0-47.0) 29.1 % (36.0-47.0) Mean Corpuscular Volume 90 fL (79-100) 90 fL (79-100) Mean Corpuscular Hemoglobin 29 pg (25-35) 30 pg (25-35) Mean Corpuscular Hemoglobin Concent 32 g/dL (31-37) 33 g/dL (31-37) Red Cell Distribution Width 14.1 % (11.5-14.5) 13.9 % (11.5-14.5) Platelet Count 228 x10^3/uL (140-400) 256 x10^3/uL (140-400) Neutrophils (%) (Auto) 68 % (31-73) 91 % (31-73) Lymphocytes (%) (Auto) 20 % (24-48) 8 % (24-48) Monocytes (%) (Auto) 7 % (0-9) 1 % (0-9) Eosinophils (%) (Auto) 4 % (0-3) 0 % (0-3) Basophils (%) (Auto) 1 % (0-3) 0 % (0-3) Neutrophils # (Auto) 5.9 x10^3uL (1.8-7.7) 7.1 x10^3uL (1.8-7.7) Lymphocytes # (Auto) 1.7 x10^3/uL (1.0-4.8) 0.6 x10^3/uL (1.0-4.8) Monocytes # (Auto) 0.6 x10^3/uL (0.0-1.1) 0.1 x10^3/uL (0.0-1.1) Eosinophils # (Auto) 0.3 x10^3/uL (0.0-0.7) 0.0 x10^3/uL (0.0-0.7) Basophils # (Auto) 0.1 x10^3/uL (0.0-0.2) 0.0 x10^3/uL (0.0-0.2) Sodium Level 146 mmol/L (136-145) 140 mmol/L (136-145) Potassium Level 4.5 mmol/L (3.5-5.1) 5.1 mmol/L (3.5-5.1) Chloride Level 108 mmol/L (98-107) 106 mmol/L (98-107) Carbon Dioxide Level 27 mmol/L (21-32) 22 mmol/L (21-32) Anion Gap 11 (6-14) 12 (6-14) Blood Urea Nitrogen 45 mg/dL (7-20) 45 mg/dL (7-20) Creatinine 6.3 mg/dL (0.6-1.0) 5.8 mg/dL (0.6-1.0) Estimated GFR (Cockcroft-Gault) 6.5 7.2 BUN/Creatinine Ratio 7 (6-20) 8 (6-20) Glucose Level 79 mg/dL (70-99) 198 mg/dL (70-99) Calcium Level 6.3 mg/dL (8.5-10.1) 6.5 mg/dL (8.5-10.1) Phosphorus Level 3.9 mg/dL (2.6-4.7) Magnesium Level 1.6 mg/dL (1.8-2.4) Total Bilirubin 0.2 mg/dL (0.2-1.0) 0.1 mg/dL (0.2-1.0) Aspartate Amino Transf (AST/SGOT) 12 U/L (15-37) 14 U/L (15-37) Alanine Aminotransferase (ALT/SGPT) 8 U/L (14-59) 7 U/L (14-59) Alkaline Phosphatase 116 U/L (46-116) 116 U/L (46-116) Total Protein 6.3 g/dL (6.4-8.2) 6.2 g/dL (6.4-8.2) Albumin 2.3 g/dL (3.4-5.0) 2.2 g/dL (3.4-5.0) Albumin/Globulin Ratio 0.6 (1.0-1.7) 0.6 (1.0-1.7) Laboratory Tests Test 01/10/19 03:30 White Blood Count 7.8 x10^3/uL (4.0-11.0) Red Blood Count 3.24 x10^6/uL (3.50-5.40) Hemoglobin 9.5 g/dL (12.0-15.5) Hematocrit 29.1 % (36.0-47.0) Mean Corpuscular Volume 90 fL (79-100) Mean Corpuscular Hemoglobin 30 pg (25-35) Mean Corpuscular Hemoglobin Concent 33 g/dL (31-37) Red Cell Distribution Width 13.9 % (11.5-14.5) Platelet Count 256 x10^3/uL (140-400) Neutrophils (%) (Auto) 91 % (31-73) Lymphocytes (%) (Auto) 8 % (24-48) Monocytes (%) (Auto) 1 % (0-9) Eosinophils (%) (Auto) 0 % (0-3) Basophils (%) (Auto) 0 % (0-3) Neutrophils # (Auto) 7.1 x10^3uL (1.8-7.7) Lymphocytes # (Auto) 0.6 x10^3/uL (1.0-4.8) Monocytes # (Auto) 0.1 x10^3/uL (0.0-1.1) Eosinophils # (Auto) 0.0 x10^3/uL (0.0-0.7) Basophils # (Auto) 0.0 x10^3/uL (0.0-0.2) Sodium Level 140 mmol/L (136-145) Potassium Level 5.1 mmol/L (3.5-5.1) Chloride Level 106 mmol/L (98-107) Carbon Dioxide Level 22 mmol/L (21-32) Anion Gap 12 (6-14) Blood Urea Nitrogen 45 mg/dL (7-20) Creatinine 5.8 mg/dL (0.6-1.0) Estimated GFR (Cockcroft-Gault) 7.2 BUN/Creatinine Ratio 8 (6-20) Glucose Level 198 mg/dL (70-99) Calcium Level 6.5 mg/dL (8.5-10.1) Total Bilirubin 0.1 mg/dL (0.2-1.0) Aspartate Amino Transf (AST/SGOT) 14 U/L (15-37) Alanine Aminotransferase (ALT/SGPT) 7 U/L (14-59) Alkaline Phosphatase 116 U/L (46-116) Total Protein 6.2 g/dL (6.4-8.2) Albumin 2.2 g/dL (3.4-5.0) Albumin/Globulin Ratio 0.6 (1.0-1.7) Assessment Assessment 1. Acute renal failure with chronic kidney disease stage 3 secondary to obstructive uropathy. The patient had a left ureteral stent that was changed in July, but since then she has not followed with the urologist. I have discussed with Dr. Lozano, and they will replace a stent tomorrow. The patient is putting out good pale yellow urine last night. Her output was 800 mL. Her baseline creatinine is 1.4-2. 2. The patient has acute hypertensive crisis that is improving. 3. Chronic obstructive pulmonary disease. 4. Systolic congestive heart failure with ejection fraction of 30%. 5. Left hydronephrosis, severe. 6. Right atrophic kidney. 7. Anemia, B12 deficiency. 8. Diverticulosis. 9. History of left-sided ischemic colitis. 10. Diverticulosis. 11. Chronic obstructive pulmonary disease. 12. Peripheral vascular disease with history of multiple stents. 13. Right upper lobe nodule 1.5 cm. 14. Hyperlipidemia. 15. Moderate aortic regurgitation. 16. Pulmonary hypertension. 17. Chronic hypomagnesemia. 18. Hypothyroidism. PLAN: Continue IV fluids, hold lisinopril and also hold potassium chloride today. Consult for urology evaluation and management and Dr. Jacome for nephrology evaluation and management. We will recheck labs in a.m. For details, please refer to the orders. Condition and treatment options discussed with the patient. Accelerated hypertension- systolic blood pressure was 202 this morning and she was only given 1 dose of beta lópez prior to surgery. I'll order hydralazine 10 mg IV every 4 hours when necessary for systolic blood pressure over 160. Continue when necessary clonidine and other medications. Acute renal failure with chronic kidney disease. Creatinine is slightly better. Plan Plan For more details regarding further plans, please refer to the orders. PARIS CASTILLO MD Jan 10, 2019 11:25
--- NOTE | 2019-01-10 12:01 | PDOC ---
Renal-Progress Notes Subjective Notes Notes FEELS SWOLLEN, WT GAIN History of Present Illness Hx of present illness BETTER Vitals Vitals Vital Signs Date Time Temp Pulse Resp B/P (MAP) Pulse Ox O2 Delivery O2 Flow Rate FiO2 01/10/19 08:37 61 146/64 01/10/19 07:00 99.3 18 94 Room Air 99.3 01/09/19 11:15 2.0 Weight Weight [ ] I.O. Intake and Output Intake and Output 01/10/19 07:00 Intake Total 900 ml Output Total 1355 ml Balance -455 ml Intake Oral 450 ml IV Total 450 ml Output Urine Total 1350 ml Estimated Blood Loss 5 ml Labs Labs Laboratory Tests Test 01/10/19 03:30 White Blood Count 7.8 x10^3/uL (4.0-11.0) Red Blood Count 3.24 x10^6/uL (3.50-5.40) Hemoglobin 9.5 g/dL (12.0-15.5) Hematocrit 29.1 % (36.0-47.0) Mean Corpuscular Volume 90 fL (79-100) Mean Corpuscular Hemoglobin 30 pg (25-35) Mean Corpuscular Hemoglobin Concent 33 g/dL (31-37) Red Cell Distribution Width 13.9 % (11.5-14.5) Platelet Count 256 x10^3/uL (140-400) Neutrophils (%) (Auto) 91 % (31-73) Lymphocytes (%) (Auto) 8 % (24-48) Monocytes (%) (Auto) 1 % (0-9) Eosinophils (%) (Auto) 0 % (0-3) Basophils (%) (Auto) 0 % (0-3) Neutrophils # (Auto) 7.1 x10^3uL (1.8-7.7) Lymphocytes # (Auto) 0.6 x10^3/uL (1.0-4.8) Monocytes # (Auto) 0.1 x10^3/uL (0.0-1.1) Eosinophils # (Auto) 0.0 x10^3/uL (0.0-0.7) Basophils # (Auto) 0.0 x10^3/uL (0.0-0.2) Sodium Level 140 mmol/L (136-145) Potassium Level 5.1 mmol/L (3.5-5.1) Chloride Level 106 mmol/L (98-107) Carbon Dioxide Level 22 mmol/L (21-32) Anion Gap 12 (6-14) Blood Urea Nitrogen 45 mg/dL (7-20) Creatinine 5.8 mg/dL (0.6-1.0) Estimated GFR (Cockcroft-Gault) 7.2 BUN/Creatinine Ratio 8 (6-20) Glucose Level 198 mg/dL (70-99) Calcium Level 6.5 mg/dL (8.5-10.1) Total Bilirubin 0.1 mg/dL (0.2-1.0) Aspartate Amino Transf (AST/SGOT) 14 U/L (15-37) Alanine Aminotransferase (ALT/SGPT) 7 U/L (14-59) Alkaline Phosphatase 116 U/L (46-116) Total Protein 6.2 g/dL (6.4-8.2) Albumin 2.2 g/dL (3.4-5.0) Albumin/Globulin Ratio 0.6 (1.0-1.7) Micro Micro Microbiology 01/07/19 Urine Culture - Preliminary, Resulted 01/07/19 Urine Culture Result 1 (SCOTT) - Preliminary, Resulted Review of Systems Constitutional: yes: alert, oriented Ears/Nose/Throat: Yes: no symptom reported Eyes: Yes: no symptom reported Pulmonary: Yes no symptom reported Cardiovascular: Yes no symptom reported Gastrointestional: Yes: no symptom reported Genitourinary: Yes: no symptom reported Musculoskeletal: Yes: no symptom reported Skin: Yes no symptom reported Psychiatric/Neurological: Yes: no symptom reported Endocrine: Yes: no symptom reported Physical Exam General Appearance: no apparent distress Skin: warm Heart: S1S2 Abdomen: soft, bowel sounds present Genitourinary: bladder flat Extremities: pulses present Neurology: alert, oriented Musculoskeletal: No pain Assessment Assessment IMP ALESSIA BETTER WITH CR OF 5.8 SEVERE LEFT HYDRONEPHROSIS HX OF LEFT URETERAL STENT CKD STAGE 3 WITH CR OF 1.4-2.0 AT BASELINE NON FUNCTIONING ATROPHIED RIGHT KIDNEY HX OF CM WITH EF OF 30%-COMPENSATED HD OF HTN PLAN DECREASE IVF RATE ANTIBIOTICS AVOID NEPHROTOXINS URETERAL STENT DONE MAINTAIN BEDOYA CONT ARANESP LABS IN AM D/W ATTENDING ALFREDITO JOHNSON MD Jan 10, 2019 12:01
--- NOTE | 2019-01-10 13:38 | NUR ---
SW following. Discussed with RN, pt is from home with . PT/OT recommending home with assistance. RN advised no SW needs at this time. SW will continue to follow.
[2019-01-10 15:00] VITALS: BP 136/54
[2019-01-10] MEDS: cefTRIAXone IV Push 1 GM VIAL. IVP SCH (15:32)
[2019-01-10 19:00] VITALS: BP 129/56
[2019-01-10] MEDS: ATORVASTATIN CALCIUM 20 MG TABLET PO SCH (22:23)
[2019-01-10] MEDS: LACTOBACILLUS RHAMNOSUS GG 1 CAPSULE. PO SCH (22:23)
[2019-01-10 23:00] VITALS: BP 133/63
[2019-01-11 03:00] VITALS: BP 135/72
[2019-01-11] MEDS: LEVOTHYROXINE 75 MCG TABLET PO SCH (05:45)
[2019-01-11] MEDS: PANTOPRAZOLE 40 MG TABLET.DR. PO SCH (05:45)
[2019-01-11] MEDS: IV NORMAL SALINE 1000ML BAG 1,000 ML IV SCH ×2 (05:46→20:55)
[2019-01-11 07:00] VITALS: BP 148/63
[2019-01-11 07:37] LABS: CALCIUM 6.2 mg/dL (8.5-10.1); CREATININE 4.8 mg/dL (0.6-1.0); GFR 8.9; MAGNESIUM 1.6 mg/dL (1.8-2.4); PHOSPHORUS 3.5 mg/dL (2.6-4.7); POTASSIUM 4.9 mmol/L (3.5-5.1)
[2019-01-11] MEDS: MAGNESIUM OXIDE 400 MG TABLET PO SCH ×3 (07:44→20:54)
[2019-01-11] MEDS: LACTOBACILLUS RHAMNOSUS GG 1 CAPSULE. PO SCH ×2 (07:44→20:54)
[2019-01-11] MEDS: amLODIPine BESYLATE 10 MG TABLET PO SCH (07:44)
[2019-01-11] MEDS: CYANOCOBALAMIN (VITAMIN B-12) 1,000 MCG TABLET. PO SCH (07:45)
[2019-01-11] MEDS: ATENOLOL 25 MG TABLET. PO SCH (07:45)
[2019-01-11] MEDS: ASPIRIN CHEWABLE 81 MG TABLET. PO SCH (07:54)
--- NOTE | 2019-01-11 09:33 | NUR ---
SW following. Discussed with RN, no PT/OT needs. Pt has a whitley still so RN not sure of discharge plan, possible discharge tomorrow (01/12/19). SW will continue to follow.
--- NOTE | 2019-01-11 09:38 | PDOC ---
PROSPER MORALES YIELD ANALYST 01/11/19 0938: SUBJECTIVE Subjective Patient doing ok today, no abd or flank pain. OBJECTIVE Objective Physical Exam: General appearance: Alert and Oriented Head: Normocephalic, without obvious abnormality Eyes: conjunctivae/corneas clear. PERRL, EOM's intact. Fundi benign Back: + CVA pain bilaterally Lungs: Regular respirations, non labored breathing. Abdomen: soft, non-tender. No masses, no organomegaly Pelvic: + Blair catheter in place draining clear yellow urine with occ white sediment. Device in good working order Vital Signs Vital Signs Date Time Temp Pulse Resp B/P (MAP) Pulse Ox O2 Delivery O2 Flow Rate FiO2 01/11/19 08:00 Room Air 01/11/19 07:45 62 148/63 01/11/19 07:44 62 148/63 01/11/19 07:00 98.4 62 18 148/63 (91) 94 Room Air 98.4 01/11/19 03:00 98.5 67 18 135/72 (93) 93 Room Air 98.5 01/10/19 23:00 98.5 63 18 133/63 (86) 90 Room Air 98.5 01/10/19 20:00 Room Air 01/10/19 19:00 98.0 67 18 129/56 (80) 91 Room Air 98.0 01/10/19 15:00 98.2 62 18 136/54 (81) 93 Room Air 98.2 01/10/19 11:00 97.5 65 17 121/55 (77) 96 Room Air 97.5 I & O Intake and Output 01/11/19 07:00 Intake Total 625 ml Output Total 2100 ml Balance -1475 ml Intake Oral 625 ml Output Urine Total 2100 ml # Voids 1 PHYSICAL EXAM Physical Exam Physical Exam: General appearance: Alert and Oriented Head: Normocephalic, without obvious abnormality Eyes: conjunctivae/corneas clear. PERRL, EOM's intact. Fundi benign Back: + CVA pain bilaterally Lungs: Regular respirations, non labored breathing. Abdomen: soft, non-tender. No masses, no organomegaly Pelvic: + Blair catheter in place draining clear yellow urine with occ white sediment. Device in good working order ASSESSMENT/PLAN Assessment/Plan Discussed with patient importance of maintaining Blair catheter to achieve max drainage for kidneys. 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 Renal US ordered for today to check on hydro progress. If she does go home this weekend, recommend she go home with Blair in place. A Follow up appointment has been secured for her with Dr. Bryson of [facility] [place] on at 250 pm. Appointment card and new patient paperwork given to patient. Problems: (1) Ureteral obstruction COMMENT Lab Laboratory Tests Test 01/11/19 06:47 Sodium Level 143 mmol/L (136-145) Potassium Level 4.9 mmol/L (3.5-5.1) Chloride Level 109 mmol/L (98-107) Carbon Dioxide Level 24 mmol/L (21-32) Anion Gap 10 (6-14) Blood Urea Nitrogen 41 mg/dL (7-20) Creatinine 4.8 mg/dL (0.6-1.0) Estimated GFR (Cockcroft-Gault) 8.9 Glucose Level 87 mg/dL (70-99) Calcium Level 6.2 mg/dL (8.5-10.1) Phosphorus Level 3.5 mg/dL (2.6-4.7) Magnesium Level 1.6 mg/dL (1.8-2.4) ROC MASON MD 01/11/19 2211: ASSESSMENT/PLAN Assessment/Plan agree w above Problem Qualifiers (1) Ureteral obstruction: Laterality: left Qualified Codes: N13.5 - Crossing vessel and stricture of ureter without hydronephrosis PROSPER MORALES APRN Jan 11, 2019 09:38 ROC MASON MD Jan 11, 2019 22:11
--- NOTE | 2019-01-11 10:17 | PDOC ---
IM PROGRESS NOTES- Subjective Subjective No pain,dyspnea. Objective Vitals Vital Signs Date Time Temp Pulse Resp B/P (MAP) Pulse Ox O2 Delivery O2 Flow Rate FiO2 01/11/19 08:00 Room Air 01/11/19 07:45 62 148/63 01/11/19 07:00 98.4 18 94 98.4 Input & Output Intake and Output 01/11/19 07:00 Intake Total 625 ml Output Total 2100 ml Balance -1475 ml Intake Oral 625 ml Output Urine Total 2100 ml # Voids 1 Physical Exam Physical Exam General appearance -sedated in the recovery room. Mental Status -sedated Head - normal Chest -decreased breath sounds at bases Heart - S1 and S2 normal Abdomen - soft Musculoskeletal - no muscular tenderness noted Extremities - no pedal edema Skin - warm and dry Labs Laboratory Tests Test 01/10/19 03:30 01/11/19 06:47 White Blood Count 7.8 x10^3/uL (4.0-11.0) Red Blood Count 3.24 x10^6/uL (3.50-5.40) Hemoglobin 9.5 g/dL (12.0-15.5) Hematocrit 29.1 % (36.0-47.0) Mean Corpuscular Volume 90 fL (79-100) Mean Corpuscular Hemoglobin 30 pg (25-35) Mean Corpuscular Hemoglobin Concent 33 g/dL (31-37) Red Cell Distribution Width 13.9 % (11.5-14.5) Platelet Count 256 x10^3/uL (140-400) Neutrophils (%) (Auto) 91 % (31-73) Lymphocytes (%) (Auto) 8 % (24-48) Monocytes (%) (Auto) 1 % (0-9) Eosinophils (%) (Auto) 0 % (0-3) Basophils (%) (Auto) 0 % (0-3) Neutrophils # (Auto) 7.1 x10^3uL (1.8-7.7) Lymphocytes # (Auto) 0.6 x10^3/uL (1.0-4.8) Monocytes # (Auto) 0.1 x10^3/uL (0.0-1.1) Eosinophils # (Auto) 0.0 x10^3/uL (0.0-0.7) Basophils # (Auto) 0.0 x10^3/uL (0.0-0.2) Sodium Level 140 mmol/L (136-145) 143 mmol/L (136-145) Potassium Level 5.1 mmol/L (3.5-5.1) 4.9 mmol/L (3.5-5.1) Chloride Level 106 mmol/L (98-107) 109 mmol/L (98-107) Carbon Dioxide Level 22 mmol/L (21-32) 24 mmol/L (21-32) Anion Gap 12 (6-14) 10 (6-14) Blood Urea Nitrogen 45 mg/dL (7-20) 41 mg/dL (7-20) Creatinine 5.8 mg/dL (0.6-1.0) 4.8 mg/dL (0.6-1.0) Estimated GFR (Cockcroft-Gault) 7.2 8.9 BUN/Creatinine Ratio 8 (6-20) Glucose Level 198 mg/dL (70-99) 87 mg/dL (70-99) Calcium Level 6.5 mg/dL (8.5-10.1) 6.2 mg/dL (8.5-10.1) Total Bilirubin 0.1 mg/dL (0.2-1.0) Aspartate Amino Transf (AST/SGOT) 14 U/L (15-37) Alanine Aminotransferase (ALT/SGPT) 7 U/L (14-59) Alkaline Phosphatase 116 U/L (46-116) Total Protein 6.2 g/dL (6.4-8.2) Albumin 2.2 g/dL (3.4-5.0) Albumin/Globulin Ratio 0.6 (1.0-1.7) Phosphorus Level 3.5 mg/dL (2.6-4.7) Magnesium Level 1.6 mg/dL (1.8-2.4) Laboratory Tests Test 01/11/19 06:47 Sodium Level 143 mmol/L (136-145) Potassium Level 4.9 mmol/L (3.5-5.1) Chloride Level 109 mmol/L (98-107) Carbon Dioxide Level 24 mmol/L (21-32) Anion Gap 10 (6-14) Blood Urea Nitrogen 41 mg/dL (7-20) Creatinine 4.8 mg/dL (0.6-1.0) Estimated GFR (Cockcroft-Gault) 8.9 Glucose Level 87 mg/dL (70-99) Calcium Level 6.2 mg/dL (8.5-10.1) Phosphorus Level 3.5 mg/dL (2.6-4.7) Magnesium Level 1.6 mg/dL (1.8-2.4) Meds Current Medications Lactobacillus Rhamnosus (Culturelle) 1 cap BID PO Last administered on at 07:44; Start 01/10/19 at 21:00 Assessment Assessment 1. Acute renal failure with chronic kidney disease stage 3 secondary to obstructive uropathy. The patient had a left ureteral stent that was changed in July, but since then she has not followed with the urologist. I have discussed with Dr. Lozano, and they will replace a stent tomorrow. The patient is putting out good pale yellow urine last night. Her output was 800 mL. Her baseline creatinine is 1.4-2. 2. The patient has acute hypertensive crisis that is improving. 3. Chronic obstructive pulmonary disease. 4. Systolic congestive heart failure with ejection fraction of 30%. 5. Left hydronephrosis, severe. 6. Right atrophic kidney. 7. Anemia, B12 deficiency. 8. Diverticulosis. 9. History of left-sided ischemic colitis. 10. Diverticulosis. 11. Chronic obstructive pulmonary disease. 12. Peripheral vascular disease with history of multiple stents. 13. Right upper lobe nodule 1.5 cm. 14. Hyperlipidemia. 15. Moderate aortic regurgitation. 16. Pulmonary hypertension. 17. Chronic hypomagnesemia. 18. Hypothyroidism. PLAN: Continue IV fluids, hold lisinopril and also hold potassium chloride today. Consult for urology evaluation and management and Dr. Jacome for nephrology evaluation and management. We will recheck labs in a.m. For details, please refer to the orders. Condition and treatment options discussed with the patient. Accelerated hypertension- systolic blood pressure improving. Acute renal failure with chronic kidney disease. Creatinine is 4.8. Plan Plan For more details regarding further plans, please refer to the orders. PARIS CASTILLO MD Jan 11, 2019 10:17
[2019-01-11 11:00] VITALS: BP 139/52
--- NOTE | 2019-01-11 11:46 | PDOC ---
Renal-Progress Notes Subjective Notes Notes NO NEW COMPLAINTS History of Present Illness Hx of present illness BETTER Vitals Vitals Vital Signs Date Time Temp Pulse Resp B/P (MAP) Pulse Ox O2 Delivery O2 Flow Rate FiO2 01/11/19 11:00 97.7 61 18 139/52 (81) 94 Room Air 97.7 Weight Weight [ ] I.O. Intake and Output Intake and Output 01/11/19 06:59 Intake Total 625 ml Output Total 2100 ml Balance -1475 ml Intake Oral 625 ml Output Urine Total 2100 ml # Voids 1 Labs Labs Laboratory Tests Test 01/11/19 06:47 Sodium Level 143 mmol/L (136-145) Potassium Level 4.9 mmol/L (3.5-5.1) Chloride Level 109 mmol/L (98-107) Carbon Dioxide Level 24 mmol/L (21-32) Anion Gap 10 (6-14) Blood Urea Nitrogen 41 mg/dL (7-20) Creatinine 4.8 mg/dL (0.6-1.0) Estimated GFR (Cockcroft-Gault) 8.9 Glucose Level 87 mg/dL (70-99) Calcium Level 6.2 mg/dL (8.5-10.1) Phosphorus Level 3.5 mg/dL (2.6-4.7) Magnesium Level 1.6 mg/dL (1.8-2.4) Micro Micro Microbiology 01/07/19 Urine Culture - Preliminary, Resulted 01/07/19 Urine Culture Result 1 (SCOTT) - Preliminary, Resulted Review of Systems Constitutional: yes: alert, oriented Ears/Nose/Throat: Yes: no symptom reported Eyes: Yes: no symptom reported Pulmonary: Yes no symptom reported Cardiovascular: Yes no symptom reported Gastrointestional: Yes: no symptom reported Genitourinary: Yes: no symptom reported Musculoskeletal: Yes: no symptom reported Skin: Yes no symptom reported Psychiatric/Neurological: Yes: no symptom reported Endocrine: Yes: no symptom reported Physical Exam General Appearance: no apparent distress Skin: warm Heart: S1S2 Abdomen: soft, bowel sounds present Genitourinary: bladder flat Extremities: pulses present Neurology: alert, oriented Musculoskeletal: No pain Assessment Assessment IMP ALESSIA BETTER WITH CR OF 4.8 SEVERE LEFT HYDRONEPHROSIS HX OF LEFT URETERAL STENT CKD STAGE 3 WITH CR OF 1.4-2.0 AT BASELINE NON FUNCTIONING ATROPHIED RIGHT KIDNEY HX OF CM WITH EF OF 30%-COMPENSATED HD OF HTN PLAN DECREASE IVF RATE ANTIBIOTICS AVOID NEPHROTOXINS URETERAL STENT DONE MAINTAIN BEDOYA CONT ARANESP LABS IN AM D/W ATTENDING PROB HOME TOMORROW F/U IN OFFICE ONCE DISCHARGED ALFREDITO JOHNSON MD Jan 11, 2019 11:46
[2019-01-11] MEDS ORDERED: MAGNESIUM SULFATE 2GM 50 ML IV ONE (12:00)
--- NOTE | 2019-01-11 12:51 | RAD ---
Examination: Ultrasound kidneys HISTORY: History of hydronephrosis COMPARISON: CT from 01/07/2019. Findings: The right kidney measuring 6.6 x 2.4 x 2.4 cm. The right kidney appears echogenic and atrophic. 6 mm probable cyst identified in the right kidney. The left kidney measures 10.2 x 4.9 x 4.7 cm. Mild left-sided hydronephrosis identified. There is a stent identified in the left renal pelvis. The left proximal ureteral wall appears mildly thickened. Urinary bladder is empty due to Blair catheter balloon. IMPRESSION: 1. Atrophic appearing right kidney. 2. Left-sided ureteral stent identified with mild left-sided hydronephrosis. There is mild thickened appearance of the proximal left ureter wall, nonspecific. 3. 6 mm probable cyst right kidney. Electronically signed by: Abundio Rapp MD (01/11/2019 12:48 PM) [id number]
[2019-01-11 15:00] VITALS: BP 136/51
[2019-01-11] MEDS: cefTRIAXone IV Push 1 GM VIAL. IVP SCH (17:50)
[2019-01-11 19:50] VITALS: BP 142/63
[2019-01-11] MEDS: ATORVASTATIN CALCIUM 20 MG TABLET PO SCH (20:54)
[2019-01-11 23:59] VITALS: BP 125/68
[2019-01-12 03:59] VITALS: BP 174/75
[2019-01-12 05:11] LABS: CALCIUM 6.5 mg/dL (8.5-10.1); CREATININE 3.9 mg/dL (0.6-1.0); GFR 11.3; POTASSIUM 4.4 mmol/L (3.5-5.1)
[2019-01-12] MEDS: PANTOPRAZOLE 40 MG TABLET.DR. PO SCH (05:23)
[2019-01-12] MEDS: LEVOTHYROXINE 75 MCG TABLET PO SCH (05:23)
[2019-01-12 07:00] VITALS: BP 160/71
[2019-01-12] MEDS ORDERED: CEFDINIR 300 MG CAPSULE PO SCH (09:00)
[2019-01-12] MEDS: amLODIPine BESYLATE 10 MG TABLET PO SCH (09:10)
[2019-01-12] MEDS: ATENOLOL 25 MG TABLET. PO SCH (09:10)
[2019-01-12] MEDS: LACTOBACILLUS RHAMNOSUS GG 1 CAPSULE. PO SCH (09:11)
[2019-01-12] MEDS: ASPIRIN CHEWABLE 81 MG TABLET. PO SCH (09:12)
[2019-01-12] MEDS: CYANOCOBALAMIN (VITAMIN B-12) 1,000 MCG TABLET. PO SCH (09:12)
[2019-01-12] MEDS: MAGNESIUM OXIDE 400 MG TABLET PO SCH ×2 (09:13→14:28)
[2019-01-12] MEDS ORDERED: HYDR-2868 PO (09:15)
[2019-01-12] MEDS ORDERED: CEFD300C PO (09:15)
--- NOTE | 2019-01-12 09:21 | DISCH ---
DISCHARGE WITH HOME HEALTH DISCHARGE INFORMATION: Final Diagnosis: Problems Medical Problems: (1) Pyelonephritis Status: Acute (2) Ureteral obstruction Status: Acute (3) UTI (urinary tract infection) Status: Acute Condition on Discharge: Stable HOME HEALTH: Face to Face: I certify this patient is under my care and that I, or a nurse practitioner or physician's radiology physician assistant working with me, had a face to face encounter that meets the physician face to face encounter requirements with this patient on 01/12/19. Medical Complications: HTN, Other (Acute renal failure) RN For Eval/Treatment: Yes Pt Meets Homebound Status: Other: (NEw Blair catheter) POST DISCHARGE ORDERS: Weight Bearing Status after Di: No restrictions DIET AFTER DISCHARGE: Cardiac CHECKS AFTER DISCHARGE: Checks after discharge: Check blood press - daily Comment: Blair catheter care FOLLOW-UP: PCP to follow Home Health: yes Follow up with: Dr. PARIS Henderson on Monday in 4 days. Follow Up With: Dr. Bryson, Dr. Jacome TREATMENT/EQUIPMENT ORDERS: Adaptive Equipment Issued: Abel CERTIFICATION STATEMENT: Certification Statement: Certification Statement: Based on the above finding, I certify that this patient is confined to the home and needs intermittent fpc care, physical therapy and/or speech therapy, or continues to need occupational therapy.~ This patient is under my care, and I have initiated the establishment of the plan of care.~ This patient will be followed by myself or a community physician who will periodically review the plan of care. Home Meds Active Scripts Methylprednisolone (MEDROL) 4 Mg Tab.ds.pk, 1 PKG PO UD for rash, #1 PKG Prov:LUIS MCKINNON ELECTRIC SCOOP OPERATOR 11/01/18 Hydrocodone/Apap 5-325 (NORCO 5-325 TABLET) 1 Each Tablet, 1 TAB PO PRN Q6HRS PRN for PAIN, #20 TAB Prov:RUTH NUÑEZ ELECTRIC SCOOP OPERATOR 06/17/16 Reported Medications Pantoprazole Sodium (PROTONIX) 40 Mg Tablet.dr, 40 MG PO DAILY, TAB 08/11/16 Atorvastatin Calcium (ATORVASTATIN CALCIUM) 20 Mg Tablet, 20 MG PO HS for FOR CHOLESTEROL, #30 TAB 0 Refills 08/11/16 Aspirin (ASPIRIN) 81 Mg Tab.chew, 1 TAB PO DAILY, #30 TAB 3 Refills 03/05/15 Potassium Chloride (KLOR-CON 10) 10 Meq Tablet.er, 1 TAB PO BID, #30 TAB 5 Refills 12/22/14 Magnesium Oxide (MAGNESIUM) 400 Mg Capsule, 1 CAP PO TID, #180 CAP 3 Refills 12/22/14 Amlodipine Besylate (AMLODIPINE BESYLATE) 10 Mg Tablet, 1 TAB PO DAILY, #30 TAB 5 Refills 12/22/14 Cyanocobalamin (Vitamin B-12) (VITAMIN B-12) 1,000 Mcg Tablet, 1 TAB PO DAILY, # 30 TAB 2 Refills 12/17/14 Atenolol (ATENOLOL) 25 Mg Tablet, 1 TAB PO DAILY, #30 TAB 5 Refills 12/16/14 Levothyroxine Sodium (LEVOTHYROXINE SODIUM) 75 Mcg Tablet, 1 TAB PO DAILY, #30 TAB 5 Refills 12/16/14 Lisinopril (LISINOPRIL) 40 Mg Tablet, 40 MG PO BID 12/28/13 PARIS HENDERSON MD Jan 12, 2019 09:21
[2019-01-12] MEDS: IV NORMAL SALINE 1000ML BAG 1,000 ML IV SCH (09:55)
--- NOTE | 2019-01-12 10:14 | PDOC3 ---
IM DISCHARGE SUMMARY Date of Admission Date of Admission Date of Admission: Jan 07, 2019 at 17:01 Date of Discharge Date of Discharge January 12, 2019 Primary Diagnosis Primary Diagnosis 1. Acute renal failure with chronic kidney disease stage 3 secondary to obstructive uropathy. The patient had a left ureteral stent that was changed in July, but since then she has not followed with the urologist. I have discussed with , and they will replace a stent tomorrow. The patient is putting out good pale yellow urine last night. Her output was 800 mL. Her baseline creatinine is 1.4-2. 2. The patient has acute hypertensive crisis that is improving. 3. Chronic obstructive pulmonary disease. 4. Systolic congestive heart failure with ejection fraction of 30%. 5. Left hydronephrosis, severe. 6. Right atrophic kidney. 7. Anemia, B12 deficiency. 8. Diverticulosis. 9. History of left-sided ischemic colitis. 10. Diverticulosis. 11. Chronic obstructive pulmonary disease. 12. Peripheral vascular disease with history of multiple stents. 13. Right upper lobe nodule 1.5 cm. 14. Hyperlipidemia. 15. Moderate aortic regurgitation. 16. Pulmonary hypertension. 17. Chronic hypomagnesemia. 18. Hypothyroidism. Consults Consults Tresa Flores MD, Dr. Newby, Dr. Jacome Labs Labs Laboratory Tests Test 01/10/19 03:30 01/11/19 06:47 01/12/19 03:30 White Blood Count 7.8 x10^3/uL (4.0-11.0) Red Blood Count 3.24 x10^6/uL (3.50-5.40) Hemoglobin 9.5 g/dL (12.0-15.5) Hematocrit 29.1 % (36.0-47.0) Mean Corpuscular Volume 90 fL (79-100) Mean Corpuscular Hemoglobin 30 pg (25-35) Mean Corpuscular Hemoglobin Concent 33 g/dL (31-37) Red Cell Distribution Width 13.9 % (11.5-14.5) Platelet Count 256 x10^3/uL (140-400) Neutrophils (%) (Auto) 91 % (31-73) Lymphocytes (%) (Auto) 8 % (24-48) Monocytes (%) (Auto) 1 % (0-9) Eosinophils (%) (Auto) 0 % (0-3) Basophils (%) (Auto) 0 % (0-3) Neutrophils # (Auto) 7.1 x10^3uL (1.8-7.7) Lymphocytes # (Auto) 0.6 x10^3/uL (1.0-4.8) Monocytes # (Auto) 0.1 x10^3/uL (0.0-1.1) Eosinophils # (Auto) 0.0 x10^3/uL (0.0-0.7) Basophils # (Auto) 0.0 x10^3/uL (0.0-0.2) Sodium Level 140 mmol/L (136-145) 143 mmol/L (136-145) 142 mmol/L (136-145) Potassium Level 5.1 mmol/L (3.5-5.1) 4.9 mmol/L (3.5-5.1) 4.4 mmol/L (3.5-5.1) Chloride Level 106 mmol/L (98-107) 109 mmol/L (98-107) 106 mmol/L (98-107) Carbon Dioxide Level 22 mmol/L (21-32) 24 mmol/L (21-32) 23 mmol/L (21-32) Anion Gap 12 (6-14) 10 (6-14) 13 (6-14) Blood Urea Nitrogen 45 mg/dL (7-20) 41 mg/dL (7-20) 35 mg/dL (7-20) Creatinine 5.8 mg/dL (0.6-1.0) 4.8 mg/dL (0.6-1.0) 3.9 mg/dL (0.6-1.0) Estimated GFR (Cockcroft-Gault) 7.2 8.9 11.3 BUN/Creatinine Ratio 8 (6-20) Glucose Level 198 mg/dL (70-99) 87 mg/dL (70-99) 77 mg/dL (70-99) Calcium Level 6.5 mg/dL (8.5-10.1) 6.2 mg/dL (8.5-10.1) 6.5 mg/dL (8.5-10.1) Total Bilirubin 0.1 mg/dL (0.2-1.0) Aspartate Amino Transf (AST/SGOT) 14 U/L (15-37) Alanine Aminotransferase (ALT/SGPT) 7 U/L (14-59) Alkaline Phosphatase 116 U/L (46-116) Total Protein 6.2 g/dL (6.4-8.2) Albumin 2.2 g/dL (3.4-5.0) Albumin/Globulin Ratio 0.6 (1.0-1.7) Phosphorus Level 3.5 mg/dL (2.6-4.7) Magnesium Level 1.6 mg/dL (1.8-2.4) 2.4 mg/dL (1.8-2.4) Brief hospital course Brief hospital course This 73-year-old female started having pain in the left flank 3-4 days ago. The pain continued to gradually get worse. She has had some nausea, but no vomiting. She denied any fevers, chills, diarrhea, but because the pain continued to increase in severity, she came to the Emergency Room. In the Emergency Room, the patient was noted to have an obstructive uropathy with severe left hydronephrosis and dilatation of the proximal ureter despite stenting the ureter. There is also a left renal swelling and perinephric stranding and could be postobstructive or due to pyelonephritis on the CT of the abdomen and pelvis. The patient also has a small atrophic right kidney since 2008 and also had mild right hydronephrosis without definite obstructing calculus. The patient also had chronic calcifications of the pancreas, cholelithiasis and mild rectosigmoid wall thickening and lumbar spondylosis with stenosis on CT scan. The patient's creatinine was noted to be 7.1, her baseline is 1.4-2. For more details regarding the past history, family history, social history, surgical history and other details, please refer to History and Physical. Continue IV fluids, hold lisinopril and also hold potassium chloride today. Consult for urology evaluation and management and Dr. Jacome for nephrology evaluation and management. Ureteral obstruction- stent was changed during the stay in the hospital. A Blair catheter was placed and patient is draining well. Accelerated hypertension- systolic blood pressure was 202 this morning and she was only given 1 dose of beta lópez prior to surgery. I'll order hydralazine 10 mg IV every 4 hours when necessary for systolic blood pressure over 160. Continue when necessary clonidine and other medications. Blood pressure is still elevated but much better. She is not on Lasix and lisinopril that she was on home prior to admission. We will continue to hold it but I will add hydralazine 25 mg by mouth 3 times a day. Acute renal failure with chronic kidney disease. Creatinine is decreased to 3.8 from 7.1 on admission. His cast with Dr. Jacome yesterday and it is okay to discharge the patient home today with Blair catheter. Condition at the time of discharge is much better. Follow-up in the office in 4 days on Monday. Patient will follow-up with Dr. Bryson on 22 December. She will also need to follow-up with Dr. Jacome. Discharge home with home health services and Blair catheter. Continue cefdinir 300 mg twice a day for 5 days. She was initially treated with Rocephin. Medications Medications reviewed and reconciled for discharge. Allergy Allergies Coded Allergies Type Severity Reaction Last Updated Verified acetaminophen Allergy Intermediate 11/01/18 No codeine Allergy Intermediate hives 12/15/14 Yes ezetimibe Allergy Intermediate Rash 03/06/15 Yes hydrocodone Allergy Intermediate 01/10/19 Yes Follow up in 5 days. DISPOSITION: Home health services Comments Discharge Management - 35 minutes. For other details please refer to discharge instructions PARIS CASTILLO MD Jan 12, 2019 10:14
[2019-01-12 11:00] VITALS: BP 161/65
--- NOTE | 2019-01-12 11:52 | NUR ---
FACULTY CO-SIGN I have reviewed the documentation by Gina Pozo hospital nursing assistant, [facility]: Addendum: 01/12/19 at 1153 by ANGELIQUE ROSENTHAL RN Amended: Links added. Addendum: 01/12/19 at 1159 by ANGELIQUE ROSENTHAL RN Documentation on client was completed by Amelie Gongora and not Gina Pozo.
--- NOTE | 2019-01-12 13:00 | NUR ---
This nurse paged MD about concerns with bruising in arm, with pain, orders received, this nurse will continue to monitor.
--- NOTE | 2019-01-12 13:52 | NUR ---
This nurse called results of doppler scan to MD, orders received, discussed with Pharmacy, reported back to MD. New orders received, this nurse will continue to monitor, ok to d/c after first dose of Eliquis.
[2019-01-12] MEDS ORDERED: APIXABAN 5 MG TABLET. PO SCH (14:15)
--- NOTE | 2019-01-12 14:35 | RAD ---
VENOUS UPPER EXTREMITY LEFT History: Left upper extremity bruising and pain in the biceps region Comparison: None. Findings: Multiple grayscale, color, duplex spectral analysis waveform images of the left upper extremity veins are submitted. There is abnormal nonocclusive echogenicity in one of the left brachial veins, indicated as being at level of the mid to distal biceps. Remainder of interrogated left upper extremity veins are patent with normal phasicity and color-flow. Impression: 1. There is nonocclusive thrombus in one of the brachial veins in the mid to distal biceps region. FOR INTERNAL CODING PURPOSES Critical result: Findings discussed with patient's nurse Lore at 01/12/2019 2:27 PM. RESULT CODE: (C) Electronically signed by: Virgilio Ramey MD (01/12/2019 2:33 PM) [facility]
--- NOTE | 2019-01-12 14:51 | NUR ---
This nurse called in a prescription for Eliquis 5mg BID for 1 week, one dose taken, education provided on medication, risks and s/s to notify MD. This nurse will continue to monitor.
--- NOTE | 2019-01-12 15:00 | NUR ---
This nurse went over discharge instructions with patient, family at bedside to take patient home, all belongings were collected and returned to the patient. Patient was escorted out via wheelchair by NIURKA Myers. This nurse will continue to monitor.
--- NOTE | 2019-01-16 16:15 | RAD ---
EXAM: Abdomen, 2 views. HISTORY: Left ureteral stent exchange. COMPARISON: None. FINDINGS: 2 fluoroscopic images were obtained during a left ureteral stent exchange. The images demonstrate portions of a known left nephroureteral stent. There is a left iliac stent. The total fluoroscopy time is not submitted with the images. IMPRESSION: Fluoroscopic imaging for procedural guidance during left ureteral stent exchange. Electronically signed by: Claudia Arceo MD (01/16/2019 4:12 PM) [place] [id number]
== END 2019-01-12 15:00 | disposition home health service (06) | DRG 659 ==
LOC: ER 15:13 → 4 NORTH 17:01
PROVIDERS: ADMIT Internal Medicine; ATTEND Internal Medicine
PROC: 0TP98DZ Removal of Intraluminal Device from Ureter, Via Natural or Artificial Opening Endoscopic (ICD-10-PCS; 2019-01-09)
PROC: 0T778DZ Dilation of Left Ureter with Intraluminal Device, Via Natural or Artificial Opening Endoscopic (ICD-10-PCS; principal; 2019-01-09 09:00)
DX: N13.6 Pyonephrosis (principal); E43 Unspecified severe protein-calorie malnutrition; I13.0 Hypertensive heart and chronic kidney disease with heart failure and stage 1 through stage 4 chronic kidney disease, or unspecified chronic kidney disease; I16.9 Hypertensive crisis, unspecified; I50.22 Chronic systolic (congestive) heart failure; J98.11 Atelectasis; I31.3 Pericardial effusion (noninflammatory); N17.9 Acute kidney failure, unspecified; K80.20 Calculus of gallbladder without cholecystitis without obstruction; D64.9 Anemia, unspecified; E03.9 Hypothyroidism, unspecified; E53.8 Deficiency of other specified B group vitamins; E78.5 Hyperlipidemia, unspecified; E83.42 Hypomagnesemia; I27.20 Pulmonary hypertension, unspecified; I35.1 Nonrheumatic aortic (valve) insufficiency; I73.9 Peripheral vascular disease, unspecified; J44.9 Chronic obstructive pulmonary disease, unspecified; K57.90 Diverticulosis of intestine, part unspecified, without perforation or abscess without bleeding; M47.816 Spondylosis without myelopathy or radiculopathy, lumbar region; N18.3 Chronic kidney disease, stage 3 (moderate); N26.1 Atrophy of kidney (terminal); Z79.899 Other long term (current) drug therapy; Z82.3 Family history of stroke; Z82.49 Family history of ischemic heart disease and other diseases of the circulatory system; Z87.891 Personal history of nicotine dependence; Z85.41 Personal history of malignant neoplasm of cervix uteri; Z88.8 Allergy status to other drugs, medicaments and biological substances; N28.9 Disorder of kidney and ureter, unspecified
CPT/HCPCS: 36415; 74176; 76000; 76770; 80048; 80053; 81001; 83690; 83735; 84100; 85025; 87086; 87186; 93971; A7015; C2617; J0171; J0360; J0696; J1100; J1885; J2001; J2405; J2704; J3010; J3475; J3490; J7030; 97116; 97530; 97535; 99285-25; C1769

== ENCOUNTER 2019-01-13 17:25 | Inpatient (IN) | payer MEDICARE ==
[~2019-01-13] VITALS: Ht 154.9 cm; Wt 45.4 kg
[~2019-01-13 17:25] MED LIST changes: +CEFD300C PO; +HYDR-2868 PO
[2019-01-13 18:47] LABS: CLARITY,URINE TURBID; COLOR,URINE RED; PROTEIN,URINE >=300 mg/dL (NEG-TRACE)
[2019-01-13 18:48] LABS: BASO # 0.1 x10^3/uL (0.0-0.2); BASO % 1 % (0-3); EOS # 0.2 x10^3/uL (0.0-0.7); EOS % 2 % (0-3); HEMATOCRIT 31.8 % (36.0-47.0); HEMOGLOBIN 10.1 g/dL (12.0-15.5); LYMPH % 18 % (24-48); MEAN CORPUSCULAR HEMOGLOBIN 28 pg (25-35); MEAN CORPUSCULAR HGB CONC 32 g/dL (31-37); MEAN CORPUSCULAR VOLUME 89 fL (79-100); MONO # 0.5 x10^3/uL (0.0-1.1); MONO % 5 % (0-9); NEUT # 8.1 x10^3uL (1.8-7.7); NEUT % 74 % (31-73); PLATELET COUNT 302 x10^3/uL (140-400); RED BLOOD COUNT 3.57 x10^6/uL (3.50-5.40); WHITE BLOOD COUNT 10.9 x10^3/uL (4.0-11.0)
[2019-01-13 18:54] LABS: CALCIUM 7.7 mg/dL (8.5-10.1); CREATININE 3.5 mg/dL (0.6-1.0); GFR 12.8; POTASSIUM 3.7 mmol/L (3.5-5.1)
[2019-01-13 18:56] LABS: RBC,URINE TNTC /HPF (0-2)
[2019-01-13 18:57] LABS: BACTERIA,URINE 0 /HPF (0-FEW); SQUAMOUS EPITHELIAL CELL,UR OCC /LPF; WBC,URINE OCC /HPF (0-4)
[2019-01-13 18:58] LABS: BILIRUBIN,URINE NEGATIVE (NEG); NITRITE,URINE NEGATIVE (NEG); PH,URINE 7.5; PROTHROMBIN TIME PATIENT 16.6 SEC (11.7-14.0); UROBILINOGEN,URINE 0.2 mg/dL (0.2 mg/dL)
[2019-01-13 19:00] LABS: ALBUMIN 2.7 g/dL (3.4-5.0); ALBUMIN/GLOBULIN RATIO 0.6 (1.0-1.7); TOTAL BILIRUBIN 0.3 mg/dL (0.2-1.0); TOTAL PROTEIN 7.3 g/dL (6.4-8.2)
--- NOTE | 2019-01-13 19:44 | PHYS DOC ---
Past Medical History Past Medical History: Hypertension Additional Past Medical Histor: "poor circulation" Past Surgical History: Other Additional Past Surgical Histo: stents placed in legs, knee surgery Alcohol Use: Occasionally Drug Use: None Adult General Chief Complaint Chief Complaint: URINE CATHETER PROBLEM HPI HPI 73 y/o female presents to ER for c/o sudden nose bleed and blood in her whitley cath drainage bag which started approx. 30 min. 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 She reports she blew her nose and had bleeding from her left nare which lasted briefly- she denies injury, sinus congestion, BOWERS, dizziness, or pain. She has no active bleeding at time of arrival from either nare. She reports soon after her nose bleed she noticed blood in her whitley drainage bag. She reports she was recently started on Eliquis for blood clot in her lt arm. She denies any abd pain, N/V/D, or fever. Review of Systems Review of Systems Constitutional: Denies fever or chills [] Eyes: Denies change in visual acuity, redness, or eye pain [] HENT: Denies nasal congestion or sore throat. Reports had brief lt nare nose bleed- no active bleeding on arrival and denies nasal pain Respiratory: Denies cough or shortness of breath [] Cardiovascular: No additional information not addressed in HPI [] GI: Denies abdominal pain, nausea, vomiting, bloody stools or diarrhea [] : Reports indwelling whitley cath since recent admission- had sudden onset blood in cath drainage bag approx. 30 min. REGIONAL OPERATIONS MANAGER to ER denying any injury/falls or pulling of whitley Musculoskeletal: Denies back pain or joint pain [] Integument: Denies rash or skin lesions [] Neurologic: Denies headache, focal weakness or sensory changes. Denies dizziness All other systems were reviewed and found to be within normal limits, except as documented in this note. Allergies Allergies Allergies Coded Allergies Type Severity Reaction Last Updated Verified acetaminophen Allergy Intermediate 11/01/18 No codeine Allergy Intermediate hives 12/15/14 Yes ezetimibe Allergy Intermediate Rash 03/06/15 Yes hydrocodone Allergy Intermediate 01/10/19 Yes Physical Exam Physical Exam Constitutional: Well developed, well nourished, no acute distress, non-toxic appearance. [] HENT: Normocephalic, atraumatic, bilateral ears normal, oropharynx moist, no oral exudates, nose normal- bilat. nares patent. No bleeding. [] Eyes: Pupils equal, conjunctiva normal, no discharge. [] Neck: Normal range of motion, no tenderness, supple, no stridor. [] Cardiovascular: Heart rate regular rhythm, no murmur [] Lungs & Thorax: Bilateral breath sounds clear to auscultation. Resp. equal/ nonlabored Abdomen: Bowel sounds normal, soft, no tenderness- no distention/rigidity, no masses, no pulsatile masses. [] Skin: Warm, dry, no erythema, no rash. [] Back: No tenderness, no CVA tenderness. [] Extremities: No tenderness, no cyanosis, no clubbing, ROM intact, no edema. 2+ bilat. radial Neurologic: Alert and oriented X 3, normal motor function, normal sensory function, no focal deficits noted. [] Psychologic: Affect normal, judgement normal, mood normal. [] Whitley cath leg bag with dark blood drainage- no clots visible. Current Patient Data Vital Signs Vital Signs Date Time Temp Pulse Resp B/P (MAP) Pulse Ox O2 Delivery O2 Flow Rate FiO2 01/13/19 17:45 98.1 65 20 197/80 (119) 98 Room Air 98.1 Lab Values Laboratory Tests Test 01/13/19 18:25 White Blood Count 10.9 x10^3/uL (4.0-11.0) Red Blood Count 3.57 x10^6/uL (3.50-5.40) Hemoglobin 10.1 g/dL (12.0-15.5) L Hematocrit 31.8 % (36.0-47.0) L Mean Corpuscular Volume 89 fL (79-100) Mean Corpuscular Hemoglobin 28 pg (25-35) Mean Corpuscular Hemoglobin Concent 32 g/dL (31-37) Red Cell Distribution Width 14.0 % (11.5-14.5) Platelet Count 302 x10^3/uL (140-400) Neutrophils (%) (Auto) 74 % (31-73) H Lymphocytes (%) (Auto) 18 % (24-48) L Monocytes (%) (Auto) 5 % (0-9) Eosinophils (%) (Auto) 2 % (0-3) Basophils (%) (Auto) 1 % (0-3) Neutrophils # (Auto) 8.1 x10^3uL (1.8-7.7) H Lymphocytes # (Auto) 2.0 x10^3/uL (1.0-4.8) Monocytes # (Auto) 0.5 x10^3/uL (0.0-1.1) Eosinophils # (Auto) 0.2 x10^3/uL (0.0-0.7) Basophils # (Auto) 0.1 x10^3/uL (0.0-0.2) Prothrombin Time 16.6 SEC (11.7-14.0) H Prothrombin Time INR 1.4 (0.8-1.1) H PTT 44 SEC (24-38) H Urine Collection Type Unknown Urine Color Red Urine Clarity Turbid Urine pH 7.5 Urine Specific [place] 1.010 Urine Protein >=300 mg/dL (NEG-TRACE) Urine Glucose (UA) Negative mg/dL (NEG) Urine Ketones (Stick) Negative mg/dL (NEG) Urine Blood Large (NEG) Urine Nitrite Negative (NEG) Urine Bilirubin Negative (NEG) Urine Urobilinogen Dipstick 0.2 mg/dL (0.2 mg/dL) Urine Leukocyte Esterase Moderate (NEG) Urine RBC Tntc /HPF (0-2) Urine WBC Occ /HPF (0-4) Urine Squamous Epithelial Cells Occ /LPF Urine Bacteria 0 /HPF (0-FEW) Sodium Level 139 mmol/L (136-145) Potassium Level 3.7 mmol/L (3.5-5.1) Chloride Level 103 mmol/L (98-107) Carbon Dioxide Level 23 mmol/L (21-32) Anion Gap 13 (6-14) Blood Urea Nitrogen 32 mg/dL (7-20) H Creatinine 3.5 mg/dL (0.6-1.0) H Estimated GFR (Cockcroft-Gault) 12.8 BUN/Creatinine Ratio 9 (6-20) Glucose Level 138 mg/dL (70-99) H Calcium Level 7.7 mg/dL (8.5-10.1) L Total Bilirubin 0.3 mg/dL (0.2-1.0) Aspartate Amino Transferase (AST) 15 U/L (15-37) Alanine Aminotransferase (ALT) 12 U/L (14-59) L Alkaline Phosphatase 129 U/L (46-116) H Total Protein 7.3 g/dL (6.4-8.2) Albumin 2.7 g/dL (3.4-5.0) L Albumin/Globulin Ratio 0.6 (1.0-1.7) L Laboratory Tests 01/13/19 18:25 Laboratory Tests 01/13/19 18:25 EKG EKG [] Radiology/Procedures Radiology/Procedures [] Course & Med Decision Making Course & Med Decision Making Pertinent Labs reviewed. (See chart for details) RN reported she irrigated pt's whitley cath and output became more clear and was pink tinged. She reported shortly after stopping the irrigation the output slowly darkened. On re-exam output is red not dark as it was at time of arrival - no visible clots. Pt is in no visible distress and is denying any pain. Discussed admission for further monitoring and she is agreeable with admit plan. Labs showed H&H at 10.1/31.8 and renal function slightly improved from previous results BUN/Cr 32/3.5 today. 1920: Spoke with Dr. Henderson, pt's PCP and discussed pt's case and admit plan. Will hold Eliquis/aspirin and consult urology with admit orders. Dragon Disclaimer Dragon Disclaimer This electronic medical record was generated, in whole or in part, using a voice recognition dictation system. Departure Departure Impression: Primary Impression: Hematuria Disposition: 09 ADMITTED INPATIENT Admitting Physician: Paris Henderson Condition: STABLE Referrals: PARIS HENDERSON MD (PCP) AURY BELLO APRN Jan 13, 2019 19:44
[2019-01-13] MEDS ORDERED: ACETAMINOPHEN 325 MG TABLET. PO PRN (19:45)
[2019-01-13 20:00] VITALS: BP 166/76
[2019-01-13 23:00] VITALS: BP 161/65
[2019-01-13] MEDS ORDERED: C.DIFF MED SCREEN BY RX. MC ONE (23:00)
[2019-01-14 02:57] VITALS: BP 149/68
[2019-01-14 05:45] LABS: BASO # 0.1 x10^3/uL (0.0-0.2); BASO % 1 % (0-3); EOS # 0.3 x10^3/uL (0.0-0.7); EOS % 3 % (0-3); HEMATOCRIT 30.8 % (36.0-47.0); HEMOGLOBIN 10.3 g/dL (12.0-15.5); LYMPH # 2.4 x10^3/uL (1.0-4.8); LYMPH % 23 % (24-48); MEAN CORPUSCULAR HEMOGLOBIN 30 pg (25-35); MEAN CORPUSCULAR HGB CONC 33 g/dL (31-37); MEAN CORPUSCULAR VOLUME 89 fL (79-100); MONO # 0.6 x10^3/uL (0.0-1.1); MONO % 6 % (0-9); NEUT # 6.8 x10^3uL (1.8-7.7); NEUT % 66 % (31-73); PLATELET COUNT 261 x10^3/uL (140-400); RED BLOOD COUNT 3.48 x10^6/uL (3.50-5.40); RED CELL DISTRIBUTION WIDTH 13.8 % (11.5-14.5); WHITE BLOOD COUNT 10.2 x10^3/uL (4.0-11.0)
[2019-01-14 05:56] LABS: CALCIUM 7.7 mg/dL (8.5-10.1); CREATININE 3.5 mg/dL (0.6-1.0); GFR 12.8; POTASSIUM 4.2 mmol/L (3.5-5.1)
[2019-01-14 07:00] VITALS: BP 169/66
--- NOTE | 2019-01-14 09:54 | PDOC ---
Provider Note Provider Note Patient seen. History and Physical dictated. See dictation# [id number] PARIS CASTILLO MD Jan 14, 2019 09:54
[2019-01-14] MEDS ORDERED: PANTOPRAZOLE 40 MG TABLET.DR. PO SCH (10:00)
--- NOTE | 2019-01-14 10:33 | HP ---
ADMIT DATE: 01/13/2019 HISTORY OF PRESENT ILLNESS: This is a 73-year-old female who was just discharged from the hospital on 01/12 after being treated for acute obstructive uropathy with severe left hydronephrosis and a creatinine of 7.1, underwent a replacement of the ureteral stent and a placement of a Blair catheter, and her creatinine had come down from 7.1-3.8, and it was thought they will continue to improve as outpatient. So, the patient was discharged home. However, before the discharge, staff noted that she had swelling of the left upper extremity and so a venous Doppler was ordered that showed nonocclusive thrombus of the left brachial vein. Because of that, it was discussed with the pharmacist who recommended Eliquis 10 mg twice daily, but I decreased it to 5 mg twice a day and prescription was given to the patient. However, the patient went home and was quite active and moved around a lot and then next day she started noticing blood in the Blair catheter, so she came to the Emergency Room because of the hematuria. The patient is admitted for further evaluation and management. SYSTEMS REVIEW: At present time, the patient denies any chest pains, abdominal pain, nausea, vomiting, diarrhea, fever, chills, dysuria or any other issues other than hematuria. Other systems reviewed and are negative. PAST MEDICAL HISTORY: As noted earlier, the patient was just admitted here on 01/07/2019 and discharged on 01/12 after being treated for acute renal failure with chronic kidney disease stage 3 secondary to obstructive uropathy. The patient had a left ureteral stent that was changed previously in July, but changed during the last admission. The patient was also treated for acute hypertensive crisis, COPD, systolic congestive heart failure with ejection fraction of 30%, severe left hydronephrosis, right atrophic kidney, anemia with B12 deficiency, diverticulosis, history of left-sided ischemic colitis, peripheral vascular disease with history of multiple stents, right upper lobe nodule 1.5 cm, hyperlipidemia, moderate aortic regurgitation, pulmonary hypertension, chronic hypomagnesemia, hypothyroidism. PAST SURGICAL HISTORY: PVD with multiple stent placements and cholecystectomy. The patient had left ureteral stent that was replaced last time. FAMILY HISTORY: Includes coronary artery disease and stroke in maternal grandmother. SOCIAL HISTORY: The patient is , has a history of smoking, continues to smoke. No history of alcoholism or drug abuse. ALLERGIES: THE PATIENT IS ALLERGIC TO CODEINE. SHE IS ALSO LISTED HAVING ALLERGIES TO ACETAMINOPHEN, BUT SHE HAS TAKEN IT PREVIOUSLY. SHE IS ALSO LISTED ALLERGIC TO EZETIMIBE. MEDICATIONS: Reviewed and reconciled. PHYSICAL EXAMINATION: VITAL SIGNS: Temperature 98.3, pulse 61 per minute, respirations 17 per minute, blood pressure this morning is 169/66, on admission it was 197/86. GENERAL: The patient is an elderly female who is alert, oriented x 3 and not in acute distress. EYES: Pupils reacting to light. Conjunctivae pale. Sclerae muddy. HEENT: Unremarkable. NECK: Supple. JVP normal. No thyromegaly. Trachea midline. LUNGS: Decreased breath sounds at bases. CARDIOVASCULAR: S1, S2 regular. ABDOMEN: Soft, nontender, no guarding, no rigidity. Bowel sounds present. EXTREMITIES: No edema. CENTRAL NERVOUS SYSTEM: Alert and oriented, moves extremities. No acute changes. The patient has a Blair catheter with hematuria. LABORATORY FINDINGS: Sodium 139 yesterday, 145 today. Potassium 3.7 yesterday, 4.2 today. BUN 32 and creatinine 3.5 yesterday. BUN is 31 and creatinine 3.5 today. Calcium is 7.7, albumin 2.7. Urinalysis shows large blood, too numerous to count rbc's, occasional wbc's, 0 bacteria. WBC count 10.9 yesterday, 10.2 today. Hemoglobin 10.1. A venous Doppler of the left upper extremity showed nonocclusive thrombus of the left brachial vein. IMPRESSION: 1. Hematuria secondary to Eliquis and possible Blair catheter trauma. 2. Acute renal failure with chronic kidney disease stage 3 secondary to obstructive uropathy. During the last admission, left ureteral stent was replaced. 3. Acute hypertensive crisis. 4. Chronic obstructive pulmonary disease. 5. Systolic congestive heart failure with ejection fraction of 30%. 6. Left hydronephrosis, severe. 7. Right atrophic kidney. 8. Anemia, B12 deficiency. 9. Diverticulosis. 10. History of left-sided ischemic colitis. 11. Peripheral vascular disease with history of multiple stents. 12. Right upper lobe nodule 1.5 cm. 13. Hyperlipidemia 14. Moderate aortic regurgitation. 15. Pulmonary hypertension. 16. Chronic hypomagnesemia. 17. Hypothyroidism. PLAN: I will restart IV fluids. Consult Dr. Flores for urology evaluation and management. Continue IV fluids. If the clots get worse, then she may need a continuous bladder irrigation, but currently urine appears to be flowing well with reddish discoloration. I will start her on IV fluids and recheck labs in a.m. The patient was started on hydralazine 25 mg 3 times a day during the last admission and hopefully with her medications, her blood pressure will continue to improve. I will discontinue Eliquis and also hold aspirin for now. Restart oral cefdinir. For details, please refer to the orders. We will monitor the swelling in the left arm, which is improving. She has some bruising also in the left arm near the brachial fossa. For details, please refer to the orders. PARIS CASTILLO MD DR: KALANI/deepika JOB#: [id number] / [id number]
[2019-01-14] MEDS: IV DEXTROSE 5 %-0.45 % NACL 1,000 ML IV SCH ×2 (10:43→23:11)
[2019-01-14] MEDS: CEFDINIR 300 MG CAPSULE PO SCH (10:44)
[2019-01-14] MEDS: MAGNESIUM OXIDE 400 MG TABLET PO SCH ×3 (10:44→21:20)
[2019-01-14] MEDS: LEVOTHYROXINE 75 MCG TABLET PO SCH (10:44)
[2019-01-14] MEDS: CYANOCOBALAMIN (VITAMIN B-12) 1,000 MCG TABLET. PO SCH (10:44)
[2019-01-14] MEDS: amLODIPine BESYLATE 10 MG TABLET PO SCH (10:45)
[2019-01-14] MEDS: hydrALAZINE 25 MG TABLET PO SCH ×3 (10:45→21:19)
[2019-01-14] MEDS: ATENOLOL 25 MG TABLET. PO SCH (10:45)
[2019-01-14 11:00] VITALS: BP 169/65
--- NOTE | 2019-01-14 11:03 | PDOC2 ---
PROSPER MORALES TECHNICAL ANALYST 01/14/19 1103: UROLOGY CONSULT Date of Consult Date of Consult DATE: 01/14/19 TIME: 10:57 Reason for Consult Reason for Consult: Gross Hematuria Identification/Chief Complaint Chief Complaint Gross Hematuria Source Source: Caregiver, Chart review, Patient History of Present Illness Reason for Visit: Patient is known to us and is a patient' of Dr. Merida's. She was recently in house for hydronephrosis and had a ureteral stent exchange which was done by Dr. Merida on . Over the next several days, patient did have some improvement in her creatinine and pain and was ultimately discharged. She convalesced at home for a few days, her blood thinner was restarted and then returned through the ER when she saw blood in her catheter last night. Despite the blood, she has not seen any clots and the Whitley catheter appears to be working well. She would like to get the Whitley catheter removed and try to void on her own if possible. Past Medical History Cardiovascular: CHF, HTN, Hyperlipidemia, Pulmonary hypertension, Other Pulmonary: COPD, Other GI: Diverticulosis Heme/Onc: Anemia NOS, B12 deficiency Hepatobiliary: No pertinent hx Psych: No pertinent hx Musculoskeletal: No pain Rheumatologic: No pertinent hx Infectious disease: No pertinent hx Renal/: Chronic renal insuff Endocrine: Hyperthyroidism Past Surgical History Past Surgical History: Other Family History Family History: Heart Disease, Stroke Social History ALCOHOL: none Drugs: None Lives: with Family Domestic Violence: Neg Current Problem List Problems: (1) Hematuria Current Medications Current Medications Current Medications Acetaminophen (Tylenol) 650 mg PRN Q4HRS PRN PO FEVER; Start 01/13/19 at 19:45 ; Stop 01/14/19 at 19:44 Amlodipine Besylate (Norvasc) 10 mg DAILY PO Last administered on 01/14/19at 10: 45; Start 01/14/19 at 10:00 Atenolol (Tenormin) 25 mg DAILY PO Last administered on 01/14/19at 10:45; Start 01/14/19 at 10:00 Atorvastatin Calcium (Lipitor) 20 mg HS PO ; Start 01/14/19 at 21:00 Cefdinir (Omnicef) 300 mg DAILY PO Last administered on 01/14/19at 10:44; Start 01/14/19 at 10:00 Cyanocobalamin (Vitamin B-12) 1,000 mcg DAILY PO Last administered on 01/14/19 10:44; Start 01/14/19 at 10:00 Dextrose/Sodium Chloride 1,000 ml @ 75 mls/hr [id number] IV Last administered on 01/14/19 10:43; Start 01/14/19 at 10:30 Hydralazine HCl (Apresoline) 25 mg TID PO Last administered on 01/14/19 10:45; Start 01/14/19 at 10:00 Levothyroxine Sodium (Synthroid) 75 mcg DAILY07 PO Last administered on 10:44; Start 01/14/19 at 10:00 Magnesium Oxide (Magnesium Oxide) 400 mg TID PO Last administered on 01/14/19 10:44; Start 01/14/19 at 10:00 Pantoprazole Sodium (Protonix) 40 mg DAILYAC PO Last administered on 01/14/19 10:44; Start 01/14/19 at 10:00 Pharmacy Consult (C.diff Med Screen By Rx) 1 each 1X ONCE [facility] ; Start 01/13/19 at 23:00; Stop 01/13/19 at 23:01; Status DC Allergies Allergies: Coded Allergies: acetaminophen (Unverified Allergy, Intermediate, 11/01/18) codeine (Verified Allergy, Intermediate, hives, 12/15/14) ezetimibe (Verified Allergy, Intermediate, Rash, 03/06/15) hydrocodone (Verified Allergy, Intermediate, 01/10/19) ROS Review Of Systems: CONSTITUTIONAL: No fever or chills EYES: No recent changes SKIN: No rash or itching CARDIOVASCULAR: No chest pain, syncope, palpitations, or edema RESPIRATORY: No SOB or cough GASTROINTESTINAL: No nausea, vomiting or abdominal pain NEUROLOGICAL: No headaches or weakness ENDOCRINE: No cold or heat intolerance GENITOURINARY: No urgency or frequency of urination MUSCULOSKELETAL: No back pain or joint pain LYMPHATICS: No enlarged lymph nodes PSYCHIATRIC: No anxiety or depression Physical Exam Physical Exam: General: Pleasant, no acute distress, well groomed Eyes: conjunctiva anicteric, eyes full range of motion ENT: moist oral mucosa, normal dentition Neck: Trachea midline, no masses Respiratory: unlabored breathing, not using accessory muscles Abdomen: nontender, nondistended, no hepatosplenomegaly, no masses : Whitley catheter draining red tinged urine with no clots. Skin: no rashes or skin lesions on visualized skin Psych: normal mood, affect. Alert and oriented x 3. Vitals VITALS Vital Signs Date Time Temp Pulse Resp B/P (MAP) Pulse Ox O2 Delivery O2 Flow Rate FiO2 01/14/19 10:45 61 169/66 01/14/19 07:00 98.3 17 95 Room Air 98.3 Labs Labs Laboratory Tests Test 01/13/19 18:25 01/14/19 04:36 White Blood Count 10.9 x10^3/uL (4.0-11.0) 10.2 x10^3/uL (4.0-11.0) Red Blood Count 3.57 x10^6/uL (3.50-5.40) 3.48 x10^6/uL (3.50-5.40) Hemoglobin 10.1 g/dL (12.0-15.5) 10.3 g/dL (12.0-15.5) Hematocrit 31.8 % (36.0-47.0) 30.8 % (36.0-47.0) Mean Corpuscular Volume 89 fL (79-100) 89 fL (79-100) Mean Corpuscular Hemoglobin 28 pg (25-35) 30 pg (25-35) Mean Corpuscular Hemoglobin Concent 32 g/dL (31-37) 33 g/dL (31-37) Red Cell Distribution Width 14.0 % (11.5-14.5) 13.8 % (11.5-14.5) Platelet Count 302 x10^3/uL (140-400) 261 x10^3/uL (140-400) Neutrophils (%) (Auto) 74 % (31-73) 66 % (31-73) Lymphocytes (%) (Auto) 18 % (24-48) 23 % (24-48) Monocytes (%) (Auto) 5 % (0-9) 6 % (0-9) Eosinophils (%) (Auto) 2 % (0-3) 3 % (0-3) Basophils (%) (Auto) 1 % (0-3) 1 % (0-3) Neutrophils # (Auto) 8.1 x10^3uL (1.8-7.7) 6.8 x10^3uL (1.8-7.7) Lymphocytes # (Auto) 2.0 x10^3/uL (1.0-4.8) 2.4 x10^3/uL (1.0-4.8) Monocytes # (Auto) 0.5 x10^3/uL (0.0-1.1) 0.6 x10^3/uL (0.0-1.1) Eosinophils # (Auto) 0.2 x10^3/uL (0.0-0.7) 0.3 x10^3/uL (0.0-0.7) Basophils # (Auto) 0.1 x10^3/uL (0.0-0.2) 0.1 x10^3/uL (0.0-0.2) Prothrombin Time 16.6 SEC (11.7-14.0) Prothromb Time International Ratio 1.4 (0.8-1.1) Activated Partial Thromboplast Time 44 SEC (24-38) Urine Collection Type Unknown Urine Color Red Urine Clarity Turbid Urine pH 7.5 Urine Specific [place] 1.010 Urine Protein >=300 mg/dL (NEG-TRACE) Urine Glucose (UA) Negative mg/dL (NEG) Urine Ketones (Stick) Negative mg/dL (NEG) Urine Blood Large (NEG) Urine Nitrite Negative (NEG) Urine Bilirubin Negative (NEG) Urine Urobilinogen Dipstick 0.2 mg/dL (0.2 mg/dL) Urine Leukocyte Esterase Moderate (NEG) Urine RBC Tntc /HPF (0-2) Urine WBC Occ /HPF (0-4) Urine Squamous Epithelial Cells Occ /LPF Urine Bacteria 0 /HPF (0-FEW) Sodium Level 139 mmol/L (136-145) 145 mmol/L (136-145) Potassium Level 3.7 mmol/L (3.5-5.1) 4.2 mmol/L (3.5-5.1) Chloride Level 103 mmol/L (98-107) 110 mmol/L (98-107) Carbon Dioxide Level 23 mmol/L (21-32) 24 mmol/L (21-32) Anion Gap 13 (6-14) 11 (6-14) Blood Urea Nitrogen 32 mg/dL (7-20) 31 mg/dL (7-20) Creatinine 3.5 mg/dL (0.6-1.0) 3.5 mg/dL (0.6-1.0) Estimated GFR (Cockcroft-Gault) 12.8 12.8 BUN/Creatinine Ratio 9 (6-20) Glucose Level 138 mg/dL (70-99) 93 mg/dL (70-99) Calcium Level 7.7 mg/dL (8.5-10.1) 7.7 mg/dL (8.5-10.1) Total Bilirubin 0.3 mg/dL (0.2-1.0) Aspartate Amino Transf (AST/SGOT) 15 U/L (15-37) Alanine Aminotransferase (ALT/SGPT) 12 U/L (14-59) Alkaline Phosphatase 129 U/L (46-116) Total Protein 7.3 g/dL (6.4-8.2) Albumin 2.7 g/dL (3.4-5.0) Albumin/Globulin Ratio 0.6 (1.0-1.7) Laboratory Tests Test 01/13/19 18:25 01/14/19 04:36 White Blood Count 10.9 x10^3/uL (4.0-11.0) 10.2 x10^3/uL (4.0-11.0) Red Blood Count 3.57 x10^6/uL (3.50-5.40) 3.48 x10^6/uL (3.50-5.40) Hemoglobin 10.1 g/dL (12.0-15.5) 10.3 g/dL (12.0-15.5) Hematocrit 31.8 % (36.0-47.0) 30.8 % (36.0-47.0) Mean Corpuscular Volume 89 fL (79-100) 89 fL (79-100) Mean Corpuscular Hemoglobin 28 pg (25-35) 30 pg (25-35) Mean Corpuscular Hemoglobin Concent 32 g/dL (31-37) 33 g/dL (31-37) Red Cell Distribution Width 14.0 % (11.5-14.5) 13.8 % (11.5-14.5) Platelet Count 302 x10^3/uL (140-400) 261 x10^3/uL (140-400) Neutrophils (%) (Auto) 74 % (31-73) 66 % (31-73) Lymphocytes (%) (Auto) 18 % (24-48) 23 % (24-48) Monocytes (%) (Auto) 5 % (0-9) 6 % (0-9) Eosinophils (%) (Auto) 2 % (0-3) 3 % (0-3) Basophils (%) (Auto) 1 % (0-3) 1 % (0-3) Neutrophils # (Auto) 8.1 x10^3uL (1.8-7.7) 6.8 x10^3uL (1.8-7.7) Lymphocytes # (Auto) 2.0 x10^3/uL (1.0-4.8) 2.4 x10^3/uL (1.0-4.8) Monocytes # (Auto) 0.5 x10^3/uL (0.0-1.1) 0.6 x10^3/uL (0.0-1.1) Eosinophils # (Auto) 0.2 x10^3/uL (0.0-0.7) 0.3 x10^3/uL (0.0-0.7) Basophils # (Auto) 0.1 x10^3/uL (0.0-0.2) 0.1 x10^3/uL (0.0-0.2) Prothrombin Time 16.6 SEC (11.7-14.0) Prothromb Time International Ratio 1.4 (0.8-1.1) Activated Partial Thromboplast Time 44 SEC (24-38) Urine Collection Type Unknown Urine Color Red Urine Clarity Turbid Urine pH 7.5 Urine Specific [place] 1.010 Urine Protein >=300 mg/dL (NEG-TRACE) Urine Glucose (UA) Negative mg/dL (NEG) Urine Ketones (Stick) Negative mg/dL (NEG) Urine Blood Large (NEG) Urine Nitrite Negative (NEG) Urine Bilirubin Negative (NEG) Urine Urobilinogen Dipstick 0.2 mg/dL (0.2 mg/dL) Urine Leukocyte Esterase Moderate (NEG) Urine RBC Tntc /HPF (0-2) Urine WBC Occ /HPF (0-4) Urine Squamous Epithelial Cells Occ /LPF Urine Bacteria 0 /HPF (0-FEW) Sodium Level 139 mmol/L (136-145) 145 mmol/L (136-145) Potassium Level 3.7 mmol/L (3.5-5.1) 4.2 mmol/L (3.5-5.1) Chloride Level 103 mmol/L (98-107) 110 mmol/L (98-107) Carbon Dioxide Level 23 mmol/L (21-32) 24 mmol/L (21-32) Anion Gap 13 (6-14) 11 (6-14) Blood Urea Nitrogen 32 mg/dL (7-20) 31 mg/dL (7-20) Creatinine 3.5 mg/dL (0.6-1.0) 3.5 mg/dL (0.6-1.0) Estimated GFR (Cockcroft-Gault) 12.8 12.8 BUN/Creatinine Ratio 9 (6-20) Glucose Level 138 mg/dL (70-99) 93 mg/dL (70-99) Calcium Level 7.7 mg/dL (8.5-10.1) 7.7 mg/dL (8.5-10.1) Total Bilirubin 0.3 mg/dL (0.2-1.0) Aspartate Amino Transf (AST/SGOT) 15 U/L (15-37) Alanine Aminotransferase (ALT/SGPT) 12 U/L (14-59) Alkaline Phosphatase 129 U/L (46-116) Total Protein 7.3 g/dL (6.4-8.2) Albumin 2.7 g/dL (3.4-5.0) Albumin/Globulin Ratio 0.6 (1.0-1.7) Assessment/Plan Assessment/Plan Gross hematuria with ACCOUNTS PAYABLE ADMINISTRATOR 3.5 consistently for two days. Unlikely we will see more improvement in this by leaving Whitley in longer. Nursing may remove Whitley catheter for voiding trial. Told patient to attempt to void roughly one hour after catheter removal and then every hour to hour and a half thereafter. Bladder scan patient between 5 and 6 pm. If PVR greater than 350, please replace Whitley catheter. If PVR less than 350, leave Whitley catheter out and encourage voiding. Nephrology consult for Equipment Processor 3. Will follow. PATRICIA MERIDA MD 01/14/19 1215: UROLOGY CONSULT Assessment/Plan Assessment/Plan I have seen Ms Alvarado and she is comfortable and her whitley is now out. I agree with the plan of care. She will need continued monitoring of creatinine. She has appt with Dr Jacome in 4 wks. PROSPER MORALES APRN Jan 14, 2019 11:03 PATRICIA MERIDA MD Jan 14, 2019 12:15
--- NOTE | 2019-01-14 14:22 | PDOC ---
Renal-Progress Notes Subjective Notes Notes BLOOD IN HER URINE History of Present Illness Hx of present illness BETTER Vitals Vitals Vital Signs Date Time Temp Pulse Resp B/P (MAP) Pulse Ox O2 Delivery O2 Flow Rate FiO2 01/14/19 11:00 98.4 61 17 169/65 (99) 94 Room Air 98.4 Weight Weight [ ] I.O. Intake and Output Intake and Output 01/14/19 07:00 Output Total 850 ml Balance -850 ml Output Urine Total 850 ml Labs Labs Laboratory Tests Test 01/13/19 18:25 01/14/19 04:36 White Blood Count 10.9 x10^3/uL (4.0-11.0) 10.2 x10^3/uL (4.0-11.0) Red Blood Count 3.57 x10^6/uL (3.50-5.40) 3.48 x10^6/uL (3.50-5.40) Hemoglobin 10.1 g/dL (12.0-15.5) 10.3 g/dL (12.0-15.5) Hematocrit 31.8 % (36.0-47.0) 30.8 % (36.0-47.0) Mean Corpuscular Volume 89 fL (79-100) 89 fL (79-100) Mean Corpuscular Hemoglobin 28 pg (25-35) 30 pg (25-35) Mean Corpuscular Hemoglobin Concent 32 g/dL (31-37) 33 g/dL (31-37) Red Cell Distribution Width 14.0 % (11.5-14.5) 13.8 % (11.5-14.5) Platelet Count 302 x10^3/uL (140-400) 261 x10^3/uL (140-400) Neutrophils (%) (Auto) 74 % (31-73) 66 % (31-73) Lymphocytes (%) (Auto) 18 % (24-48) 23 % (24-48) Monocytes (%) (Auto) 5 % (0-9) 6 % (0-9) Eosinophils (%) (Auto) 2 % (0-3) 3 % (0-3) Basophils (%) (Auto) 1 % (0-3) 1 % (0-3) Neutrophils # (Auto) 8.1 x10^3uL (1.8-7.7) 6.8 x10^3uL (1.8-7.7) Lymphocytes # (Auto) 2.0 x10^3/uL (1.0-4.8) 2.4 x10^3/uL (1.0-4.8) Monocytes # (Auto) 0.5 x10^3/uL (0.0-1.1) 0.6 x10^3/uL (0.0-1.1) Eosinophils # (Auto) 0.2 x10^3/uL (0.0-0.7) 0.3 x10^3/uL (0.0-0.7) Basophils # (Auto) 0.1 x10^3/uL (0.0-0.2) 0.1 x10^3/uL (0.0-0.2) Prothrombin Time 16.6 SEC (11.7-14.0) Prothromb Time International Ratio 1.4 (0.8-1.1) Activated Partial Thromboplast Time 44 SEC (24-38) Urine Collection Type Unknown Urine Color Red Urine Clarity Turbid Urine pH 7.5 Urine Specific Rector 1.010 Urine Protein >=300 mg/dL (NEG-TRACE) Urine Glucose (UA) Negative mg/dL (NEG) Urine Ketones (Stick) Negative mg/dL (NEG) Urine Blood Large (NEG) Urine Nitrite Negative (NEG) Urine Bilirubin Negative (NEG) Urine Urobilinogen Dipstick 0.2 mg/dL (0.2 mg/dL) Urine Leukocyte Esterase Moderate (NEG) Urine RBC Tntc /HPF (0-2) Urine WBC Occ /HPF (0-4) Urine Squamous Epithelial Cells Occ /LPF Urine Bacteria 0 /HPF (0-FEW) Sodium Level 139 mmol/L (136-145) 145 mmol/L (136-145) Potassium Level 3.7 mmol/L (3.5-5.1) 4.2 mmol/L (3.5-5.1) Chloride Level 103 mmol/L (98-107) 110 mmol/L (98-107) Carbon Dioxide Level 23 mmol/L (21-32) 24 mmol/L (21-32) Anion Gap 13 (6-14) 11 (6-14) Blood Urea Nitrogen 32 mg/dL (7-20) 31 mg/dL (7-20) Creatinine 3.5 mg/dL (0.6-1.0) 3.5 mg/dL (0.6-1.0) Estimated GFR (Cockcroft-Gault) 12.8 12.8 BUN/Creatinine Ratio 9 (6-20) Glucose Level 138 mg/dL (70-99) 93 mg/dL (70-99) Calcium Level 7.7 mg/dL (8.5-10.1) 7.7 mg/dL (8.5-10.1) Total Bilirubin 0.3 mg/dL (0.2-1.0) Aspartate Amino Transf (AST/SGOT) 15 U/L (15-37) Alanine Aminotransferase (ALT/SGPT) 12 U/L (14-59) Alkaline Phosphatase 129 U/L (46-116) Total Protein 7.3 g/dL (6.4-8.2) Albumin 2.7 g/dL (3.4-5.0) Albumin/Globulin Ratio 0.6 (1.0-1.7) Review of Systems Constitutional: yes: alert, oriented Ears/Nose/Throat: Yes: no symptom reported Eyes: Yes: no symptom reported Pulmonary: Yes no symptom reported Cardiovascular: Yes no symptom reported Gastrointestional: Yes: no symptom reported Genitourinary: Yes: hematuria Musculoskeletal: Yes: no symptom reported Skin: Yes no symptom reported Psychiatric/Neurological: Yes: no symptom reported Endocrine: Yes: no symptom reported Physical Exam General Appearance: no apparent distress Skin: warm Respiratory: decreased breath sounds Heart: S1S2 Abdomen: soft Genitourinary: bladder flat Extremities: pulses present Neurology: alert Musculoskeletal: No pain Assessment Assessment IMP HEMATURIA DUE TO ANTICOAGULATION AND BEDOYA ALESSIA BETTER WITH CR OF 3.5 SEVERE LEFT HYDRONEPHROSIS-S/P LEFT URETERAL STENT CKD STAGE 3 WITH CR OF 1.4-2.0 AT BASELINE NON FUNCTIONING ATROPHIED RIGHT KIDNEY HX OF CM WITH EF OF 30%-COMPENSATED HD OF HTN PLAN HYDRATION AVOID NEPHROTOXINS BEDOYA OUT EXPECT SOME MORE IMPROVEMENT IN CR IN TIME - PROB HAS SOME DEGREE OF ATN NOW IT IS POSSIBLE HER NEW CR BASELINE WILL BE HIGHER THAN PREVIOUS LEVEL OF 1.4-2.0 SHE WILL FOLLOW UP IN THE OFFICE ONCE DISCHARGED D/W UROLOGY ALFREDITO JOHNSON MD Jan 14, 2019 14:22
[2019-01-14 15:00] VITALS: BP 145/56
[2019-01-14 19:00] VITALS: BP 150/55
[2019-01-14] MEDS ORDERED: FAMOTIDINE 20 MG TABLET. PO SCH ×2 (21:00)
[2019-01-14] MEDS: LACTOBACILLUS RHAMNOSUS GG 1 CAPSULE. PO SCH (21:19)
[2019-01-14] MEDS: ATORVASTATIN CALCIUM 20 MG TABLET PO SCH (21:19)
[2019-01-14 23:00] VITALS: BP 144/60
[2019-01-15] VITALS (8 sets, daily range): BP systolic 114–166; BP diastolic 54–92
[2019-01-15 03:56] LABS: BASO # 0.1 x10^3/uL (0.0-0.2); BASO % 1 % (0-3); EOS # 0.4 x10^3/uL (0.0-0.7); EOS % 4 % (0-3); HEMOGLOBIN 9.5 g/dL (12.0-15.5); LYMPH # 3.1 x10^3/uL (1.0-4.8); LYMPH % 31 % (24-48); MEAN CORPUSCULAR HEMOGLOBIN 29 pg (25-35); MEAN CORPUSCULAR HGB CONC 33 g/dL (31-37); MEAN CORPUSCULAR VOLUME 89 fL (79-100); MONO # 0.6 x10^3/uL (0.0-1.1); MONO % 7 % (0-9); NEUT # 5.8 x10^3uL (1.8-7.7); NEUT % 58 % (31-73); PLATELET COUNT 260 x10^3/uL (140-400); RED BLOOD COUNT 3.24 x10^6/uL (3.50-5.40); RED CELL DISTRIBUTION WIDTH 13.9 % (11.5-14.5)
[2019-01-15 04:18] LABS: ALBUMIN 2.5 g/dL (3.4-5.0); ALBUMIN/GLOBULIN RATIO 0.6 (1.0-1.7); CALCIUM 7.2 mg/dL (8.5-10.1); CREATININE 3.1 mg/dL (0.6-1.0); GFR 14.8; POTASSIUM 4.2 mmol/L (3.5-5.1); TOTAL BILIRUBIN 0.2 mg/dL (0.2-1.0); TOTAL PROTEIN 6.5 g/dL (6.4-8.2)
[2019-01-15] MEDS: LEVOTHYROXINE 75 MCG TABLET PO SCH (05:43)
--- NOTE | 2019-01-15 09:23 | PDOC ---
SUBJECTIVE Subjective She passed her voiding trial yesterday. Urine still a light red, no clots. No dysuria or difficulty emptying bladder; no abd or flank pain this am. Nephrology did come by and speak to her yesterday. OBJECTIVE Objective Physical Exam: General appearance: Alert and Oriented Head: Normocephalic, without obvious abnormality Eyes: conjunctivae/corneas clear. PERRL, EOM's intact. Fundi benign Back: no flank pain bilaterally Lungs: Regular respirations, non labored breathing Abdomen: soft, non-tender. No masses, no organomegaly Pelvic: deferred Vital Signs Vital Signs Date Time Temp Pulse Resp B/P (MAP) Pulse Ox O2 Delivery O2 Flow Rate FiO2 01/15/19 08:00 Room Air 01/15/19 07:50 98.2 59 17 139/67 (91) 96 Room Air 98.2 01/15/19 07:00 98.5 91 18 116/66 (83) 93 Room Air 98.5 01/15/19 03:00 98.3 63 18 153/66 (95) 94 Room Air 98.3 01/14/19 23:00 98.4 61 18 144/60 (88) 95 Room Air 98.4 01/14/19 21:19 65 150/55 01/14/19 19:58 Room Air 01/14/19 19:00 98.1 65 18 150/55 (86) 95 Room Air 98.1 01/14/19 15:00 98.6 64 18 145/56 (85) 93 Room Air 98.6 01/14/19 14:40 64 145/56 01/14/19 11:00 98.4 61 17 169/65 (99) 94 Room Air 98.4 01/14/19 10:45 61 169/66 01/14/19 10:45 61 169/66 01/14/19 10:45 61 169/66 I & O Intake and Output 01/15/19 07:00 Intake Total 1200 ml Output Total 1240 ml Balance -40 ml Intake Oral 1200 ml Output Urine Total 1240 ml # Voids 3 # Bowel Movements 1 PHYSICAL EXAM Physical Exam Physical Exam: General appearance: Alert and Oriented Head: Normocephalic, without obvious abnormality Eyes: conjunctivae/corneas clear. PERRL, EOM's intact. Fundi benign Back: no flank pain bilaterally Lungs: Regular respirations, non labored breathing Abdomen: soft, non-tender. No masses, no organomegaly Pelvic: deferred ASSESSMENT/PLAN Assessment/Plan Passed voiding trial yesterday and doing well since. Discussed with patient that she may see bloody urine for the next couple of days. Please report very dark, wine colored urine or urine with large clots (1/ 2 dollar sized) to nursing staff. However, urine color should slowly return to normal now that catheter is out. 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 Will check on her tomorrow COMMENT Lab Laboratory Tests Test 01/15/19 03:00 White Blood Count 10.0 x10^3/uL (4.0-11.0) Red Blood Count 3.24 x10^6/uL (3.50-5.40) Hemoglobin 9.5 g/dL (12.0-15.5) Hematocrit 29.0 % (36.0-47.0) Mean Corpuscular Volume 89 fL (79-100) Mean Corpuscular Hemoglobin 29 pg (25-35) Mean Corpuscular Hemoglobin Concent 33 g/dL (31-37) Red Cell Distribution Width 13.9 % (11.5-14.5) Platelet Count 260 x10^3/uL (140-400) Neutrophils (%) (Auto) 58 % (31-73) Lymphocytes (%) (Auto) 31 % (24-48) Monocytes (%) (Auto) 7 % (0-9) Eosinophils (%) (Auto) 4 % (0-3) Basophils (%) (Auto) 1 % (0-3) Neutrophils # (Auto) 5.8 x10^3uL (1.8-7.7) Lymphocytes # (Auto) 3.1 x10^3/uL (1.0-4.8) Monocytes # (Auto) 0.6 x10^3/uL (0.0-1.1) Eosinophils # (Auto) 0.4 x10^3/uL (0.0-0.7) Basophils # (Auto) 0.1 x10^3/uL (0.0-0.2) Sodium Level 142 mmol/L (136-145) Potassium Level 4.2 mmol/L (3.5-5.1) Chloride Level 107 mmol/L (98-107) Carbon Dioxide Level 26 mmol/L (21-32) Anion Gap 9 (6-14) Blood Urea Nitrogen 25 mg/dL (7-20) Creatinine 3.1 mg/dL (0.6-1.0) Estimated GFR (Cockcroft-Gault) 14.8 BUN/Creatinine Ratio 8 (6-20) Glucose Level 90 mg/dL (70-99) Calcium Level 7.2 mg/dL (8.5-10.1) Total Bilirubin 0.2 mg/dL (0.2-1.0) Aspartate Amino Transf (AST/SGOT) 14 U/L (15-37) Alanine Aminotransferase (ALT/SGPT) 12 U/L (14-59) Alkaline Phosphatase 117 U/L (46-116) Total Protein 6.5 g/dL (6.4-8.2) Albumin 2.5 g/dL (3.4-5.0) Albumin/Globulin Ratio 0.6 (1.0-1.7) PROSPER MORALES APRN Jan 15, 2019 09:23
[2019-01-15] MEDS: MAGNESIUM OXIDE 400 MG TABLET PO SCH ×3 (09:35→21:31)
[2019-01-15] MEDS: ATENOLOL 25 MG TABLET. PO SCH (09:36)
[2019-01-15] MEDS: LACTOBACILLUS RHAMNOSUS GG 1 CAPSULE. PO SCH ×2 (09:36→21:31)
[2019-01-15] MEDS: hydrALAZINE 25 MG TABLET PO SCH ×3 (09:37→21:31)
[2019-01-15] MEDS: CEFDINIR 300 MG CAPSULE PO SCH (09:37)
[2019-01-15] MEDS: amLODIPine BESYLATE 10 MG TABLET PO SCH (09:38)
[2019-01-15] MEDS: CYANOCOBALAMIN (VITAMIN B-12) 1,000 MCG TABLET. PO SCH (09:38)
--- NOTE | 2019-01-15 10:39 | PDOC ---
IM PROGRESS NOTES- Subjective Subjective Patient still has blood in the urine. She is able to void without the Blair catheter. She denies any fever or headaches. Objective Vitals Vital Signs Date Time Temp Pulse Resp B/P (MAP) Pulse Ox O2 Delivery O2 Flow Rate FiO2 01/15/19 09:38 59 139/67 01/15/19 08:00 Room Air 01/15/19 07:50 98.2 17 96 98.2 Input & Output Intake and Output 01/15/19 07:00 Intake Total 1200 ml Output Total 1240 ml Balance -40 ml Intake Oral 1200 ml Output Urine Total 1240 ml # Voids 3 # Bowel Movements 1 Physical Exam Physical Exam General appearance - alert,well appearing, and in no distress and oriented to person, place, and time Mental Status - alert, oriented to person, place, and time, affect appropriate to mood Head - normal Chest -decreased breath sounds at bases Heart - S1 and S2 normal Abdomen - soft, nontender, nondistended, no masses or organomegaly Neurological - alert and oriented Musculoskeletal - no muscular tenderness noted Extremities - no pedal edema Skin - warm and dry Labs Laboratory Tests Test 01/13/19 18:25 01/14/19 04:36 01/15/19 03:00 White Blood Count 10.9 x10^3/uL (4.0-11.0) 10.2 x10^3/uL (4.0-11.0) 10.0 x10^3/uL (4.0-11.0) Red Blood Count 3.57 x10^6/uL (3.50-5.40) 3.48 x10^6/uL (3.50-5.40) 3.24 x10^6/uL (3.50-5.40) Hemoglobin 10.1 g/dL (12.0-15.5) 10.3 g/dL (12.0-15.5) 9.5 g/dL (12.0-15.5) Hematocrit 31.8 % (36.0-47.0) 30.8 % (36.0-47.0) 29.0 % (36.0-47.0) Mean Corpuscular Volume 89 fL (79-100) 89 fL (79-100) 89 fL (79-100) Mean Corpuscular Hemoglobin 28 pg (25-35) 30 pg (25-35) 29 pg (25-35) Mean Corpuscular Hemoglobin Concent 32 g/dL (31-37) 33 g/dL (31-37) 33 g/dL (31-37) Red Cell Distribution Width 14.0 % (11.5-14.5) 13.8 % (11.5-14.5) 13.9 % (11.5-14.5) Platelet Count 302 x10^3/uL (140-400) 261 x10^3/uL (140-400) 260 x10^3/uL (140-400) Neutrophils (%) (Auto) 74 % (31-73) 66 % (31-73) 58 % (31-73) Lymphocytes (%) (Auto) 18 % (24-48) 23 % (24-48) 31 % (24-48) Monocytes (%) (Auto) 5 % (0-9) 6 % (0-9) 7 % (0-9) Eosinophils (%) (Auto) 2 % (0-3) 3 % (0-3) 4 % (0-3) Basophils (%) (Auto) 1 % (0-3) 1 % (0-3) 1 % (0-3) Neutrophils # (Auto) 8.1 x10^3uL (1.8-7.7) 6.8 x10^3uL (1.8-7.7) 5.8 x10^3uL (1.8-7.7) Lymphocytes # (Auto) 2.0 x10^3/uL (1.0-4.8) 2.4 x10^3/uL (1.0-4.8) 3.1 x10^3/uL (1.0-4.8) Monocytes # (Auto) 0.5 x10^3/uL (0.0-1.1) 0.6 x10^3/uL (0.0-1.1) 0.6 x10^3/uL (0.0-1.1) Eosinophils # (Auto) 0.2 x10^3/uL (0.0-0.7) 0.3 x10^3/uL (0.0-0.7) 0.4 x10^3/uL (0.0-0.7) Basophils # (Auto) 0.1 x10^3/uL (0.0-0.2) 0.1 x10^3/uL (0.0-0.2) 0.1 x10^3/uL (0.0-0.2) Prothrombin Time 16.6 SEC (11.7-14.0) Prothromb Time International Ratio 1.4 (0.8-1.1) Activated Partial Thromboplast Time 44 SEC (24-38) Urine Collection Type Unknown Urine Color Red Urine Clarity Turbid Urine pH 7.5 Urine Specific Randolph 1.010 Urine Protein >=300 mg/dL (NEG-TRACE) Urine Glucose (UA) Negative mg/dL (NEG) Urine Ketones (Stick) Negative mg/dL (NEG) Urine Blood Large (NEG) Urine Nitrite Negative (NEG) Urine Bilirubin Negative (NEG) Urine Urobilinogen Dipstick 0.2 mg/dL (0.2 mg/dL) Urine Leukocyte Esterase Moderate (NEG) Urine RBC Tntc /HPF (0-2) Urine WBC Occ /HPF (0-4) Urine Squamous Epithelial Cells Occ /LPF Urine Bacteria 0 /HPF (0-FEW) Sodium Level 139 mmol/L (136-145) 145 mmol/L (136-145) 142 mmol/L (136-145) Potassium Level 3.7 mmol/L (3.5-5.1) 4.2 mmol/L (3.5-5.1) 4.2 mmol/L (3.5-5.1) Chloride Level 103 mmol/L (98-107) 110 mmol/L (98-107) 107 mmol/L (98-107) Carbon Dioxide Level 23 mmol/L (21-32) 24 mmol/L (21-32) 26 mmol/L (21-32) Anion Gap 13 (6-14) 11 (6-14) 9 (6-14) Blood Urea Nitrogen 32 mg/dL (7-20) 31 mg/dL (7-20) 25 mg/dL (7-20) Creatinine 3.5 mg/dL (0.6-1.0) 3.5 mg/dL (0.6-1.0) 3.1 mg/dL (0.6-1.0) Estimated GFR (Cockcroft-Gault) 12.8 12.8 14.8 BUN/Creatinine Ratio 9 (6-20) 8 (6-20) Glucose Level 138 mg/dL (70-99) 93 mg/dL (70-99) 90 mg/dL (70-99) Calcium Level 7.7 mg/dL (8.5-10.1) 7.7 mg/dL (8.5-10.1) 7.2 mg/dL (8.5-10.1) Total Bilirubin 0.3 mg/dL (0.2-1.0) 0.2 mg/dL (0.2-1.0) Aspartate Amino Transf (AST/SGOT) 15 U/L (15-37) 14 U/L (15-37) Alanine Aminotransferase (ALT/SGPT) 12 U/L (14-59) 12 U/L (14-59) Alkaline Phosphatase 129 U/L (46-116) 117 U/L (46-116) Total Protein 7.3 g/dL (6.4-8.2) 6.5 g/dL (6.4-8.2) Albumin 2.7 g/dL (3.4-5.0) 2.5 g/dL (3.4-5.0) Albumin/Globulin Ratio 0.6 (1.0-1.7) 0.6 (1.0-1.7) Laboratory Tests Test 01/15/19 03:00 White Blood Count 10.0 x10^3/uL (4.0-11.0) Red Blood Count 3.24 x10^6/uL (3.50-5.40) Hemoglobin 9.5 g/dL (12.0-15.5) Hematocrit 29.0 % (36.0-47.0) Mean Corpuscular Volume 89 fL (79-100) Mean Corpuscular Hemoglobin 29 pg (25-35) Mean Corpuscular Hemoglobin Concent 33 g/dL (31-37) Red Cell Distribution Width 13.9 % (11.5-14.5) Platelet Count 260 x10^3/uL (140-400) Neutrophils (%) (Auto) 58 % (31-73) Lymphocytes (%) (Auto) 31 % (24-48) Monocytes (%) (Auto) 7 % (0-9) Eosinophils (%) (Auto) 4 % (0-3) Basophils (%) (Auto) 1 % (0-3) Neutrophils # (Auto) 5.8 x10^3uL (1.8-7.7) Lymphocytes # (Auto) 3.1 x10^3/uL (1.0-4.8) Monocytes # (Auto) 0.6 x10^3/uL (0.0-1.1) Eosinophils # (Auto) 0.4 x10^3/uL (0.0-0.7) Basophils # (Auto) 0.1 x10^3/uL (0.0-0.2) Sodium Level 142 mmol/L (136-145) Potassium Level 4.2 mmol/L (3.5-5.1) Chloride Level 107 mmol/L (98-107) Carbon Dioxide Level 26 mmol/L (21-32) Anion Gap 9 (6-14) Blood Urea Nitrogen 25 mg/dL (7-20) Creatinine 3.1 mg/dL (0.6-1.0) Estimated GFR (Cockcroft-Gault) 14.8 BUN/Creatinine Ratio 8 (6-20) Glucose Level 90 mg/dL (70-99) Calcium Level 7.2 mg/dL (8.5-10.1) Total Bilirubin 0.2 mg/dL (0.2-1.0) Aspartate Amino Transf (AST/SGOT) 14 U/L (15-37) Alanine Aminotransferase (ALT/SGPT) 12 U/L (14-59) Alkaline Phosphatase 117 U/L (46-116) Total Protein 6.5 g/dL (6.4-8.2) Albumin 2.5 g/dL (3.4-5.0) Albumin/Globulin Ratio 0.6 (1.0-1.7) Meds Current Medications Atorvastatin Calcium (Lipitor) 20 mg HS PO Last administered on 01/14/19at 21:19 ; Start 01/14/19 at 21:00 Famotidine (Pepcid) 20 mg HS PO ; Start 01/14/19 at 21:00; Stop 01/14/19 at 21:00 ; Status DC Famotidine (Pepcid) 20 mg Q48H PO Last administered on 01/14/19at 21:19; Start at 21:00 Lactobacillus Rhamnosus (Culturelle) 1 cap BID PO Last administered on at 09:36; Start 01/14/19 at 21:00 Assessment Assessment 1. Hematuria secondary to Eliquis and possible Blair catheter trauma. 2. Acute renal failure with chronic kidney disease stage 3 secondary to obstructive uropathy. During the last admission, left ureteral stent was replaced. 3. Acute hypertensive crisis. 4. Chronic obstructive pulmonary disease. 5. Systolic congestive heart failure with ejection fraction of 30%. 6. Left hydronephrosis, severe. 7. Right atrophic kidney. 8. Anemia, B12 deficiency. 9. Diverticulosis. 10. History of left-sided ischemic colitis. 11. Peripheral vascular disease with history of multiple stents. 12. Right upper lobe nodule 1.5 cm. 13. Hyperlipidemia 14. Moderate aortic regurgitation. 15. Pulmonary hypertension. 16. Chronic hypomagnesemia. 17. Hypothyroidism. PLAN: I will restart IV fluids. Consult Dr. Flores for urology evaluation and management. Continue IV fluids. If the clots get worse, then she may need a continuous bladder irrigation, but currently urine appears to be flowing well with reddish discoloration. I will start her on IV fluids and recheck labs in a.m. The patient was started on hydralazine 25 mg 3 times a day during the last admission and hopefully with her medications, her blood pressure will continue to improve. I will discontinue Eliquis and also hold aspirin for now. Restart oral cefdinir. For details, please refer to the orders. We will monitor the swelling in the left arm, which is improving. She has some bruising also in the left arm near the brachial fossa. For details, please refer to the orders. Acute renal failure with chronic kidney disease stage III- proving. Creatinine has decreased to 3.1. Left upper extremity DVT- clinically improving. No swelling noted to have some bruising. Hematuria- clinically improving. Continue IV fluids. If stable will discharge her home tomorrow. Plan Plan For more details regarding further plans, please refer to the orders. PARIS CASTILLO MD Jan 15, 2019 10:39
[2019-01-15] MEDS: IV DEXTROSE 5 %-0.45 % NACL 1,000 ML IV SCH (13:13)
--- NOTE | 2019-01-15 13:13 | PDOC ---
Renal-Progress Notes Subjective Notes Notes FEELS WELL History of Present Illness Hx of present illness STABLE Vitals Vitals Vital Signs Date Time Temp Pulse Resp B/P (MAP) Pulse Ox O2 Delivery O2 Flow Rate FiO2 01/15/19 11:00 98.7 64 17 160/67 (98) 96 Room Air 98.7 Weight Weight [ ] I.O. Intake and Output Intake and Output 01/15/19 07:00 Intake Total 1200 ml Output Total 1240 ml Balance -40 ml Intake Oral 1200 ml Output Urine Total 1240 ml # Voids 3 # Bowel Movements 1 Labs Labs Laboratory Tests Test 01/15/19 03:00 White Blood Count 10.0 x10^3/uL (4.0-11.0) Red Blood Count 3.24 x10^6/uL (3.50-5.40) Hemoglobin 9.5 g/dL (12.0-15.5) Hematocrit 29.0 % (36.0-47.0) Mean Corpuscular Volume 89 fL (79-100) Mean Corpuscular Hemoglobin 29 pg (25-35) Mean Corpuscular Hemoglobin Concent 33 g/dL (31-37) Red Cell Distribution Width 13.9 % (11.5-14.5) Platelet Count 260 x10^3/uL (140-400) Neutrophils (%) (Auto) 58 % (31-73) Lymphocytes (%) (Auto) 31 % (24-48) Monocytes (%) (Auto) 7 % (0-9) Eosinophils (%) (Auto) 4 % (0-3) Basophils (%) (Auto) 1 % (0-3) Neutrophils # (Auto) 5.8 x10^3uL (1.8-7.7) Lymphocytes # (Auto) 3.1 x10^3/uL (1.0-4.8) Monocytes # (Auto) 0.6 x10^3/uL (0.0-1.1) Eosinophils # (Auto) 0.4 x10^3/uL (0.0-0.7) Basophils # (Auto) 0.1 x10^3/uL (0.0-0.2) Sodium Level 142 mmol/L (136-145) Potassium Level 4.2 mmol/L (3.5-5.1) Chloride Level 107 mmol/L (98-107) Carbon Dioxide Level 26 mmol/L (21-32) Anion Gap 9 (6-14) Blood Urea Nitrogen 25 mg/dL (7-20) Creatinine 3.1 mg/dL (0.6-1.0) Estimated GFR (Cockcroft-Gault) 14.8 BUN/Creatinine Ratio 8 (6-20) Glucose Level 90 mg/dL (70-99) Calcium Level 7.2 mg/dL (8.5-10.1) Total Bilirubin 0.2 mg/dL (0.2-1.0) Aspartate Amino Transf (AST/SGOT) 14 U/L (15-37) Alanine Aminotransferase (ALT/SGPT) 12 U/L (14-59) Alkaline Phosphatase 117 U/L (46-116) Total Protein 6.5 g/dL (6.4-8.2) Albumin 2.5 g/dL (3.4-5.0) Albumin/Globulin Ratio 0.6 (1.0-1.7) Review of Systems Constitutional: yes: alert, oriented Ears/Nose/Throat: Yes: no symptom reported Eyes: Yes: no symptom reported Pulmonary: Yes no symptom reported Cardiovascular: Yes no symptom reported Gastrointestional: Yes: no symptom reported Genitourinary: Yes: hematuria Musculoskeletal: Yes: no symptom reported Skin: Yes no symptom reported Psychiatric/Neurological: Yes: no symptom reported Endocrine: Yes: no symptom reported Physical Exam General Appearance: no apparent distress Skin: warm Respiratory: decreased breath sounds Heart: S1S2 Abdomen: soft Genitourinary: bladder flat Extremities: pulses present Neurology: alert Musculoskeletal: No pain Assessment Assessment IMP HEMATURIA DUE TO ANTICOAGULATION AND BEDOYA ALESSIA BETTER WITH CR OF 3.1 SEVERE LEFT HYDRONEPHROSIS-S/P LEFT URETERAL STENT CKD STAGE 3 WITH CR OF 1.4-2.0 AT BASELINE NON FUNCTIONING ATROPHIED RIGHT KIDNEY HX OF CM WITH EF OF 30%-COMPENSATED HD OF HTN PLAN HYDRATION AVOID NEPHROTOXINS BEDOYA OUT AND VOIDING WELL EXPECT SOME MORE IMPROVEMENT IN CR IN TIME - PROB HAS SOME DEGREE OF ATN NOW IT IS POSSIBLE HER NEW CR BASELINE WILL BE HIGHER THAN PREVIOUS LEVEL OF 1.4-2.0 SHE WILL FOLLOW UP IN THE OFFICE ONCE DISCHARGED D/W UROLOGY ALFREDITO JONHSON MD Jan 15, 2019 13:13
--- NOTE | 2019-01-15 15:46 | NUR ---
SW responding to a referral admission. Chart reviewed and discussed with RN. SW spoke with pt as well as pt was discharged with [facility] but was admitted before being seen by HH. Pt reports she lives at home with spouse and declined HH services. Discussed with Frieda from [facility] [place]. No other SW needs noted at this time. Will continue to evaluate needs.
[2019-01-15] MEDS: ATORVASTATIN CALCIUM 20 MG TABLET PO SCH (21:31)
[2019-01-16] MEDS: IV DEXTROSE 5 %-0.45 % NACL 1,000 ML IV SCH (02:23)
[2019-01-16 03:00] VITALS: BP 150/65
[2019-01-16 06:36] LABS: BASO # 0.1 x10^3/uL (0.0-0.2); BASO % 1 % (0-3); EOS # 0.3 x10^3/uL (0.0-0.7); EOS % 3 % (0-3); HEMATOCRIT 29.4 % (36.0-47.0); LYMPH # 2.5 x10^3/uL (1.0-4.8); LYMPH % 23 % (24-48); MEAN CORPUSCULAR HEMOGLOBIN 30 pg (25-35); MEAN CORPUSCULAR HGB CONC 34 g/dL (31-37); MEAN CORPUSCULAR VOLUME 89 fL (79-100); MONO # 0.7 x10^3/uL (0.0-1.1); MONO % 7 % (0-9); NEUT # 7.1 x10^3uL (1.8-7.7); NEUT % 66 % (31-73); PLATELET COUNT 252 x10^3/uL (140-400); RED BLOOD COUNT 3.31 x10^6/uL (3.50-5.40); RED CELL DISTRIBUTION WIDTH 13.8 % (11.5-14.5); WHITE BLOOD COUNT 10.7 x10^3/uL (4.0-11.0)
[2019-01-16 06:52] LABS: CALCIUM 7.3 mg/dL (8.5-10.1); CREATININE 2.7 mg/dL (0.6-1.0); GFR 17.3; MAGNESIUM 1.5 mg/dL (1.8-2.4); POTASSIUM 4.2 mmol/L (3.5-5.1)
[2019-01-16 07:15] VITALS: BP 145/56
[2019-01-16] MEDS: LEVOTHYROXINE 75 MCG TABLET PO SCH (08:31)
--- NOTE | 2019-01-16 09:56 | DISCH ---
DISCHARGE INSTRUCTIONS Condition on Discharge Condition on Discharge: Stable Activity After Discharge Activity Instructions for Disc: Resume previous activity Weight Bearing Status after Di: No restrictions Diet after Discharge Diet after Discharge: Cardiac Additional Diet Restrictions: low residual Diet Texture: Regular Liquid Texture: Thin Liquid Checks after Discharge Checks after discharge: Check blood press - daily Contacting the DRKimberly after DC Call your doctor for: Concerns you may have Follow-Up Follow up with: see Dr. PARIS Henderson in 5 days Treatment/Equipment after DC Adaptive Equipment Issued: PARIS Blair MD Jan 16, 2019 09:56
--- NOTE | 2019-01-16 09:57 | PDOC ---
SUBJECTIVE Subjective Pt continues to do well, no complaints. Urine is now varying between a very light pink and a yellow, more normal color. No dysuria or pain. Would really like to go home. OBJECTIVE Objective Physical Exam: General appearance: Alert and Oriented Head: Normocephalic, without obvious abnormality Eyes: conjunctivae/corneas clear. PERRL, EOM's intact. Fundi benign Back: negative, no CVA tenderness bilaterally Lungs: Regular respirations, non labored breathing Abdomen: soft, non-tender. No masses, no organomegaly Vital Signs Vital Signs Date Time Temp Pulse Resp B/P (MAP) Pulse Ox O2 Delivery O2 Flow Rate FiO2 01/16/19 07:15 98.2 66 18 145/56 (85) 96 Room Air 98.2 01/16/19 03:00 98.1 64 18 150/65 (93) 96 Room Air 98.1 01/15/19 23:00 98.3 69 18 133/54 (80) 98 Room Air 98.3 01/15/19 21:31 65 166/73 01/15/19 20:30 97.9 85 20 114/54 (74) 95 Nasal Cannula 4.0 97.9 01/15/19 20:00 Room Air 01/15/19 19:00 98.4 65 18 166/73 (104) 96 Room Air 98.4 01/15/19 15:28 64 149/92 01/15/19 15:00 99.2 64 18 149/92 (111) 95 Room Air 99.2 01/15/19 11:00 98.7 64 17 160/67 (98) 96 Room Air 98.7 I & O Intake and Output 01/16/19 07:00 Intake Total 1260 ml Output Total 241 ml Balance 1019 ml Intake Oral 1260 ml Output Urine Total 241 ml # Voids 5 PHYSICAL EXAM Physical Exam Physical Exam: General appearance: Alert and Oriented Head: Normocephalic, without obvious abnormality Eyes: conjunctivae/corneas clear. PERRL, EOM's intact. Fundi benign Back: negative, no CVA tenderness bilaterally Lungs: Regular respirations, non labored breathing Abdomen: soft, non-tender. No masses, no organomegaly ASSESSMENT/PLAN Assessment/Plan Urine continues to improve as expected. She has a follow up appointment scheduled with Dr. Bryson of [facility] on 01/22 at 250 pm at [facility] location. Pt given appointment card. Ok to discharge from a Urology perspective. Will sign off at this time, but please call with questions or changes in patient condition. COMMENT Lab Laboratory Tests Test 01/16/19 05:17 White Blood Count 10.7 x10^3/uL (4.0-11.0) Red Blood Count 3.31 x10^6/uL (3.50-5.40) Hemoglobin 10.0 g/dL (12.0-15.5) Hematocrit 29.4 % (36.0-47.0) Mean Corpuscular Volume 89 fL (79-100) Mean Corpuscular Hemoglobin 30 pg (25-35) Mean Corpuscular Hemoglobin Concent 34 g/dL (31-37) Red Cell Distribution Width 13.8 % (11.5-14.5) Platelet Count 252 x10^3/uL (140-400) Neutrophils (%) (Auto) 66 % (31-73) Lymphocytes (%) (Auto) 23 % (24-48) Monocytes (%) (Auto) 7 % (0-9) Eosinophils (%) (Auto) 3 % (0-3) Basophils (%) (Auto) 1 % (0-3) Neutrophils # (Auto) 7.1 x10^3uL (1.8-7.7) Lymphocytes # (Auto) 2.5 x10^3/uL (1.0-4.8) Monocytes # (Auto) 0.7 x10^3/uL (0.0-1.1) Eosinophils # (Auto) 0.3 x10^3/uL (0.0-0.7) Basophils # (Auto) 0.1 x10^3/uL (0.0-0.2) Sodium Level 146 mmol/L (136-145) Potassium Level 4.2 mmol/L (3.5-5.1) Chloride Level 109 mmol/L (98-107) Carbon Dioxide Level 23 mmol/L (21-32) Anion Gap 14 (6-14) Blood Urea Nitrogen 22 mg/dL (7-20) Creatinine 2.7 mg/dL (0.6-1.0) Estimated GFR (Cockcroft-Gault) 17.3 Glucose Level 94 mg/dL (70-99) Calcium Level 7.3 mg/dL (8.5-10.1) Magnesium Level 1.5 mg/dL (1.8-2.4) PROSPER MORALES APRN Jan 16, 2019 09:57
[2019-01-16] MEDS: MAGNESIUM OXIDE 400 MG TABLET PO SCH ×2 (10:00→15:29)
[2019-01-16] MEDS: amLODIPine BESYLATE 10 MG TABLET PO SCH (10:00)
[2019-01-16] MEDS: LACTOBACILLUS RHAMNOSUS GG 1 CAPSULE. PO SCH (10:00)
[2019-01-16] MEDS: hydrALAZINE 25 MG TABLET PO SCH ×2 (10:00→15:29)
[2019-01-16] MEDS ORDERED: MAGNESIUM SULFATE 4GM 100 ML IV ONE (10:00)
[2019-01-16] MEDS: CYANOCOBALAMIN (VITAMIN B-12) 1,000 MCG TABLET. PO SCH (10:01)
[2019-01-16] MEDS: ATENOLOL 25 MG TABLET. PO SCH (10:01)
[2019-01-16] MEDS: CEFDINIR 300 MG CAPSULE PO SCH (10:01)
--- NOTE | 2019-01-16 10:46 | PDOC3 ---
DISCHARGE SUMMARY Date of Admission Date of Admission Date of Admission: Jan 13, 2019 at 19:25 Date of Discharge Date of Discharge 01/16/19 Primary Diagnosis Primary Diagnosis 1. Hematuria secondary to Eliquis and possible Blair catheter trauma. 2. Acute renal failure with chronic kidney disease stage 3 secondary to obstructive uropathy. During the last admission, left ureteral stent was replaced. 3. Acute hypertensive crisis. 4. Chronic obstructive pulmonary disease. 5. Systolic congestive heart failure with ejection fraction of 30%. 6. Left hydronephrosis, severe. 7. Right atrophic kidney. 8. Anemia, B12 deficiency. 9. Diverticulosis. 10. History of left-sided ischemic colitis. 11. Peripheral vascular disease with history of multiple stents. 12. Right upper lobe nodule 1.5 cm. 13. Hyperlipidemia 14. Moderate aortic regurgitation. 15. Pulmonary hypertension. 16. Chronic hypomagnesemia. 17. Hypothyroidism. 18. DVT left upper extremity Consults Consults Tresa Flores MD Labs Labs Laboratory Tests Test 01/13/19 18:25 01/14/19 04:36 01/15/19 03:00 01/16/19 05:17 White Blood Count 10.9 x10^3/uL (4.0-11.0) 10.2 x10^3/uL (4.0-11.0) 10.0 x10^3/uL (4.0-11.0) 10.7 x10^3/uL (4.0-11.0) Red Blood Count 3.57 x10^6/uL (3.50-5.40) 3.48 x10^6/uL (3.50-5.40) 3.24 x10^6/uL (3.50-5.40) 3.31 x10^6/uL (3.50-5.40) Hemoglobin 10.1 g/dL (12.0-15.5) 10.3 g/dL (12.0-15.5) 9.5 g/dL (12.0-15.5) 10.0 g/dL (12.0-15.5) Hematocrit 31.8 % (36.0-47.0) 30.8 % (36.0-47.0) 29.0 % (36.0-47.0) 29.4 % (36.0-47.0) Mean Corpuscular Volume 89 fL (79-100) 89 fL (79-100) 89 fL (79-100) 89 fL ( 79-100) Mean Corpuscular Hemoglobin 28 pg (25-35) 30 pg (25-35) 29 pg (25-35) 30 pg ( 25-35) Mean Corpuscular Hemoglobin Concent 32 g/dL (31-37) 33 g/dL (31-37) 33 g/dL (31-37) 34 g/dL (31-37) Red Cell Distribution Width 14.0 % (11.5-14.5) 13.8 % (11.5-14.5) 13.9 % (11.5-14.5) 13.8 % (11.5-14.5) Platelet Count 302 x10^3/uL (140-400) 261 x10^3/uL (140-400) 260 x10^3/uL (140-400) 252 x10^3/uL (140-400) Neutrophils (%) (Auto) 74 % (31-73) 66 % (31-73) 58 % (31-73) 66 % (31-73) Lymphocytes (%) (Auto) 18 % (24-48) 23 % (24-48) 31 % (24-48) 23 % (24-48) Monocytes (%) (Auto) 5 % (0-9) 6 % (0-9) 7 % (0-9) 7 % (0-9) Eosinophils (%) (Auto) 2 % (0-3) 3 % (0-3) 4 % (0-3) 3 % (0-3) Basophils (%) (Auto) 1 % (0-3) 1 % (0-3) 1 % (0-3) 1 % (0-3) Neutrophils # (Auto) 8.1 x10^3uL (1.8-7.7) 6.8 x10^3uL (1.8-7.7) 5.8 x10^3uL (1.8-7.7) 7.1 x10^3uL (1.8-7.7) Lymphocytes # (Auto) 2.0 x10^3/uL (1.0-4.8) 2.4 x10^3/uL (1.0-4.8) 3.1 x10^3/uL (1.0-4.8) 2.5 x10^3/uL (1.0-4.8) Monocytes # (Auto) 0.5 x10^3/uL (0.0-1.1) 0.6 x10^3/uL (0.0-1.1) 0.6 x10^3/uL (0.0-1.1) 0.7 x10^3/uL (0.0-1.1) Eosinophils # (Auto) 0.2 x10^3/uL (0.0-0.7) 0.3 x10^3/uL (0.0-0.7) 0.4 x10^3/uL (0.0-0.7) 0.3 x10^3/uL (0.0-0.7) Basophils # (Auto) 0.1 x10^3/uL (0.0-0.2) 0.1 x10^3/uL (0.0-0.2) 0.1 x10^3/uL (0.0-0.2) 0.1 x10^3/uL (0.0-0.2) Prothrombin Time 16.6 SEC (11.7-14.0) Prothromb Time International Ratio 1.4 (0.8-1.1) Activated Partial Thromboplast Time 44 SEC (24-38) Urine Collection Type Unknown Urine Color Red Urine Clarity Turbid Urine pH 7.5 Urine Specific Eads 1.010 Urine Protein >=300 mg/dL (NEG-TRACE) Urine Glucose (UA) Negative mg/dL (NEG) Urine Ketones (Stick) Negative mg/dL (NEG) Urine Blood Large (NEG) Urine Nitrite Negative (NEG) Urine Bilirubin Negative (NEG) Urine Urobilinogen Dipstick 0.2 mg/dL (0.2 mg/dL) Urine Leukocyte Esterase Moderate (NEG) Urine RBC Tntc /HPF (0-2) Urine WBC Occ /HPF (0-4) Urine Squamous Epithelial Cells Occ /LPF Urine Bacteria 0 /HPF (0-FEW) Sodium Level 139 mmol/L (136-145) 145 mmol/L (136-145) 142 mmol/L (136-145) 146 mmol/L (136-145) Potassium Level 3.7 mmol/L (3.5-5.1) 4.2 mmol/L (3.5-5.1) 4.2 mmol/L (3.5-5.1) 4.2 mmol/L (3.5-5.1) Chloride Level 103 mmol/L (98-107) 110 mmol/L (98-107) 107 mmol/L (98-107) 109 mmol/L (98-107) Carbon Dioxide Level 23 mmol/L (21-32) 24 mmol/L (21-32) 26 mmol/L (21-32) 23 mmol/L (21-32) Anion Gap 13 (6-14) 11 (6-14) 9 (6-14) 14 (6-14) Blood Urea Nitrogen 32 mg/dL (7-20) 31 mg/dL (7-20) 25 mg/dL (7-20) 22 mg/dL (7-20) Creatinine 3.5 mg/dL (0.6-1.0) 3.5 mg/dL (0.6-1.0) 3.1 mg/dL (0.6-1.0) 2.7 mg/dL (0.6-1.0) Estimated GFR (Cockcroft-Gault) 12.8 12.8 14.8 17.3 BUN/Creatinine Ratio 9 (6-20) 8 (6-20) Glucose Level 138 mg/dL (70-99) 93 mg/dL (70-99) 90 mg/dL (70-99) 94 mg/dL (70-99) Calcium Level 7.7 mg/dL (8.5-10.1) 7.7 mg/dL (8.5-10.1) 7.2 mg/dL (8.5-10.1) 7.3 mg/dL (8.5-10.1) Total Bilirubin 0.3 mg/dL (0.2-1.0) 0.2 mg/dL (0.2-1.0) Aspartate Amino Transf (AST/SGOT) 15 U/L (15-37) 14 U/L (15-37) Alanine Aminotransferase (ALT/SGPT) 12 U/L (14-59) 12 U/L (14-59) Alkaline Phosphatase 129 U/L (46-116) 117 U/L (46-116) Total Protein 7.3 g/dL (6.4-8.2) 6.5 g/dL (6.4-8.2) Albumin 2.7 g/dL (3.4-5.0) 2.5 g/dL (3.4-5.0) Albumin/Globulin Ratio 0.6 (1.0-1.7) 0.6 (1.0-1.7) Magnesium Level 1.5 mg/dL (1.8-2.4) Brief hospital course Brief hospital course This is a 73-year-old female who was just discharged from the hospital on 01/12 after being treated for acute obstructive uropathy with severe left hydronephrosis and a creatinine of 7.1, underwent a replacement of the ureteral stent and a placement of a Blair catheter, and her creatinine had come down from 7.1-3.8, and it was thought they will continue to improve as outpatient. So, the patient was discharged home. However, before the discharge, staff noted that she had swelling of the left upper extremity and so a venous Doppler was ordered that showed nonocclusive thrombus of the left brachial vein. Because of that, it was discussed with the pharmacist who recommended Eliquis 10 mg twice daily, but I decreased it to 5 mg twice a day and prescription was given to the patient. However, the patient went home and was quite active and moved around a lot and then next day she started noticing blood in the Blair catheter, so she came to the Emergency Room because of the hematuria. The patient is admitted for further evaluation and management. For more details regarding the past history, family history, social history, surgical history and other details, please refer to History and Physical. IV fluids restarted. Consult Dr. Flores for urology evaluation and management. Continue IV fluids. If the clots get worse, then she may need a continuous bladder irrigation, but currently urine appears to be flowing well with reddish discoloration. I will start her on IV fluids and recheck labs in a.m. The patient was started on hydralazine 25 mg 3 times a day during the last admission and hopefully with her medications, her blood pressure will continue to improve. I will discontinue Eliquis and also hold aspirin for now. Restart oral cefdinir. For details, please refer to the orders. We will monitor the swelling in the left arm, which is improving. She has some bruising also in the left arm near the brachial fossa. For details, please refer to the orders. Acute renal failure with chronic kidney disease stage III- proving. Creatinine has decreased to 2.7. Left upper extremity DVT- clinically improving. No swelling,is noted to have some bruising. Hematuria- clinically improving. Continue IV fluids. If stable will discharge her home today. Hypomagnesemia- replace. Continue Cefdinir for 3 days. Medications Medications reviewed and reconciled for discharge. Allergy Allergies Coded Allergies Type Severity Reaction Last Updated Verified acetaminophen Allergy Intermediate 11/01/18 No codeine Allergy Intermediate hives 12/15/14 Yes ezetimibe Allergy Intermediate Rash 03/06/15 Yes hydrocodone Allergy Intermediate 01/10/19 Yes Follow up in 5 days. DISPOSITION: Home Comments Discharge Management - 35 minutes. For other details please refer to discharge instructions PARIS CASTILLO MD Jan 16, 2019 10:46
[2019-01-16 11:00] VITALS: BP 142/43
--- NOTE | 2019-01-16 12:32 | PDOC ---
Renal-Progress Notes Subjective Notes Notes FEELS WELL History of Present Illness Hx of present illness BETTER Vitals Vitals Vital Signs Date Time Temp Pulse Resp B/P (MAP) Pulse Ox O2 Delivery O2 Flow Rate FiO2 01/16/19 11:00 97.4 62 20 142/43 (76) 97 Room Air 97.4 01/15/19 20:30 4.0 Weight Weight [ ] I.O. Intake and Output Intake and Output 01/16/19 07:00 Intake Total 1260 ml Output Total 241 ml Balance 1019 ml Intake Oral 1260 ml Output Urine Total 241 ml # Voids 5 Labs Labs Laboratory Tests Test 01/16/19 05:17 White Blood Count 10.7 x10^3/uL (4.0-11.0) Red Blood Count 3.31 x10^6/uL (3.50-5.40) Hemoglobin 10.0 g/dL (12.0-15.5) Hematocrit 29.4 % (36.0-47.0) Mean Corpuscular Volume 89 fL (79-100) Mean Corpuscular Hemoglobin 30 pg (25-35) Mean Corpuscular Hemoglobin Concent 34 g/dL (31-37) Red Cell Distribution Width 13.8 % (11.5-14.5) Platelet Count 252 x10^3/uL (140-400) Neutrophils (%) (Auto) 66 % (31-73) Lymphocytes (%) (Auto) 23 % (24-48) Monocytes (%) (Auto) 7 % (0-9) Eosinophils (%) (Auto) 3 % (0-3) Basophils (%) (Auto) 1 % (0-3) Neutrophils # (Auto) 7.1 x10^3uL (1.8-7.7) Lymphocytes # (Auto) 2.5 x10^3/uL (1.0-4.8) Monocytes # (Auto) 0.7 x10^3/uL (0.0-1.1) Eosinophils # (Auto) 0.3 x10^3/uL (0.0-0.7) Basophils # (Auto) 0.1 x10^3/uL (0.0-0.2) Sodium Level 146 mmol/L (136-145) Potassium Level 4.2 mmol/L (3.5-5.1) Chloride Level 109 mmol/L (98-107) Carbon Dioxide Level 23 mmol/L (21-32) Anion Gap 14 (6-14) Blood Urea Nitrogen 22 mg/dL (7-20) Creatinine 2.7 mg/dL (0.6-1.0) Estimated GFR (Cockcroft-Gault) 17.3 Glucose Level 94 mg/dL (70-99) Calcium Level 7.3 mg/dL (8.5-10.1) Magnesium Level 1.5 mg/dL (1.8-2.4) Micro Micro Microbiology 01/13/19 Urine Culture - Final, Complete 01/13/19 Urine Culture Result 1 (SCOTT) - Final, Complete Review of Systems Constitutional: yes: alert, oriented Ears/Nose/Throat: Yes: no symptom reported Eyes: Yes: no symptom reported Pulmonary: Yes no symptom reported Cardiovascular: Yes no symptom reported Gastrointestional: Yes: no symptom reported Genitourinary: Yes: hematuria Musculoskeletal: Yes: no symptom reported Skin: Yes no symptom reported Psychiatric/Neurological: Yes: no symptom reported Endocrine: Yes: no symptom reported Physical Exam General Appearance: no apparent distress Skin: warm Respiratory: decreased breath sounds Heart: S1S2 Abdomen: soft Genitourinary: bladder flat Extremities: pulses present Neurology: alert Musculoskeletal: No pain Assessment Assessment IMP HEMATURIA DUE TO ANTICOAGULATION AND BEDOYA-RESOLVED ALESSIA BETTER WITH CR OF 2.7 SEVERE LEFT HYDRONEPHROSIS-S/P LEFT URETERAL STENT CKD STAGE 3 WITH CR OF 1.4-2.0 AT BASELINE NON FUNCTIONING ATROPHIED RIGHT KIDNEY HX OF CM WITH EF OF 30%-COMPENSATED HD OF HTN PLAN D/C IVF'S AVOID NEPHROTOXINS BEDOYA OUT AND VOIDING WELL EXPECT SOME MORE IMPROVEMENT IN CR IN TIME - PROB HAS SOME DEGREE OF ATN NOW IT IS POSSIBLE HER NEW CR BASELINE WILL BE HIGHER THAN PREVIOUS LEVEL OF 1.4-2.0 SHE WILL FOLLOW UP IN THE OFFICE ONCE DISCHARGED ALFREDITO JOHNSON MD Jan 16, 2019 12:32
[2019-01-16 15:13] VITALS: BP 138/55
[2019-01-16 15:29] VITALS: BP 138/55
--- NOTE | 2019-01-16 16:20 | NUR ---
Discharge Note: EVIN GARCIA [address] [place] [address] Discharge instructions and discharge home medications reviewed with Patient and a copy given. All questions have been answered and understanding verbalized. The following instructions and handouts were given: UTI, hematuria Discontinued lines and drains: peripheral IV. Patient discharged to Home or Self Care with Spouse via Wheelchair
== END 2019-01-16 16:00 | disposition home or self-care (01) | DRG 698 ==
LOC: ER 17:25 → 5 NORTH 19:25
PROVIDERS: ADMIT Internal Medicine; ATTEND Internal Medicine
DX: T83.83XA Hemorrhage due to genitourinary prosthetic devices, implants and grafts, initial encounter (principal); E43 Unspecified severe protein-calorie malnutrition; N17.9 Acute kidney failure, unspecified; D68.32 Hemorrhagic disorder due to extrinsic circulating anticoagulants; I13.0 Hypertensive heart and chronic kidney disease with heart failure and stage 1 through stage 4 chronic kidney disease, or unspecified chronic kidney disease; I50.22 Chronic systolic (congestive) heart failure; I16.9 Hypertensive crisis, unspecified; N13.30 Unspecified hydronephrosis; I82.622 Acute embolism and thrombosis of deep veins of left upper extremity; J44.9 Chronic obstructive pulmonary disease, unspecified; D51.9 Vitamin B12 deficiency anemia, unspecified; E11.51 Type 2 diabetes mellitus with diabetic peripheral angiopathy without gangrene; E83.42 Hypomagnesemia; I27.20 Pulmonary hypertension, unspecified; K57.90 Diverticulosis of intestine, part unspecified, without perforation or abscess without bleeding; R31.0 Gross hematuria; N18.3 Chronic kidney disease, stage 3 (moderate); E78.5 Hyperlipidemia, unspecified; I35.1 Nonrheumatic aortic (valve) insufficiency; E03.9 Hypothyroidism, unspecified; F17.200 Nicotine dependence, unspecified, uncomplicated; N26.1 Atrophy of kidney (terminal); T45.525A Adverse effect of antithrombotic drugs, initial encounter; Y84.6 Urinary catheterization as the cause of abnormal reaction of the patient, or of later complication, without mention of misadventure at the time of the procedure; Z88.6 Allergy status to analgesic agent; Z88.5 Allergy status to narcotic agent; Z88.8 Allergy status to other drugs, medicaments and biological substances; Z79.899 Other long term (current) drug therapy; Z82.49 Family history of ischemic heart disease and other diseases of the circulatory system; Z82.3 Family history of stroke; Y92.89 Other specified places as the place of occurrence of the external cause
CPT/HCPCS: 36415; 80048; 80053; 81001; 83735; 85025; 85610; 85730; 87086; J3475; 99285-25

== ENCOUNTER 2020-02-16 09:25 | Emergency (ER) | payer MEDICARE ==
[~2020-02-16] VITALS: Ht 152.4 cm; Wt 45.0 kg
[~2020-02-16 09:25] MED LIST changes: +CYAN-25 PO; -CYAN10005 PO; -PANT40TA3 PO; -PANT40TA5 PO; +PANT40TA77 PO
--- NOTE | 2020-02-16 09:47 | PHYS DOC ---
Past Medical History Past Medical History: COPD, Hypertension, Kidney Stone, Renal Failure Additional Past Medical Histor: "poor circulation" Past Surgical History: Other Additional Past Surgical Histo: stents placed in legs, knee surgery Smoking Status: Current Some Day Smoker Alcohol Use: Occasionally Drug Use: None General Adult EDM: Chief Complaint: ABDOMINAL PAIN HPI: HPI: Patient is a 74 year old female who presented to ER today for evaluation of epigastric abdominal pain, nausea and vomiting. Patient describes the pain as burning sensation, she felt like her stomach is on fire. Patient denies any chest pain, no trouble breathing. Patient denies any diarrhea. Patient denies any cough or fever. Patient is a smoker, denies any history of diabetes. Patient has history of hypertension. Patient has no history of coronary artery disease. Patient had not been taking her blood pressure medication for 3 days because she forgot. Patient has history of chronic kidney stone, with renal failure. Patient has stent placed in her left kidney couple months ago by Dr. Flores at [facility]. Patient is supposed to have the stent replaced every 3 months. Review of Systems: Review of Systems: Constitutional: Denies fever or chills. [] Eyes: Denies change in visual acuity. [] HENT: Denies nasal congestion or sore throat. [] Respiratory: Denies cough or shortness of breath. [] Cardiovascular: Denies chest pain or edema. [] GI: Positive for abdominal pain, nausea, vomiting, no diarrhea. : Denies dysuria. [] Musculoskeletal: Denies back pain or joint pain. [] Integument: Denies rash. [] Neurologic: Denies headache, focal weakness or sensory changes. [] Endocrine: Denies polyuria or polydipsia. [] Lymphatic: Denies swollen glands. [] Psychiatric: Denies depression or anxiety. [] Heart Score: Risk Factors: Risk Factors: DM, Current or recent (<one month) smoker, HTN, HLP, family history of CAD, obesity. Risk Scores: Score 0 - 3: 2.5% MACE over next 6 weeks - Discharge Home Score 4 - 6: 20.3% MACE over next 6 weeks - Admit for Clinical Observation Score 7 - 10: 72.7% MACE over next 6 weeks - Early Invasive Strategies Allergies: Allergies: Allergies Coded Allergies Type Severity Reaction Last Updated Verified acetaminophen Allergy Intermediate 11/01/18 No codeine Allergy Intermediate hives 3/2/15 Yes ezetimibe Allergy Intermediate Rash 03/06/15 Yes hydrocodone Allergy Intermediate 01/10/19 Yes Physical Exam: PE: Constitutional: Well developed, well nourished, no acute distress, non-toxic appearance. [] HENT: Normocephalic, atraumatic, bilateral external ears normal, oral mucosa is dried, no oral exudates, nose normal. [] Eyes: PERRLA, EOMI, conjunctiva normal, no discharge. [] Neck: Normal range of motion, no tenderness, supple, no stridor. [] Cardiovascular:Heart rate regular rhythm, no murmur [] Lungs & Thorax: Bilateral breath sounds clear to auscultation [] Abdomen: Bowel sounds normal, soft, There is tenderness to palpation in epigastric area, no masses, no pulsatile masses. [] Skin: Warm, dry, no erythema, no rash. [] Back: No tenderness, no CVA tenderness. [] Extremities: No tenderness, no cyanosis, no clubbing, ROM intact, no edema. [] Neurologic: Alert and oriented X 3, normal motor function, normal sensory function, no focal deficits noted. [] Psychologic: Affect normal, judgement normal, mood normal. [] Current Patient Data: Labs: Laboratory Tests Test 02/16/20 09:35 02/16/20 09:55 02/16/20 11:15 Urine Collection Type Unknown Urine Color Yellow Urine Clarity Turbid Urine pH 7.5 Urine Specific Hinkle 1.015 Urine Protein >=300 mg/dL Urine Glucose (UA) Negative mg/dL Urine Ketones (Stick) Negative mg/dL Urine Blood Moderate Urine Nitrite Negative Urine Bilirubin Small Urine Urobilinogen Dipstick 1.0 mg/dL Urine Leukocyte Esterase Large Urine RBC Field obscured /HPF Urine WBC Tntc /HPF Urine Bacteria Many /HPF White Blood Count 15.5 x10^3/uL Red Blood Count 3.27 x10^6/uL Hemoglobin 9.2 g/dL Hematocrit 28.4 % Mean Corpuscular Volume 87 fL Mean Corpuscular Hemoglobin 28 pg Mean Corpuscular Hemoglobin Concent 32 g/dL Red Cell Distribution Width 14.7 % Platelet Count 182 x10^3/uL Neutrophils (%) (Auto) 80 % Lymphocytes (%) (Auto) 13 % Monocytes (%) (Auto) 5 % Eosinophils (%) (Auto) 2 % Basophils (%) (Auto) 1 % Neutrophils # (Auto) 12.3 x10^3/uL Lymphocytes # (Auto) 2.0 x10^3/uL Monocytes # (Auto) 0.8 x10^3/uL Eosinophils # (Auto) 0.3 x10^3/uL Basophils # (Auto) 0.1 x10^3/uL Prothrombin Time 13.9 SEC Prothromb Time International Ratio 1.1 Activated Partial Thromboplast Time 33 SEC Sodium Level 140 mmol/L Potassium Level 4.6 mmol/L Chloride Level 99 mmol/L Carbon Dioxide Level 24 mmol/L Anion Gap 17 Blood Urea Nitrogen 51 mg/dL Creatinine 7.5 mg/dL Estimated GFR (Cockcroft-Gault) 5.3 BUN/Creatinine Ratio 7 Glucose Level 126 mg/dL Calcium Level < 5.0 mg/dL Magnesium Level 1.2 mg/dL Total Bilirubin 0.4 mg/dL Aspartate Amino Transf (AST/SGOT) 26 U/L Alanine Aminotransferase (ALT/SGPT) 8 U/L Alkaline Phosphatase 136 U/L Troponin I Quantitative < 0.017 ng/mL Total Protein 7.4 g/dL Albumin 2.9 g/dL Albumin/Globulin Ratio 0.6 Lipase 114 U/L Lactic Acid Level 1.0 mmol/L Current Medications Medications (Trade) Dose Ordered Sig/Mathieu Route PRN Reason Start Time Stop Time Status Last Admin Dose Admin Multi-Ingredient Mouthwash/Gargle (Gi Cocktail) 20 ml 1X ONCE SWSW 02/16/20 10:00 02/16/20 10:01 DC 02/16/20 10:14 Famotidine (Pepcid Vial) 20 mg 1X ONCE IVP 02/16/20 10:00 02/16/20 10:01 DC 02/16/20 10:14 Sodium Chloride 1,000 ml @ 1,000 mls/hr Q1H IV 02/16/20 10:00 02/16/20 10:59 DC 02/16/20 10:13 Ondansetron HCl (Zofran) 4 mg 1X ONCE IVP 02/16/20 10:00 02/16/20 10:01 DC 02/16/20 10:14 Ceftriaxone Sodium (Rocephin) 1 gm 1X ONCE IVP 02/16/20 10:30 02/16/20 10:31 DC 02/16/20 11:19 Calcium Chloride (Calcium Chloride) 1,000 mg 1X ONCE IV 02/16/20 10:30 02/16/20 10:31 DC 02/16/20 10:45 Magnesium Sulfate 50 ml @ 25 mls/hr 1X ONCE IV 02/16/20 11:00 02/16/20 12:59 DC 02/16/20 10:45 Morphine Sulfate (Morphine Sulfate) 4 mg 1X ONCE IV 02/16/20 11:30 02/16/20 11:31 DC 02/16/20 11:58 Calcium Chloride (Calcium Chloride) 1,000 mg 1X ONCE IV 02/16/20 11:30 02/16/20 11:31 DC 02/16/20 11:58 Hydralazine HCl (Apresoline Inj) 10 mg 1X ONCE IVP 02/16/20 12:45 02/16/20 12:46 DC 02/16/20 12:36 EKG: EKG: EKG was done at 957, read by this physician at that time, heart rate of 83 beats per minute, sinus rhythm, PVC present, prolonged QT and prolonged QTC interval. No STEMI. Radiology/Procedures: Radiology/Procedures: [][facility] [address] [place] [address] IMAGING REPORT Signed PATIENT: EVIN GARCIA ACCOUNT: [id number] : 1945 LOCATION: ER AGE: 74 SEX: F EXAM STATUS: REG ER ORD. PHYSICIAN: MARGARITO MONTANEZ DO REASON: abdominal pain NOT READY FOR CT 11:00AM, TO WAIT 10 MORE MIN PER RN MAURO UN PROCEDURE: CT ABDOMEN PELVIS WO CONTRAST CT STUDY OF THE ABDOMEN AND PELVIS WITHOUT CONTRAST CLINICAL INDICATIONS: Abdominal pain. History of cervical cancer. TECHNIQUE: Noncontrast helical CT scanning of the abdomen and pelvis was performed. Without contrast, the sensitivity to detect organ pathology and GI tract pathology is decreased. PQRS compliance Statement One or more of the following individualized dose reduction techniques were utilized for this study: 1. Automated exposure control 2. Adjustment of the mA and/or kV according to patient size 3. Use of iterative reconstruction technique COMPARISON: January 07, 2019. FINDINGS: The liver and spleen are unremarkable on this noncontrast study. No focal enlargement of the pancreas is seen. Pancreatic calcifications are again noted. No extrahepatic biliary ductal dilatation is seen. Gallstones are seen within the neck of the gallbladder. Gallbladder is not abnormally distended and no gallbladder wall thickening is seen. No focal aneurysmal dilatation of the abdominal aorta is seen. Aortobifemoral bypass graft is present. Retroperitoneal nodularity is seen which may represent lymph nodes. This is unchanged. Uterus is surgically absent. Severe hydronephrosis and hydroureter is present. A left ureteral stent is in place and the proximal pigtail is seen within the distended extrarenal pelvis. The distal pigtail is seen extending into the lumen of urinary bladder. No stone is evident within the left ureter adjacent to the left ureteral stent. Right renal atrophy is seen. No renal stone is seen. Upper pole right renal cyst is again evident and is unchanged. No further workup is needed. No hydronephrosis or hydroureter is seen on the right side. However, a distal right ureteral stone is seen measuring 2 mm in size located approximately 3 cm proximal to the UVJ. On the previous study, this stone could be visualized in this area but the hydronephrosis and hydroureter seen previously has resolved. Perinephric inflammatory stranding is seen around the left kidney but no perinephric fluid collection is seen. There is a small amount of dependent free fluid within the pelvis. No obstructive bowel pattern is seen. No free air is evident. Breathing motion artifact is seen within the lung bases. Chronic scarring is seen within the lingula. Minimal pericardial effusion is seen which has been noted previously. This may be seen normally. No lytic process is seen. IMPRESSION: Chronic severe left-sided hydronephrosis and hydroureter with a left ureteral stent in place. No stone is evident within the upper left urinary tract. There is a chronic nonobstructing 2 mm stone within the distal right ureter located 3 cm proximal to the UVJ. The previously seen right-sided hydronephrosis and hydroureter has resolved. Potentially, this could be secondary to decreased urine output if there is history of renal failure. Cholelithiasis. Small amount of dependent free fluid is seen within the pelvis. Electronically signed by: Roderick Neil MD (02/16/2020 12:24 PM) [id number] DICTATED and SIGNED BY: RODERICK NEIL MD DATE: 02/16/20 1224 Course & Med Decision Making: Course & Med Decision Making Pertinent Labs and Imaging studies reviewed. (See chart for details) Patient is a 73-year-old female who was found to have hypocalcemia and hypo- magnesium. She also has severe left-sided hydronephrosis and hydroureter. Patient has multiple kidney stones in the right side. Patient also has a gallstone. Patient was found to have UTI as well. There is no urology service at this [facility], discussed with Dr. Handley, hospitalist on-call today recommended to transfer patient to [facility]. Discussed with Dr. Kyle Talbert, hospitalist at [facility] who agreed to accepted patient there. Patient was found to have UTI, she was given a liter of saline with 1 g of Rocephin IV. Patient was given 4 mg of Zofran IV for nausea, 4 mg morphine IV for pain control. Patient was given 2 g of magnesium sulfate IV, 2g calcium chloride IV. Her blood pressure was elevated, patient was given 20 mg of hydralazine IV. Patient will be transferred to [facility] for specialist evaluation. Critical care time was [45] minutes which includes time at bedside, spent in discussion of patient's care with specialist and/or family members, with interpretation of laboratory and/or radiological studies and is exclusive of procedures. Dragon Disclaimer: Dragon Disclaimer: This electronic medical record was generated, in whole or in part, using a voice recognition dictation system. Departure Departure Impression: Primary Impression: Hydronephrosis of left kidney Additional Impressions: Kidney stone UTI (urinary tract infection) Renal failure Hypocalcemia Hypomagnesemia Flank pain Hypertension Disposition: TRANSFER [facility] (Transferred to [facility], accepted by Dr. Antonio Buchanan) Condition: IMPROVED Referrals: PARIS CASTILLO MD (PCP) MARGARITO MONTANEZ DO February 16, 2020 09:47
[2020-02-16] MEDS ORDERED: LIDO:MAALOX 1:1 20 ML SINGLE DOSE. SWSW ONE (10:00)
[2020-02-16] MEDS ORDERED: IV NORMAL SALINE 1000ML BAG 1,000 ML IV SCH (10:00)
[2020-02-16] MEDS ORDERED: FAMOTIDINE 20 MG/2 ML VIAL IVP ONE (10:00)
[2020-02-16] MEDS ORDERED: ONDANSETRON PF 4 MG/2 ML VIAL. IVP ONE ×2 (10:00→15:45)
[2020-02-16 10:03] LABS: BILIRUBIN,URINE SMALL (NEG); CLARITY,URINE TURBID; NITRITE,URINE NEGATIVE (NEG); PH,URINE 7.5 (<5.0-8.0); PROTEIN,URINE >=300 mg/dL (NEG-TRACE)
[2020-02-16 10:04] LABS: COLOR,URINE YELLOW
[2020-02-16 10:05] LABS: BASO # 0.1 x10^3/uL (0.0-0.2); BASO % 1 % (0-3); EOS # 0.3 x10^3/uL (0.0-0.7); EOS % 2 % (0-3); HEMATOCRIT 28.4 % (36.0-47.0); HEMOGLOBIN 9.2 g/dL (12.0-15.5); LYMPH % 13 % (24-48); MEAN CORPUSCULAR HEMOGLOBIN 28 pg (25-35); MEAN CORPUSCULAR HGB CONC 32 g/dL (31-37); MEAN CORPUSCULAR VOLUME 87 fL (79-100); MONO # 0.8 x10^3/uL (0.0-1.1); MONO % 5 % (0-9); NEUT # 12.3 x10^3/uL (1.8-7.7); NEUT % 80 % (31-73); PLATELET COUNT 182 x10^3/uL (140-400); RED BLOOD COUNT 3.27 x10^6/uL (3.50-5.40); RED CELL DISTRIBUTION WIDTH 14.7 % (11.5-14.5); WHITE BLOOD COUNT 15.5 x10^3/uL (4.0-11.0)
[2020-02-16 10:11] LABS: PROTHROMBIN TIME PATIENT 13.9 SEC (11.7-14.0)
[2020-02-16 10:16] LABS: BACTERIA,URINE MANY /HPF (0-FEW); RBC,URINE FIELD OBSCURED /HPF (0-2); WBC,URINE TNTC /HPF (0-4)
[2020-02-16 10:19] LABS: ALBUMIN 2.9 g/dL (3.4-5.0); ALBUMIN/GLOBULIN RATIO 0.6 (1.0-1.7); ALK PHOS 136 U/L (46-116); ALT (SGPT) 8 U/L (14-59); ANION GAP 17 (6-14); AST (SGOT) 26 U/L (15-37); BLOOD UREA NITROGEN 51 mg/dL (7-20); BUN/CREATININE RATIO 7 (6-20); CARBON DIOXIDE 24 mmol/L (21-32); CHLORIDE 99 mmol/L (98-107); CREATININE 7.5 mg/dL (0.6-1.0); GFR 5.3; GLUCOSE 126 mg/dL (70-99); LIPASE 114 U/L (73-393); MAGNESIUM 1.2 mg/dL (1.8-2.4); SODIUM 140 mmol/L (136-145); TOTAL BILIRUBIN 0.4 mg/dL (0.2-1.0); TOTAL PROTEIN 7.4 g/dL (6.4-8.2)
[2020-02-16 10:29] LABS: CALCIUM < 5.0 mg/dL (8.5-10.1)
[2020-02-16 10:30] LABS: POTASSIUM 4.6 mmol/L (3.5-5.1)
[2020-02-16] MEDS ORDERED: cefTRIAXone IV Push 1 GM VIAL. IVP ONE (10:30)
[2020-02-16] MEDS ORDERED: CALCIUM CHLORIDE 1,000 MG/10 ML DISP.SYRIN IV ONE ×2 (10:30→11:30)
[2020-02-16] MEDS ORDERED: MAGNESIUM SULFATE 2GM 50 ML IV ONE (11:00)
[2020-02-16] MEDS ORDERED: MORPHINE SULFATE 4 MG/ML VIAL. IV ONE ×2 (11:30→15:45)
--- NOTE | 2020-02-16 12:27 | RAD ---
CT STUDY OF THE ABDOMEN AND PELVIS WITHOUT CONTRAST CLINICAL INDICATIONS: Abdominal pain. History of cervical cancer. TECHNIQUE: Noncontrast helical CT scanning of the abdomen and pelvis was performed. Without contrast, the sensitivity to detect organ pathology and GI tract pathology is decreased. PQRS compliance Statement One or more of the following individualized dose reduction techniques were utilized for this study: 1. Automated exposure control 2. Adjustment of the mA and/or kV according to patient size 3. Use of iterative reconstruction technique COMPARISON: January 07, 2019. FINDINGS: The liver and spleen are unremarkable on this noncontrast study. No focal enlargement of the pancreas is seen. Pancreatic calcifications are again noted. No extrahepatic biliary ductal dilatation is seen. Gallstones are seen within the neck of the gallbladder. Gallbladder is not abnormally distended and no gallbladder wall thickening is seen. No focal aneurysmal dilatation of the abdominal aorta is seen. Aortobifemoral bypass graft is present. Retroperitoneal nodularity is seen which may represent lymph nodes. This is unchanged. Uterus is surgically absent. Severe hydronephrosis and hydroureter is present. A left ureteral stent is in place and the proximal pigtail is seen within the distended extrarenal pelvis. The distal pigtail is seen extending into the lumen of urinary bladder. No stone is evident within the left ureter adjacent to the left ureteral stent. Right renal atrophy is seen. No renal stone is seen. Upper pole right renal cyst is again evident and is unchanged. No further workup is needed. No hydronephrosis or hydroureter is seen on the right side. However, a distal right ureteral stone is seen measuring 2 mm in size located approximately 3 cm proximal to the UVJ. On the previous study, this stone could be visualized in this area but the hydronephrosis and hydroureter seen previously has resolved. Perinephric inflammatory stranding is seen around the left kidney but no perinephric fluid collection is seen. There is a small amount of dependent free fluid within the pelvis. No obstructive bowel pattern is seen. No free air is evident. Breathing motion artifact is seen within the lung bases. Chronic scarring is seen within the lingula. Minimal pericardial effusion is seen which has been noted previously. This may be seen normally. No lytic process is seen. IMPRESSION: Chronic severe left-sided hydronephrosis and hydroureter with a left ureteral stent in place. No stone is evident within the upper left urinary tract. There is a chronic nonobstructing 2 mm stone within the distal right ureter located 3 cm proximal to the UVJ. The previously seen right-sided hydronephrosis and hydroureter has resolved. Potentially, this could be secondary to decreased urine output if there is history of renal failure. Cholelithiasis. Small amount of dependent free fluid is seen within the pelvis. Electronically signed by: Elijah Neil MD (02/16/2020 12:24 PM) [id number]
[2020-02-16] MEDS ORDERED: hydrALAZINE 20 MG/ML VIAL. IVP ONE ×2 (12:45→13:45)
[2020-02-16 16:19] VITALS: BP 151/66
--- NOTE | 2020-02-17 08:07 | EKG ---
[facility] [address] [place] [address] Test Date: 2020-02-16 Test Time: 09:57:02 Pat Name: EVIN GARCIA Department: Room: Gender: F Nursing Technician: : [id number] Requested By: MARGARITO MONTANEZ Order Number: [id number] Reading MD: Jay Ham Measurements Intervals [place] Rate: 83 P: [place]: QRS: 36 QRSD: 80 T: 61 QT: 446 QTc: 525 Interpretive Statements SINUS RHYTHM T ABNORMALITY IN HIGH LATERAL LEADS PROLONGED QT ABNORMAL ECG Electronically Signed On 02-17-2020 8:59:20 CDT by Jay Ham
== END 2020-02-16 16:45 | disposition short-term general hospital (02) ==
LOC: ER 09:25
DX: N13.2 Hydronephrosis with renal and ureteral calculous obstruction (principal); N39.0 Urinary tract infection, site not specified; N19 Unspecified kidney failure; E83.51 Hypocalcemia; R11.2 Nausea with vomiting, unspecified; E83.42 Hypomagnesemia; I10 Essential (primary) hypertension; J44.9 Chronic obstructive pulmonary disease, unspecified; F17.200 Nicotine dependence, unspecified, uncomplicated; Z87.442 Personal history of urinary calculi; Z88.5 Allergy status to narcotic agent; Z88.6 Allergy status to analgesic agent
CPT/HCPCS: 36415; 74176; 80053; 81001; 83605; 83690; 83735; 84484; 85025; 85610; 85730; 87040; 87086; 93005; 96361; 96365; 96366; 96375; 96376; 99285; J0360; J0696; J2270; J2405; J3475; J3490; J7030